=== PATIENT | female | born 1975 | race American Indian/Alaskan Native ===

== ENCOUNTER 2017-10-09 12:31 | Emergency (ER) | payer SELFPAY ==
[2017-10-09 13:29] LABS: Basophils % (Auto) 0.5 % (0.0-1.8); Eosinophils # (Auto) 0.1 K/mm3 (0.0-0.4); Eosinophils % (Auto) 0.9 % (0.0-4.3); Hematocrit 38.3 % (30.3-42.9); Hemoglobin 12.9 gm/dl (10.1-14.3); Lymphocytes # (Auto) 1.2 K/mm3 (1.2-5.4); Lymphocytes % (Auto) 20.5 % (13.4-35.0); Mean Corpuscular HGB Conc 34 % (30-34); Mean Corpuscular Hemoglobin 31 pg (28-32); Mean Corpuscular Volume 92 fl (79-97); Monocytes # (Auto) 0.4 K/mm3 (0.0-0.8); Monocytes % (Auto) 6.8 % (0.0-7.3); Platelet Count 251 K/mm3 (140-440); Red Blood Count 4.16 M/mm3 (3.65-5.03); Red Cell Distribution Width 13.3 % (13.2-15.2)
[2017-10-09 13:45] LABS: Alanine Aminotransferase 6 units/L (7-56); Albumin 3.8 g/dL (3.9-5); BUN/Creatinine Ratio 18; Blood Urea Nitrogen 7 mg/dL (7-17); Calcium 9.4 mg/dL (8.4-10.2); Hemolysis Index 6; Lipase 35 units/L (13-60)
[2017-10-09] MEDS ORDERED: NACL 0.9% 1000 ML 1,000 ML IV ONE (16:27)
[2017-10-09] MEDS ORDERED: TORADOL IV ONE (16:27)
[2017-10-09] MEDS ORDERED: PEPCID IV ONE (16:27)
[2017-10-09] MEDS ORDERED: ZOFRAN IV ONE ×2 (16:27→19:57)
[2017-10-09 17:20] LABS: HCG Qualitative,Urine TNR (Negative)
[2017-10-09 17:26] LABS: Bacteria,Urine 1+ /HPF (Negative); Mucus,Urine FEW /HPF
[2017-10-09 17:30] LABS: Bilirubin,Urine NEG (Negative); Blood,Urine NEG (Negative); Color,Urine Yellow (Yellow); Urobilinogen,Urine < 2.0 mg/dL (<2.0)
--- NOTE | 2017-10-09 18:42 | Cat Scan Report ---
FINAL REPORT EXAM: CT ABDOMEN PELVIS W CON HISTORY: NV upper abd pain TECHNIQUE: CT of the abdomen and pelvis was performed after the administration of intravenous contrast. Subsequently, CT of the abdomen and pelvis was performed in the delayed phase. Reconstructions were included in the coronal and sagittal planes. PRIORS: None. FINDINGS: Lower thorax: A large bulla is seen in the right lower lobe. There is a nodular density adjacent to the medial portion of this bulla measuring approximately 1.3 centimeters. The visualized portions of the heart are normal. Liver: The liver is normal in attenuation. There is mild intrahepatic biliary ductal dilation. No focal hepatic lesions. Focal fat is seen adjacent to the fissure for ligamentum teres. Gallbladder/ biliary system: There is likely cholelithiasis within the fundus of the gallbladder. No gallbladder wall thickening is seen. The common bile duct appears nondilated. Spleen: No splenic lesions are seen. Pancreas: No pancreatic lesions are seen. No pancreatic duct dilation. Kidneys: No renal masses, cysts or hydronephrosis. Adrenal glands: No adrenal masses. Vasculature: The abdominal and pelvic vasculature is patent without variant anatomy. Lymph nodes: Multiple prominent kimani hepatis, paraceliac, retroperitoneal and perigastric lymph nodes are seen. Bowel, mesentery, peritoneum: No bowel obstruction. No free fluid or free air. The appendix is normal. No colonic diverticulosis. There is wall thickening of the distal esophagus. There distention of the stomach with fluid. Edema is seen surrounding proximal duodenum. A duodenal diverticulum is seen off of the 2nd portion of the duodenum. Urinary bladder: No filling defects are seen. Pelvis: Normal anatomy is noted. No masses. There is a small amount of free fluid in the pelvis. Abdominal wall: No abdominal wall hernia or other subcutaneous findings. Bones: No acute or chronic osseous finding. IMPRESSION: 1. Inflammatory changes surrounding the proximal duodenum may represent duodenitis. Diverticulum off of the 2nd portion of the duodenum. 2. Nonspecific wall thickening of the distal esophagus may represent esophagitis. Suggest further evaluation with EGD when feasible. 3. Nonspecific distention of the stomach with fluid. 4. Small volume of free fluid in the pelvis. 5. Mild intrahepatic biliary ductal dilation. Consider further evaluation with right upper quadrant ultrasound or MRCP. 6. Nonspecific upper abdominal lymph nodes may be reactive versus neoplastic. 7. Probable cholelithiasis. 8. Large bulla in the right lower lobe with an adjacent 1.3 centimeter nodular opacity. This may represent scarring although an underlying pulmonary nodule is not excluded. Recommend further evaluation with chest CT to exclude other pulmonary nodules.
[2017-10-09] MEDS ORDERED: ZOFRAN ONE (19:46)
[2017-10-09] MEDS ORDERED: MORPHINE ONE (19:46)
[2017-10-09] MEDS ORDERED: MORPHINE IV ONE (19:57)
--- NOTE | 2017-10-09 20:28 | Emergency Department Report ---
ED Abdominal Pain HPI - General Chief Complaint: Abdominal Pain Stated Complaint: ABDOMINAL PAIN Time Seen by Provider: 10/09/17 16:05 Source: patient Mode of arrival: Ambulatory Limitations: No Limitations - History of Present Illness Initial Comments: Patient is a 42-year-old female past history of diabetes who is presenting with abdominal pain for the last week. Patient has had nausea vomiting and diarrhea for approximately a week has been waxing waning but has never gone away. Patient denies any fevers chills cough chest pain at this time. Patient does feels that she's having some abdominal distention. Patient states the pain now as a 10 out of 10. Severity scale (0 -10): 4 - Related Data Previous Rx's Medication Instructions Recorded Last Taken Type Ciprofloxacin HCl [Cipro] 500 mg PO BID #14 tablet 10/09/17 Unknown Rx Dicyclomine [Bentyl] 20 mg PO QID #20 tablet 10/09/17 Unknown Rx HYDROcodone/APAP 5-325 [[place] 1 each PO Q6HR PRN #14 tablet 10/09/17 Unknown Rx 5/325] Ondansetron [Zofran Odt] 4 mg PO Q8HR #10 tab.rapdis 10/09/17 Unknown Rx Allergies Allergy/AdvReac Type Severity Reaction Status Date / Time No Known Allergies Allergy Unverified 03/12/13 12:14 ED Review of Systems ROS: Stated complaint: ABDOMINAL PAIN Other details as noted in HPI Comment: All other systems reviewed and negative ED Past Medical Hx - Past Medical History Hx Diabetes: Yes - Surgical History Additional Surgical History: Tubal Ligation - Social History Smoking Status: Never Smoker Substance Use Type: None - Medications Home Medications: Home Medications Medication Instructions Recorded Confirmed Last Taken Type Ciprofloxacin HCl [Cipro] 500 mg PO BID #14 tablet 10/09/17 Unknown Rx Dicyclomine [Bentyl] 20 mg PO QID #20 tablet 10/09/17 Unknown Rx HYDROcodone/APAP 5-325 [[place] 1 each PO Q6HR PRN #14 tablet 10/09/17 Unknown Rx 5/325] Ondansetron [Zofran Odt] 4 mg PO Q8HR #10 tab.rapdis 10/09/17 Unknown Rx ED Physical Exam - General Limitations: No Limitations General appearance: alert, in no apparent distress - Head Head exam: Present: atraumatic, normocephalic - Eye Eye exam: Present: normal appearance - ENT ENT exam: Present: mucous membranes moist - Neck Neck exam: Present: normal inspection - Respiratory Respiratory exam: Present: normal lung sounds bilaterally. Absent: respiratory distress, wheezes, rales, rhonchi - Cardiovascular Cardiovascular Exam: Present: regular rate, normal rhythm. Absent: systolic murmur, diastolic murmur, rubs, gallop - GI/Abdominal GI/Abdominal exam: Present: soft, distended, tenderness (diffuse), normal bowel sounds. Absent: guarding, rebound, rigid - Extremities Exam Extremities exam: Present: normal inspection - Back Exam Back exam: Present: normal inspection - Neurological Exam Neurological exam: Present: alert, oriented X3 - Psychiatric Psychiatric exam: Present: normal affect, normal mood - Skin Skin exam: Present: warm, dry, intact, normal color. Absent: rash ED Course Vital Signs 10/09/17 10/09/17 10/09/17 12:45 16:55 17:00 Temperature 98.4 F Pulse Rate 98 H Respiratory 14 18 Rate Blood Pressure 104/80 O2 Sat by Pulse 94 Oximetry ED Medical Decision Making - Lab Data Result diagrams: 10/09/17 13:01 10/09/17 13:01 Lab Results 10/09/17 10/09/17 10/09/17 Range/Units 13:01 13:01 13:01 WBC 5.8 (4.5-11.0) K/mm3 RBC 4.16 (3.65-5.03) M/mm3 Hgb 12.9 (10.1-14.3) gm/dl Hct 38.3 (30.3-42.9) % MCV 92 (79-97) fl MCH 31 (28-32) pg MCHC 34 (30-34) % RDW 13.3 (13.2-15.2) % Plt Count 251 (140-440) K/mm3 Lymph % (Auto) 20.5 (13.4-35.0) % [place] % (Auto) 6.8 (0.0-7.3) % Eos % (Auto) 0.9 (0.0-4.3) % Baso % (Auto) 0.5 (0.0-1.8) % Lymph # 1.2 (1.2-5.4) K/mm3 [place] # 0.4 (0.0-0.8) K/mm3 Eos # 0.1 (0.0-0.4) K/mm3 Baso # 0.0 (0.0-0.1) K/mm3 Seg Neutrophils % 71.3 H (40.0-70.0) % Seg Neutrophils # 4.1 (1.8-7.7) K/mm3 Sodium 136 L (137-145) mmol/L Potassium 4.9 (3.6-5.0) mmol/L Chloride 95.8 L (98-107) mmol/L Carbon Dioxide 27 (22-30) mmol/L Anion Gap 18 mmol/L BUN 7 (7-17) mg/dL Creatinine 0.4 L (0.7-1.2) mg/dL Estimated GFR > 60 ml/min BUN/Creatinine Ratio 18 % Glucose 355 H (65-100) mg/dL Calcium 9.4 (8.4-10.2) mg/dL Total Bilirubin 0.60 (0.1-1.2) mg/dL AST 10 (5-40) units/L ALT 6 L (7-56) units/L Alkaline Phosphatase 72 (35-129) units/L Total Protein 7.5 (6.3-8.2) g/dL Albumin 3.8 L (3.9-5) g/dL Albumin/Globulin Ratio 1.0 % Lipase 35 (13-60) units/L HCG, Qual Negative (Negative) Urine Color (Yellow) Urine Turbidity (Clear) Urine pH (5.0-7.0) Ur Specific [place] (1.003-1.030) Urine Protein (Negative) mg/dL Urine Glucose (UA) (Negative) mg/dL Urine Ketones (Negative) mg/dL Urine Blood (Negative) Urine Nitrite (Negative) Ur Reducing Substances Urine Bilirubin (Negative) Urine Ictotest Urine Urobilinogen (<2.0) mg/dL Ur Leukocyte Esterase (Negative) Urine WBC (Auto) (0.0-6.0) /HPF Urine RBC (Auto) (0.0-6.0) /HPF U Epithel Cells (Auto) (0-13.0) /HPF Urine Bacteria (Auto) (Negative) /HPF Urine Mucus /HPF Urine HCG, Qual 10/09/17 Range/Units 16:40 WBC (4.5-11.0) K/mm3 RBC (3.65-5.03) M/mm3 Hgb (10.1-14.3) gm/dl Hct (30.3-42.9) % MCV (79-97) fl MCH (28-32) pg MCHC (30-34) % RDW (13.2-15.2) % Plt Count (140-440) K/mm3 Lymph % (Auto) (13.4-35.0) % [place] % (Auto) (0.0-7.3) % Eos % (Auto) (0.0-4.3) % Baso % (Auto) (0.0-1.8) % Lymph # (1.2-5.4) K/mm3 [place] # (0.0-0.8) K/mm3 Eos # (0.0-0.4) K/mm3 Baso # (0.0-0.1) K/mm3 Seg Neutrophils % (40.0-70.0) % Seg Neutrophils # (1.8-7.7) K/mm3 Sodium (137-145) mmol/L Potassium (3.6-5.0) mmol/L Chloride (98-107) mmol/L Carbon Dioxide (22-30) mmol/L Anion Gap mmol/L BUN (7-17) mg/dL Creatinine (0.7-1.2) mg/dL Estimated GFR ml/min BUN/Creatinine Ratio % Glucose (65-100) mg/dL Calcium (8.4-10.2) mg/dL Total Bilirubin (0.1-1.2) mg/dL AST (5-40) units/L ALT (7-56) units/L Alkaline Phosphatase (35-129) units/L Total Protein (6.3-8.2) g/dL Albumin (3.9-5) g/dL Albumin/Globulin Ratio % Lipase (13-60) units/L HCG, Qual (Negative) Urine Color Yellow (Yellow) Urine Turbidity Clear (Clear) Urine pH 6.0 (5.0-7.0) Ur Specific [place] 1.038 H (1.003-1.030) Urine Protein 30 mg/dl (Negative) mg/dL Urine Glucose (UA) >=500 (Negative) mg/dL Urine Ketones 80 (Negative) mg/dL Urine Blood Neg (Negative) Urine Nitrite Neg (Negative) Ur Reducing Substances Not Reportable Urine Bilirubin Neg (Negative) Urine Ictotest Not Reportable Urine Urobilinogen < 2.0 (<2.0) mg/dL Ur Leukocyte Esterase Lg (Negative) Urine WBC (Auto) 76.0 H (0.0-6.0) /HPF Urine RBC (Auto) 6.0 (0.0-6.0) /HPF U Epithel Cells (Auto) 13.0 (0-13.0) /HPF Urine Bacteria (Auto) 1+ (Negative) /HPF Urine Mucus Few /HPF Urine HCG, Qual TNR - Radiology Data Radiology results: report reviewed CT abdomen and pelvis shows multiple findings. Patient has evidence of duodenitis and esophagitis with legs secondary to her vomiting. Patient also has cholelithiasis without signs of cholecystitis. Patient has some intrahepatic ductal dilation as well. Patient's bladder wall appears thickened consistent with acute cystitis. - Medical Decision Making Patient is a 42-year-old female who is presenting with abdominal pain nausea vomiting. Patient was hydrated and given pain meds and is feeling much better at the time of discharge. Patient will be started on antibiotics for her urinary tract infection will be referred to [facility] as well as a surgeon for potential removal of her gallbladder Critical care attestation.: If time is entered above; I have spent that time in minutes in the direct care of this critically ill patient, excluding procedure time. ED Disposition Clinical Impression: Hyperglycemia, Biliary colic Acute cystitis Qualifiers: Hematuria presence: without hematuria Qualified Code(s): N30.00 - Acute cystitis without hematuria Disposition: TO HOME OR SELFCARE Is pt being admited?: No Does the pt Need Aspirin: No Condition: Stable Instructions: Abdominal Pain (ED), Urinary Tract Infection in Women (ED), Biliary Colic (ED), Acute Nausea and Vomiting (ED) Prescriptions: Ciprofloxacin HCl [Cipro] 500 mg PO BID #14 tablet Dicyclomine [Bentyl] 20 mg PO QID #20 tablet HYDROcodone/APAP 5-325 [[place] 5/325] 1 each PO Q6HR PRN #14 tablet PRN Reason: Pain Ondansetron [Zofran Odt] 4 mg PO Q8HR #10 tab.rapdis Referrals: GBARIELLE OLIVARES MD [Primary Care Provider] - 3-5 Days
[2017-10-09 22:17] VITALS: BP 113/69
== END 2017-10-09 20:50 | disposition home or self-care (01) ==
LOC: ED 12:31
DX: K80.50 Calculus of bile duct without cholangitis or cholecystitis without obstruction (principal); N30.00 Acute cystitis without hematuria; E11.65 Type 2 diabetes mellitus with hyperglycemia; Z98.51 Tubal ligation status
CPT/HCPCS: 36415; 74177; 80053; 81001; 81025; 83690; 84703; 85025; 96361; 96374; 96375; 96376; 99284; J1885; J2270; J2405; J7030; Q9967

== ENCOUNTER 2019-02-18 12:02 | Inpatient (IN) | payer OTHER ==
[2019-02-18] MEDS ORDERED: NACL 0.9% 1000 ML 1,000 ML IV ONE ×4 (12:16→15:39)
[2019-02-18] MEDS ORDERED: PEPCID IV ONE (12:22)
[2019-02-18] MEDS ORDERED: ZOFRAN IV ONE (12:22)
--- NOTE | 2019-02-18 12:42 | Emergency Department Report ---
ED Abdominal Pain HPI - General Chief Complaint: Hyperglycemia Stated Complaint: HBS Time Seen by Provider: 02/18/19 12:15 Source: patient, EMS Mode of arrival: Stretcher Limitations: No Limitations - History of Present Illness Initial Comments: 43-year-old female with a past medical history of insulin-dependent diabetes and previous tubal ligation (denies other abd surgeries) presents to the hospital complaining of hyperglycemia and epigastric pain. Patient has not taken her asthma since yesterday. She is found lethargic on the floor by family members. She complains of 10/10 upper abdominal pain, constant, and worse with palpation. Positive associated nausea, vomiting, diarrhea. No dysuria or fever reported. Patient is lethargic and ill appearing but able to answer and nod to questions. Patient presented here in October 2018 for abdominal pain and CT abd/pelvis with IV contrast showed the followin. Inflammatory changes surrounding the proximal duodenum may represent duodenitis. Diverticulum off of the 2nd portion of the duodenum. 2. Nonspecific wall thickening of the distal esophagus may represent esophagitis. Suggest further evaluation with EGD when feasible. 3. Nonspecific distention of the stomach with fluid. 4. Small volume of free fluid in the pelvis. 5. Mild intrahepatic biliary ductal dilation. Consider further evaluation with right upper quadrant ultrasound or MRCP. 6. Nonspecific upper abdominal lymph nodes may be reactive versus neoplastic. 7. Probable cholelithiasis. 8. Large bulla in the right lower lobe with an adjacent 1.3 centimeter nodular opacity. This may represent scarring although an underlying pulmonary nodule is not excluded. Recommend further evaluation with chest CT to exclude other pulmonary nodules. - Related Data Previous Rx's Medication Instructions Recorded Last Taken Type Ciprofloxacin HCl [Cipro] 500 mg PO BID #14 tablet 10/09/17 Unknown Rx Dicyclomine [Bentyl] 20 mg PO QID #20 tablet 10/09/17 Unknown Rx HYDROcodone/APAP 5-325 [[place] 1 each PO Q6HR PRN #14 tablet 10/09/17 Unknown Rx 5/325] Ondansetron [Zofran Odt] 4 mg PO Q8HR #10 tab.rapdis 10/09/17 Unknown Rx Allergies Allergy/AdvReac Type Severity Reaction Status Date / Time No Known Allergies Allergy Unverified 03/12/13 12:14 ED Review of Systems ROS: Stated complaint: HBS Other details as noted in HPI Comment: All other systems reviewed and negative ED Past Medical Hx - Past Medical History Previous Medical History?: Yes Hx Diabetes: Yes - Surgical History Past Surgical History?: Yes Additional Surgical History: Tubal Ligation - Social History Smoking Status: Never Smoker Substance Use Type: None - Medications Home Medications: Home Medications Medication Instructions Recorded Confirmed Last Taken Type Ciprofloxacin HCl [Cipro] 500 mg PO BID #14 tablet 10/09/17 Unknown Rx Dicyclomine [Bentyl] 20 mg PO QID #20 tablet 10/09/17 Unknown Rx HYDROcodone/APAP 5-325 [[place] 1 each PO Q6HR PRN #14 tablet 10/09/17 Unknown Rx 5/325] Ondansetron [Zofran Odt] 4 mg PO Q8HR #10 tab.rapdis 10/09/17 Unknown Rx ED Physical Exam - General Limitations: No Limitations - Other Other exam information: General: Ill-appearing Eyes: Normal appearance, pupils equal reactive to light, extraocular movements intact ENT: Dry mucous membranes Neck: Normal appearance, no C-spine tenderness, no meningismus Chest: Clear to auscultation bilaterally, no wheezes, rales, or crackles Cardiovascular: Regular rate and rhythm Abdomen: Soft, nondistended, epigastric and right upper quadrant, right lower quadrant tenderness, no rebound or guarding, normal bowel sounds Back: Normal inspection, nontender Extremity: Normal inspection, no deformity, full range of motion Neuro: Lethargic and oriented 3, speech clear, no gross motor or sensory deficit Skin: No rash, warmth, or erythema ED Course Vital Signs 02/18/19 02/18/19 02/18/19 12:13 12:26 12:30 Temperature 98.1 F Pulse Rate 116 H Respiratory 28 H Rate Blood Pressure 94/61 Blood Pressure [Right] O2 Sat by Pulse 96 Oximetry 02/18/19 02/18/19 02/18/19 12:39 12:46 13:00 Temperature Pulse Rate 116 H 119 H Respiratory 28 H 24 14 Rate Blood Pressure 94/61 96/61 Blood Pressure [Right] O2 Sat by Pulse 96 97 98 Oximetry 02/18/19 02/18/19 02/18/19 13:15 13:30 13:45 Temperature Pulse Rate 115 H 119 H 111 H Respiratory 29 H 19 24 Rate Blood Pressure 100/68 106/77 86/51 Blood Pressure [Right] O2 Sat by Pulse 97 97 98 Oximetry 02/18/19 02/18/19 02/18/19 14:00 14:08 14:10 Temperature Pulse Rate 110 H 111 H 115 H Respiratory 16 25 H 30 H Rate Blood Pressure 91/51 91/51 118/77 Blood Pressure [Right] O2 Sat by Pulse 99 98 Oximetry 02/18/19 02/18/19 02/18/19 14:12 14:14 14:16 Temperature Pulse Rate 114 H 113 H 111 H Respiratory 24 21 21 Rate Blood Pressure 118/77 118/77 98/58 Blood Pressure [Right] O2 Sat by Pulse 99 98 98 Oximetry 02/18/19 02/18/19 02/18/19 14:18 14:22 15:14 Temperature Pulse Rate 111 H 113 H Respiratory 12 26 H Rate Blood Pressure 102/59 118/80 Blood Pressure 117/88 [Right] O2 Sat by Pulse 99 Oximetry - Consultations Consultation #1: 02/18/19 15:40 case d/w Gen surgeon health information tech Dr cano, will come to evaluate pt. henry request. pt will likely go to OR for ex lap ED Medical Decision Making - Lab Data Result diagrams: 02/18/19 13:18 02/18/19 13:18 Lab Results 02/18/19 02/18/19 02/18/19 Range/Units 12:36 13:18 13:18 WBC 4.7 (4.5-11.0) K/mm3 RBC 4.43 (3.65-5.03) M/mm3 Hgb 14.3 (10.1-14.3) gm/dl Hct 43.6 H (30.3-42.9) % MCV 99 H (79-97) fl MCH 32 (28-32) pg MCHC 33 (30-34) % RDW 13.3 (13.2-15.2) % Plt Count 345 (140-440) K/mm3 Lymph % (Auto) 5.3 L (13.4-35.0) % [place] % (Auto) 5.6 (0.0-7.3) % Eos % (Auto) 0.0 (0.0-4.3) % Baso % (Auto) 0.1 (0.0-1.8) % Lymph # 0.2 L (1.2-5.4) K/mm3 [place] # 0.3 (0.0-0.8) K/mm3 Eos # 0.0 (0.0-0.4) K/mm3 Baso # 0.0 (0.0-0.1) K/mm3 Seg Neutrophils % 89.0 H (40.0-70.0) % Seg Neutrophils # 4.2 (1.8-7.7) K/mm3 VBG pH (7.320-7.420) Sodium 135 L (137-145) mmol/L Potassium 5.2 H (3.6-5.0) mmol/L Chloride 90.8 L (98-107) mmol/L Carbon Dioxide 16 L (22-30) mmol/L Anion Gap 33 mmol/L BUN 25 H (7-17) mg/dL Creatinine 1.0 (0.7-1.2) mg/dL Estimated GFR > 60 ml/min BUN/Creatinine Ratio 25 % Glucose 988 H* (65-100) mg/dL POC Glucose > 500 H (70-105) Calcium 8.7 (8.4-10.2) mg/dL Phosphorus (2.5-4.5) mg/dL Magnesium (1.7-2.3) mg/dL Total Bilirubin 0.50 (0.1-1.2) mg/dL AST 22 (5-40) units/L ALT 10 (7-56) units/L Alkaline Phosphatase 58 (35-129) units/L Total Protein 6.0 L (6.3-8.2) g/dL Albumin 3.5 L (3.9-5) g/dL Albumin/Globulin Ratio 1.4 % Lipase 32 (13-60) units/L HCG, Qual (Negative) 02/18/19 02/18/19 02/18/19 Range/Units 13:18 13:18 13:18 WBC (4.5-11.0) K/mm3 RBC (3.65-5.03) M/mm3 Hgb (10.1-14.3) gm/dl Hct (30.3-42.9) % MCV (79-97) fl MCH (28-32) pg MCHC (30-34) % RDW (13.2-15.2) % Plt Count (140-440) K/mm3 Lymph % (Auto) (13.4-35.0) % [place] % (Auto) (0.0-7.3) % Eos % (Auto) (0.0-4.3) % Baso % (Auto) (0.0-1.8) % Lymph # (1.2-5.4) K/mm3 [place] # (0.0-0.8) K/mm3 Eos # (0.0-0.4) K/mm3 Baso # (0.0-0.1) K/mm3 Seg Neutrophils % (40.0-70.0) % Seg Neutrophils # (1.8-7.7) K/mm3 VBG pH 7.319 L (7.320-7.420) Sodium (137-145) mmol/L Potassium (3.6-5.0) mmol/L Chloride (98-107) mmol/L Carbon Dioxide (22-30) mmol/L Anion Gap mmol/L BUN (7-17) mg/dL Creatinine (0.7-1.2) mg/dL Estimated GFR ml/min BUN/Creatinine Ratio % Glucose (65-100) mg/dL POC Glucose (70-105) Calcium (8.4-10.2) mg/dL Phosphorus 8.20 H (2.5-4.5) mg/dL Magnesium 1.80 (1.7-2.3) mg/dL Total Bilirubin (0.1-1.2) mg/dL AST (5-40) units/L ALT (7-56) units/L Alkaline Phosphatase (35-129) units/L Total Protein (6.3-8.2) g/dL Albumin (3.9-5) g/dL Albumin/Globulin Ratio % Lipase (13-60) units/L HCG, Qual Negative (Negative) - EKG Data -: EKG Interpreted by [facility] EKG shows normal: sinus rhythm, axis (qrs 82), QRS complexes (qrsd 88), ST-T waves (no stemi) Rate: tachycardia (117) - Radiology Data Radiology results: report reviewed CT abdomen pelvis w con INDICATION: MAIN: TODAY, upper and lower abd pain, uncontrolled dm [id number], 100ML. TECHNIQUE: All CT scans at this location are performed using CT dose reduction for ALARA by means of automated exposure control. COMPARISON: 10/09/2017 FINDINGS: Large bulla in the right lower lobe but no acute disease in the lung bases. Since the previous exam, there has developed considerable ascites throughout the abdomen and pelvis. In addition, there is now moderate free intraperitoneal gas. Inflammatory changes are again demonstrated in the duodenum and distal stomach. The entire small bowel is thick walled and edematous mild but less prominent changes are seen in the colon, especially the transverse colon. Liver, spleen, pancreas, kidneys and adrenals are negative. There appear to be splenic and gastrohepatic varices. Pelvis Bladder is moderately distended. Uterus appears negative. IMPRESSION: 1. Free intraperitoneal air with extensive inflammatory change involving the entire small bowel and, to a lesser extent, the colon. Location of the bowel perforation is not known. The small bowel findings are new since October. Dr. Benitez in the ER was notified at 1525 hours EST. 2. Small, possibly cirrhotic liver, with splenic and gastrohepatic varices as well as ascites. The ascites is also a new finding since October. - Medical Decision Making Urine collection, Blood cultures, and lactic ordered and pending at disposition Patient has DKA plus perforating this with extensive bowel inflammation Patient treated with Levaquin and Flagyl General surgeon consulted for possible surgery. Hospitalist informed for admission pt will need icu admission. - Differential Diagnosis DKA, gastritis, UTI, cholecystitis Critical Care Time: No Critical care attestation.: If time is entered above; I have spent that time in minutes in the direct care of this critically ill patient, excluding procedure time. ED Disposition Clinical Impression: DKA (diabetic ketoacidoses), Perforated abdominal viscus, Inflammation of small intestine Disposition: OP ADMIT IP TO THIS HOSP Is pt being admited?: Yes Condition: Serious Time of Disposition: 15:59 (DR Gutierrez/hosp)
[2019-02-18] MEDS ORDERED: D50W (25GM) Syringe IV PRN (12:51)
[2019-02-18] MEDS ORDERED: HumuLIN R IV ONE (12:52)
[2019-02-18 13:32] LABS: Basophils % (Auto) 0.1 % (0.0-1.8); Hematocrit 43.6 % (30.3-42.9); Hemoglobin 14.3 gm/dl (10.1-14.3); Lymphocytes # (Auto) 0.2 K/mm3 (1.2-5.4); Lymphocytes % (Auto) 5.3 % (13.4-35.0); Mean Corpuscular HGB Conc 33 % (30-34); Mean Corpuscular Volume 99 fl (79-97); Monocytes # (Auto) 0.3 K/mm3 (0.0-0.8); Monocytes % (Auto) 5.6 % (0.0-7.3); Platelet Count 345 K/mm3 (140-440); Red Blood Count 4.43 M/mm3 (3.65-5.03); Red Cell Distribution Width 13.3 % (13.2-15.2)
[2019-02-18 14:24] LABS: Alanine Aminotransferase 10 units/L (7-56); Albumin 3.5 g/dL (3.9-5); BUN/Creatinine Ratio 25; Blood Urea Nitrogen 25 mg/dL (7-17); Calcium 8.7 mg/dL (8.4-10.2); Hemolysis Index 16
[2019-02-18] MEDS ORDERED: MORPHINE IV ONE (14:24)
[2019-02-18] MEDS ORDERED: LEVAQUIN 750MG/150ML 750 MG/150 ML BAG IV ONE (15:27)
[2019-02-18] MEDS ORDERED: FLAGYL 500 MG/100 ML 500 MG/100 ML BAG IV ONE (15:28)
--- NOTE | 2019-02-18 15:37 | Cat Scan Report ---
CT abdomen pelvis w con INDICATION: MAIN: TODAY, upper and lower abd pain, uncontrolled dm [id number], 100ML. TECHNIQUE: All CT scans at this location are performed using CT dose reduction for ALARA by means of automated e xposure control. COMPARISON: 10/09/2017 FINDINGS: Large bulla in the right lower lobe but no acute disease in the lung bases. Since the previous exam, there has developed considerable ascites throughout the abdomen and pelvis. In addition, there is now moderate free intraperitoneal gas. Inflammatory changes are again demonstrated in the duodenum and d istal stomach. The entire small bowel is thick walled and edematous mild but less prominent changes a re seen in the colon, especially the transverse colon. Liver, spleen, pancreas, kidneys and adrenals are negative. There appear to be splenic and gastrohepa tic varices. Pelvis Bladder is moderately distended. Uterus appears negative. IMPRESSION: 1. Free intraperitoneal air with extensive inflammatory change involving the entire small bowel and, to a lesser extent, the colon. Location of the bowel perforation is not known. The small bowel findin gs are new since October. Dr. Benitez in the ER was notified at 1525 hours EST. 2. Small, possibly cirrhotic liver, with splenic and gastrohepatic varices as well as ascites. The as cites is also a new finding since October. Signer Name: Jona June MD Signed: 02/18/2019 3:33 PM Workstation Name: [id number]
[2019-02-18] MEDS: HumuLIN R 100 UNITS in NACL 0.9% 99 ML IV SCH (15:42)
[2019-02-18 16:06] LABS: BUN/Creatinine Ratio 23; Blood Urea Nitrogen 21 mg/dL (7-17); Calcium 8.5 mg/dL (8.4-10.2); Hemolysis Index 45
[2019-02-18 16:41] LABS: Bilirubin,Urine NEG (Negative); Blood,Urine LG (Negative); Color,Urine Yellow (Yellow); Mucus,Urine FEW /HPF; Urobilinogen,Urine < 2.0 mg/dL (<2.0)
[2019-02-18] MEDS ORDERED: AMIDATE IV ONE ×2 (16:49→16:59)
[2019-02-18] MEDS ORDERED: DIPRIVAN 10 MG/ML IV ONE (16:49)
[2019-02-18] MEDS ORDERED: ZEMURON IV ONE (16:49)
[2019-02-18] MEDS ORDERED: QUELICIN ONE (16:49)
[2019-02-18] MEDS ORDERED: SUBLIMAZE ONE (16:50)
[2019-02-18] MEDS ORDERED: XYLOCAINE CARDIAC IV ONE (16:59)
[2019-02-18] MEDS ORDERED: PHENYLEPHRINE/NS Syringe 1,000 MCG/10 ML IV ONE (17:00)
[2019-02-18] MEDS ORDERED: ZOFRAN ONE (17:00)
[2019-02-18 17:06] LABS: BUN/Creatinine Ratio 23; Blood Urea Nitrogen 21 mg/dL (7-17); Calcium 8.6 mg/dL (8.4-10.2); Hemolysis Index 11
--- NOTE | 2019-02-18 17:25 | Consultation ---
History of Present Illness Consult date: 02/18/19 Reason for consult: abdominal pain Chief complaint: abdominal pain - History of present illness History of present illness: 43 yo F with hx of DM presents to ER with 4 day hx of upper abdominal pain. Now pain is generalized. It is sharp, severe, 10/10. No alleviating factors. Moving makes it worse. +n/v. +diarrhea. No f/c, cp, sob. Past History Past Medical History: diabetes Past Surgical History: Other (tubal ligation) Social history: no significant social history Family history: no significant family history Medications and Allergies Allergies Allergy/AdvReac Type Severity Reaction Status Date / Time No Known Allergies Allergy Unverified 03/12/13 12:14 Home Medications Medication Instructions Recorded Confirmed Last Taken Type Ciprofloxacin HCl [Cipro] 500 mg PO BID #14 tablet 10/09/17 Unknown Rx Dicyclomine [Bentyl] 20 mg PO QID #20 tablet 10/09/17 Unknown Rx HYDROcodone/APAP 5-325 [[place] 1 each PO Q6HR PRN #14 tablet 10/09/17 Unknown Rx 5/325] Ondansetron [Zofran Odt] 4 mg PO Q8HR #10 tab.rapdis 10/09/17 Unknown Rx Active Meds: Active Medications Dextrose (D50w (25gm) Syringe) 0 ml IV PRN PRN PRN Reason: Hypoglycemia Insulin Human Regular 100 (units/ Sodium Chloride) 100 mls @ 1 mls/hr IV TITR ALDEN; Protocol Last Admin: 02/18/19 15:42 Dose: 8 units/hr, 8 mls/hr Documented by: Review of Systems All systems: negative (10 pt ROS performed and negative except for that listed in HPI) Exam Vital Signs Temp 98.1 F 02/18/19 12:13 Narrative exam: Gen: AAOx3. NAD ENT: no scleral icterus or conjunctival pallor. Mild exopthalmos CV: S1, S2+ resp: even and unlabored Abd: soft, distended, diffusely TTP. +rebound and guarding Ext: no c/c/e Results - Labs 02/18/19 13:18 02/18/19 15:43 Abnormal lab results 02/18/19 02/18/19 02/18/19 Range/Units 12:36 13:18 13:18 Hct 43.6 H (30.3-42.9) % MCV 99 H (79-97) fl Lymph % (Auto) 5.3 L (13.4-35.0) % Lymph # 0.2 L (1.2-5.4) K/mm3 Seg Neutrophils % 89.0 H (40.0-70.0) % VBG pH (7.320-7.420) Sodium 135 L (137-145) mmol/L Potassium 5.2 H (3.6-5.0) mmol/L Chloride 90.8 L (98-107) mmol/L Carbon Dioxide 16 L (22-30) mmol/L BUN 25 H (7-17) mg/dL Glucose 988 H* (65-100) mg/dL POC Glucose > 500 H (70-105) Lactic Acid (0.7-2.0) mmol/L Phosphorus (2.5-4.5) mg/dL Total Protein 6.0 L (6.3-8.2) g/dL Albumin 3.5 L (3.9-5) g/dL Urine WBC (Auto) (0.0-6.0) /HPF 02/18/19 02/18/19 02/18/19 Range/Units 13:18 13:18 15:34 Hct (30.3-42.9) % MCV (79-97) fl Lymph % (Auto) (13.4-35.0) % Lymph # (1.2-5.4) K/mm3 Seg Neutrophils % (40.0-70.0) % VBG pH 7.319 L (7.320-7.420) Sodium 133 L (137-145) mmol/L Potassium (3.6-5.0) mmol/L Chloride 97.5 L (98-107) mmol/L Carbon Dioxide 14 L (22-30) mmol/L BUN 21 H (7-17) mg/dL Glucose 822 H* (65-100) mg/dL POC Glucose (70-105) Lactic Acid (0.7-2.0) mmol/L Phosphorus 8.20 H (2.5-4.5) mg/dL Total Protein (6.3-8.2) g/dL Albumin (3.9-5) g/dL Urine WBC (Auto) (0.0-6.0) /HPF 02/18/19 02/18/19 02/18/19 Range/Units 15:43 15:43 15:54 Hct (30.3-42.9) % MCV (79-97) fl Lymph % (Auto) (13.4-35.0) % Lymph # (1.2-5.4) K/mm3 Seg Neutrophils % (40.0-70.0) % VBG pH (7.320-7.420) Sodium 134 L (137-145) mmol/L Potassium (3.6-5.0) mmol/L Chloride 94.7 L (98-107) mmol/L Carbon Dioxide 18 L (22-30) mmol/L BUN 21 H (7-17) mg/dL Glucose (65-100) mg/dL POC Glucose (70-105) Lactic Acid 4.30 H* (0.7-2.0) mmol/L Phosphorus (2.5-4.5) mg/dL Total Protein (6.3-8.2) g/dL Albumin (3.9-5) g/dL Urine WBC (Auto) 24.0 H (0.0-6.0) /HPF Diabetes panel 02/18/19 02/18/19 02/18/19 Range/Units 13:18 15:34 15:43 Sodium 135 L 133 L 134 L (137-145) mmol/L Potassium 5.2 H 4.1 D 4.3 (3.6-5.0) mmol/L Chloride 90.8 L 97.5 L 94.7 L (98-107) mmol/L Carbon Dioxide 16 L 14 L 18 L (22-30) mmol/L BUN 25 H 21 H 21 H (7-17) mg/dL Creatinine 1.0 0.9 0.9 (0.7-1.2) mg/dL Glucose 988 H* 822 H* (65-100) mg/dL Calcium 8.7 8.5 8.6 (8.4-10.2) mg/dL AST 22 (5-40) units/L ALT 10 (7-56) units/L Alkaline Phosphatase 58 (35-129) units/L Total Protein 6.0 L (6.3-8.2) g/dL Albumin 3.5 L (3.9-5) g/dL Calcium panel 02/18/19 02/18/19 02/18/19 Range/Units 13:18 13:18 15:34 Calcium 8.7 8.5 (8.4-10.2) mg/dL Phosphorus 8.20 H (2.5-4.5) mg/dL Albumin 3.5 L (3.9-5) g/dL 02/18/19 Range/Units 15:43 Calcium 8.6 (8.4-10.2) mg/dL Phosphorus (2.5-4.5) mg/dL Albumin (3.9-5) g/dL Pituitary panel 02/18/19 02/18/19 02/18/19 Range/Units 13:18 15:34 15:43 Sodium 135 L 133 L 134 L (137-145) mmol/L Potassium 5.2 H 4.1 D 4.3 (3.6-5.0) mmol/L Chloride 90.8 L 97.5 L 94.7 L (98-107) mmol/L Carbon Dioxide 16 L 14 L 18 L (22-30) mmol/L BUN 25 H 21 H 21 H (7-17) mg/dL Creatinine 1.0 0.9 0.9 (0.7-1.2) mg/dL Glucose 988 H* 822 H* (65-100) mg/dL Calcium 8.7 8.5 8.6 (8.4-10.2) mg/dL Adrenal panel 02/18/19 02/18/19 02/18/19 Range/Units 13:18 15:34 15:43 Sodium 135 L 133 L 134 L (137-145) mmol/L Potassium 5.2 H 4.1 D 4.3 (3.6-5.0) mmol/L Chloride 90.8 L 97.5 L 94.7 L (98-107) mmol/L Carbon Dioxide 16 L 14 L 18 L (22-30) mmol/L BUN 25 H 21 H 21 H (7-17) mg/dL Creatinine 1.0 0.9 0.9 (0.7-1.2) mg/dL Glucose 988 H* 822 H* (65-100) mg/dL Calcium 8.7 8.5 8.6 (8.4-10.2) mg/dL Total Bilirubin 0.50 (0.1-1.2) mg/dL AST 22 (5-40) units/L ALT 10 (7-56) units/L Alkaline Phosphatase 58 (35-129) units/L Total Protein 6.0 L (6.3-8.2) g/dL Albumin 3.5 L (3.9-5) g/dL - Imaging CT scan - abdomen: report reviewed, image reviewed CT scan - pelvis: report reviewed, image reviewed Assessment and Plan 43 yo F with 1.perforated abdominal viscus 2 septic shock 3. DKA Plan; 1. admit to ICU to hospitalist service 2. insulin gtt, monitor blood glucose 3. NPO 4. aggressive IVF hydration 5. DVT ppx 6. prn pain control 7. henry catheter and NGT will be placed in OR 8. type and screen pending 9. Recommend emergency operative intervention - Exploratory laparotomy, possible bowel resection, and placement of central line. All questions answered and consent obtained from patient. Thank you, please call with questions.
[2019-02-18] MEDS ORDERED: ZOFRAN IV PRN (17:33)
[2019-02-18] MEDS ORDERED: ADRENALIN ONE (17:35)
[2019-02-18] MEDS ORDERED: NACL 0.9% 1000 ML 1,000 ML IV SCH (18:00)
[2019-02-18 18:30] LABS: INR 1.53 (0.87-1.13)
--- NOTE | 2019-02-18 18:30 | Anesthesia Consultation ---
Anesthesia Consult and Med Hx Date of service: 02/18/19 - Airway Anesthetic Teeth Evaluation: Poor ROM Head & Neck: Adequate Mental/Hyoid Distance: Adequate Mallampati Class: Class III Intubation Access Assessment: Possibly Difficult (patient has tongue ring and multiple facial piercings) - Pulmonary Exam CTA: Yes - Cardiac Exam Cardiac Exam: RRR (tachycardic) - Pre-Operative Health Status ASA Pre-Surgery Classification: ASA4, Emergency Proposed Anesthetic Plan: General - Pulmonary Hx Smoking: No Hx Respiratory Symptoms: No - Cardiovascular System Hx Hypertension: No Hx Heart Attack/AMI: No - Central Nervous System Hx Seizures: No CVA: No - Endocrine Hx Renal Disease: No Hx Liver Disease: No (patient denies however possible cirrhosis w/ gastric varices on CT ) Hx Insulin Dependent Diabetes: Yes (presented with BG >900 and still significantly elevated immediately preop) Hx Thyroid Disease: No - Hematic Hx Anemia: No - Other Systems Hx Substance Use: No (patient denies) Hx Obesity: No - Additional Comments Anesthesia Medical History Comments: Presented with significantly elevated blood glucose and abdominal pain with concern for abdominal viceral perforation on imaging. No hx anesthetic complications. Tachycardic and hypotensive despite 2L fluid bolus in ED. Insulin gtt infusing. Scheduled antibiotics given. Plan GETA + RSI. Consented for central line by surgeon as patient is difficult IV access. Will draw type and screen and additional glucose/electrolytes after central line placed. Plan for ICU admission with possible postop mechanical ventilation.
[2019-02-18 18:31] LABS: Partial Thromboplastin Time 30.1 Sec. (24.2-36.6)
--- NOTE | 2019-02-18 18:31 | Anesthesia Day of Surgery ---
Anesthesia Day of Surgery - Day of Surgery Patient Examined: Yes Patient H&P Reviewed: Yes Patient is NPO: Yes (plan RSI given acute abdominal process)
[2019-02-18] MEDS ORDERED: NACL 0.9% IR ONE (18:54)
[2019-02-18] MEDS ORDERED: BRIDION IV ONE (19:17)
[2019-02-18 19:32] LABS: BUN/Creatinine Ratio 26; Blood Urea Nitrogen 21 mg/dL (7-17); Calcium 6.1 mg/dL (8.4-10.2); Hemolysis Index 1
--- NOTE | 2019-02-18 19:34 | Post Operative Note ---
Pre-op diagnosis: perforated viscus, septic shock Post-op diagnosis: same Findings: perforated pyloric ulcer with gross spillage of gastric contents throughout the abdomen Procedure: exploratory laparotomy, peritoneal lavage, minnie patch, placement of drain Anesthesia: MILTON Surgeon: IAIN ESTEBAN Costume Director: ENZO MONTALVO Estimated blood loss: minimal Pathology: list (1. peritoneal fluid cultures, 2. biopsy of ulcer) Specimen disposition: to lab Condition: critical Disposition: PACU
[2019-02-18] MEDS ORDERED: DILAUDID IV PRN (19:43)
--- NOTE | 2019-02-18 20:07 | Operative Report ---
PREOPERATIVE DIAGNOSIS: Perforated viscus, septic shock. POSTOPERATIVE DIAGNOSIS: Perforated viscus, septic shock. FINDINGS: Perforated pyloric ulcer with gross spillage of gastric contents throughout the abdomen. PROCEDURE: Exploratory laparotomy, peritoneal lavage, Mark patch, placement of drain, left internal jugular TLC placement. ANESTHESIA: General endotracheal anesthesia. SURGEON: Deanne Crenshaw DO. TOUCH UP PAINTER HAND: Tricia Lei MD ESTIMATED BLOOD LOSS: Minimal. PATHOLOGY: 1. Peritoneal fluid cultures. 2. Biopsy of ulcer. SPECIMEN DISPOSITION: To lab. CONDITION ON DISPOSITION: The patient's critical to PACU. HISTORY OF PRESENT ILLNESS AND INDICATION: The patient is a 43-year-old female who has a history of diabetes mellitus who presented to the Emergency Room with diffuse abdominal pain, nausea, vomiting and was found to have elevated blood sugars. Her blood sugar on the labs was 998 on admission and she was diagnosed with DKA. A CT scan of the abdomen and pelvis was obtained for abdominal pain, which showed pneumoperitoneum and ascites with thickening of the stomach, duodenum and small bowel. PHYSICAL EXAMINATION: Shows the patient was peritoneal tachycardic, hypotensive. Therefore, exploratory laparotomy was recommended. All risks, benefits and alternatives to surgery were discussed with the patient. Consent obtained. PROCEDURE IN DETAIL: The patient was identified in preoperative area and taken back to the operating room and placed on the operating table in supine position. After anesthesia was induced, the patient's blood pressure was low with systolics in the 70s-80s and therefore it was decided to place an emergent TLC. The left neck was prepped and draped in the usual sterile fashion. Timeout performed. Using ultrasound guidance, the left internal jugular vein was identified. The patient was placed in Trendelenburg position. The left internal jugular vein was accessed on the first stick. There was return of dark red nonpulsatile blood. The wire was threaded without resistance. The needle was removed and the tract was dilated. All three ports on the catheter were flushed and the catheter was inserted over the wire and the wire removed. All ports returned blood and flushed easily. The TLC was sutured into place using 3-0 nylon interrupted suture. A Biopatch was applied and covered with a Tegaderm. The abdomen was then prepped and draped in the usual sterile fashion. Timeout was performed. The upper midline incision was made using a #10 blade and carried around the umbilicus. Dissection was carried down through skin and subcutaneous tissue using Bovie electrocautery until the fascia was encountered. Fascia was grasped between 2 hemostats and incised. The peritoneum was then grasped between 2 hemostats and incised with Metzenbaum. The incision was opened up in the cephalad and caudad direction using Bovie electrocautery. There was immediate drainage of grayish brown abdominal fluid. A copious amount was suctioned. During the opening of the abdomen, the falciform ligament was transected. The abdomen was inspected and the fluid was coming from the upper abdomen. The stomach was grossly distended and filled with this fluid. An NG tube was placed by anesthesia and guided into the stomach. The stomach was suctioned out. There was a 1.5 cm perforation at the pylorus with a thickened surrounding tissue. It was at this point decided to do a Mark patch repair. A biopsy of the ulcer was obtained using #10 blade. A tongue of omentum was created and brought up to the perforation without tension. The perforation was first closed with interrupted full thickness 3-0 silk sutures and then the tongue of omentum was tied down over the repair. There was no further spillage of gastric contents after the repair. We then ran the small bowel from the ligament of Treitz to the terminal ileum. The small bowel was covered with fibrinous material as it was being bathed in the gastric contents. However, there was no injury seen to the small bowel. It was slightly thickened throughout. The abdomen was then copiously irrigated with warm saline until the irrigant returned clear. A 19-Citizen Of [place] Bruce drain was placed through the right mid abdomen below the right lobe of the liver and across the repair. It was sutured into place using a 3-0 nylon drain stitch. We then turned our attention to closing the fascia, which was done with looped #1 PDS. The subcutaneous tissue was then irrigated and closed loosely with anjel. The subcutaneous tissue was packed with 1 inch iodoform packing, this was covered with 4 x 4 gauze, ABD pads and Medipore tape. At the end of the case, all sponge, instrument, sharp counts were correct x 2. The patient was awoken from anesthesia and extubated. The patient was taken to PACU in critical condition on Levophed drip. [facility]# [id number] VANIA/TERESITA
--- NOTE | 2019-02-18 20:24 | Post Anesthesia Evaluation ---
- Post Anesthesia Evaluation Patient Participated: Yes Airway Patent: Yes Stable Respiratory Function: Yes Nausea/Vomiting: No Temp > 96.8F: Yes Pain Manageable: Yes Adequeate Hydration: Yes Anesthesia Complications: No Block Receding Appropriately: Not Applicable Patient on Ventilator: No Other Comments: Insulin gtt decreased to 8u/hr while in PACU for glucose 575 (down from 811). MAP 80s on levophed 8mcg/min (MAP goal >65) w/ adequate UOP. Repeat BMP, lactic acid ordered to be drawn once patient arrives in ICU. Stable for transfer.
--- NOTE | 2019-02-18 20:49 | XRay Report ---
CHEST 1 VIEW INDICATION: MAIN: central line placement. COMPARISON: None FINDINGS: SUPPORT DEVICES: Central venous line has tip in good position. Nasogastric tube has tip in the stomac h HEART / MEDIASTINUM: No significant abnormality. LUNGS / PLEURA: Bronchovascular markings are prominent. No significant pulmonary or pleural abnormali ty. No pneumothorax. ADDITIONAL FINDINGS: IMPRESSION: 1. No acute findings. Signer Name: Lucas Ratliff MD Signed: 02/18/2019 8:44 PM Workstation Name: [id number]
[2019-02-18] MEDS: LEVOPHED DRIP 4 MG/NS 250 ML 4 MG/250 ML BAG IV SCH (21:02)
[2019-02-18] MEDS ORDERED: REGLAN IV PRN (21:07)
[2019-02-18] MEDS ORDERED: SODIUM CHLORIDE FLUSH SYRINGE 10 ML IV PRN (21:07)
[2019-02-18] MEDS ORDERED: TYLENOL PO PRN (21:07)
[2019-02-18] MEDS: FLAGYL 500 MG/100 ML 500 MG/100 ML BAG IV SCH (21:45)
[2019-02-18] MEDS: PEPCID IV SCH (21:46)
[2019-02-18] MEDS ORDERED: SODIUM CHLORIDE FLUSH SYRINGE 10 ML IV SCH (22:00)
[2019-02-18] MEDS: ZOFRAN IV PRN (22:51)
[2019-02-18] MEDS: MORPHINE IV PRN (23:00)
[2019-02-18 23:17] LABS: BUN/Creatinine Ratio 30; Blood Urea Nitrogen 18 mg/dL (7-17); Calcium 6.4 mg/dL (8.4-10.2); Hemolysis Index 2
[2019-02-19] MEDS: LEVOPHED DRIP 4 MG/NS 250 ML 4 MG/250 ML BAG IV SCH ×4 (00:59→11:48)
[2019-02-19] MEDS: HumuLIN R 100 UNITS in NACL 0.9% 99 ML IV SCH (01:10)
[2019-02-19] MEDS: D5W/0.45% NACL/KCL 20 MEQ 20 MEQ/1,000 ML BAG IV SCH ×2 (01:10→11:23)
[2019-02-19] MEDS: MORPHINE IV PRN ×4 (02:48→13:30)
[2019-02-19] MEDS ORDERED: SODIUM CHLORIDE FLUSH SYRINGE 10 ML IV PRN (05:06)
[2019-02-19] MEDS: FLAGYL 500 MG/100 ML 500 MG/100 ML BAG IV SCH ×2 (05:15→13:14)
--- NOTE | 2019-02-19 05:23 | History and Physical Report ---
History of Present Illness Date of examination: 02/18/19 Date of admission: 02/18/19 18:30 Chief complaint: Abd pain for 4 days-severe History of present illness: 43-year-old female with a past medical history of insulin-dependent diabetes and peptic ulcer disease presents to the hospital complaining of abdominal pain for 4 days.Initially pain was epigastric and today it got diffuse all over the abdomen.pain is 10 /10 and sharp.Associated with nausea and vomiting.No fever or chills.She was found lethargic on the floor by family members. Notes from October 2018 Patient presented here in October 2018 for abdominal pain and CT abd/pelvis with IV contrast showed the followin. Inflammatory changes surrounding the proximal duodenum may represent duodenitis. Diverticulum off of the 2nd portion of the duodenum. 2. Nonspecific wall thickening of the distal esophagus may represent esophagitis. Suggest further evaluation with EGD when feasible. 3. Nonspecific distention of the stomach with fluid. 4. Small volume of free fluid in the pelvis. 5. Mild intrahepatic biliary ductal dilation. Consider further evaluation with right upper quadrant ultrasound or MRCP. 6. Nonspecific upper abdominal lymph nodes may be reactive versus neoplastic. 7. Probable cholelithiasis. 8. Large bulla in the right lower lobe with an adjacent 1.3 centimeter nodular opacity. This may represent scarring although an underlying pulmonary nodule is not excluded. Recommend further evaluation with chest CT to exclude other pulmonary nodules. Was diagnosed with Hyperglycemia, Biliary colic on October 09 2017 visit Past Medical History Previous Medical History?: Yes Diabetes: Yes Peptic ulcer disease Surgical History Tubal Ligation Social History Smoking Status: Never Smoker Substance Use Type: None Family History Htn Medications Home Medications: Home Medications Medication Instructions Recorded Confirmed Last Taken Type Ciprofloxacin HCl [Cipro] 500 mg PO BID #14 tablet 10/09/17 Unknown Rx Dicyclomine [Bentyl] 20 mg PO QID #20 tablet 10/09/17 Unknown Rx HYDROcodone/APAP 5-325 [Durant 1 each PO Q6HR PRN #14 tablet 10/09/17 Unknown Rx 5/325] Ondansetron [Zofran Odt] 4 mg PO Q8HR #10 tab.rapdis 10/09/17 Unknown Rx Past History Past Medical History: diabetes Past Surgical History: Other (tubal ligation) Social history: no significant social history Family history: no significant family history Medications and Allergies Allergies Allergy/AdvReac Type Severity Reaction Status Date / Time No Known Allergies Allergy Unverified 03/12/13 12:14 Home Medications Medication Instructions Recorded Confirmed Last Taken Type Ciprofloxacin HCl [Cipro] 500 mg PO BID #14 tablet 10/09/17 Unknown Rx Dicyclomine [Bentyl] 20 mg PO QID #20 tablet 10/09/17 Unknown Rx HYDROcodone/APAP 5-325 [[place] 1 each PO Q6HR PRN #14 tablet 10/09/17 Unknown Rx 5/325] Ondansetron [Zofran Odt] 4 mg PO Q8HR #10 tab.rapdis 10/09/17 Unknown Rx Active Meds: Active Medications Acetaminophen (Tylenol) 650 mg PO Q4H PRN PRN Reason: Pain MILD(1-3)/Fever >100.5/MANRIQUE Dextrose (D50w (25gm) Syringe) 0 ml IV PRN PRN PRN Reason: Hypoglycemia Enoxaparin Sodium (Lovenox) 40 mg SUB-Q DAILY ALDEN Famotidine (Pepcid) 20 mg IV BID ALDEN Last Admin: 02/18/19 21:46 Dose: 20 mg Documented by: Hydromorphone HCl (Dilaudid) 0.5 mg IV Q10MIN PRN PRN Reason: Pain , Severe (7-10) Stop: 02/19/19 19:42 Hydromorphone HCl (Dilaudid) 0.5 mg IV Q3H PRN PRN Reason: Pain , Severe (7-10) Insulin Human Regular 100 (units/ Sodium Chloride) 100 mls @ 1 mls/hr IV TITR ALDEN; Protocol Last Titration: 02/19/19 04:34 Dose: 4 units/hr, 4 mls/hr Documented by: Levofloxacin/Dextrose (Levaquin 500mg/100ml) 500 mg in 100 mls @ 100 mls/hr IV Q24HR ALDEN; Protocol Metronidazole (Flagyl 500 Mg/100 Ml) 500 mg in 100 mls @ 100 mls/hr IV Q8HR [facility]; Protocol Last Admin: 02/18/19 21:45 Dose: 100 mls/hr Documented by: Sodium Chloride (Nacl 0.9% 1000 Ml) 1,000 mls @ 125 mls/hr IV DIRECT ALDEN Last Infusion: 02/19/19 01:11 Dose: 0 mls/hr Documented by: Norepinephrine (Levophed Drip 4 Mg/Ns 250 Ml) 4 mg in 250 mls @ 7.5 mls/hr IV TITR [facility]; Protocol Last Admin: 02/19/19 04:27 Dose: 20 mcg/min, 75 mls/hr Documented by: Potassium Chloride/Dextrose/Sod Cl (D5w/0.45% Nacl/Kcl 20 Meq) 20 meq in 1,000 mls @ 125 mls/hr IV DIRECT ALDEN Last Admin: 02/19/19 01:10 Dose: 125 mls/hr Documented by: Piperacillin Sod/Tazobactam Sod (Zosyn/Ns 4.5gm/100ml) 4.5 gm in 100 mls @ 200 mls/hr IV Q8HR [facility]; Protocol Metoclopramide HCl (Reglan) 10 mg IV Q6H PRN PRN Reason: Nausea And Vomiting Morphine Sulfate (Morphine) 2 mg IV Q4H PRN PRN Reason: Pain, Moderate (4-6) Last Admin: 02/19/19 02:48 Dose: 2 mg Documented by: Morphine Sulfate (Morphine) 4 mg IV Q4H PRN PRN Reason: Pain , Severe (7-10) Ondansetron HCl (Zofran) 4 mg IV Q3H PRN PRN Reason: Nausea And Vomiting Last Admin: 02/18/19 22:51 Dose: 4 mg Documented by: Sodium Chloride (Sodium Chloride Flush Syringe 10 Ml) 10 ml IV BID [facility] Last Admin: 02/18/19 21:46 Dose: 10 ml Documented by: Sodium Chloride (Sodium Chloride Flush Syringe 10 Ml) 10 ml IV PRN PRN PRN Reason: LINE FLUSH Sodium Chloride (Sodium Chloride Flush Syringe 10 Ml) 10 ml IV BID [facility] Sodium Chloride (Sodium Chloride Flush Syringe 10 Ml) 10 ml IV PRN PRN PRN Reason: LINE FLUSH Review of Systems All systems: negative Constitutional: lethargy, poor appetite Ears, nose, mouth and throat: no ear pain, no ear discharge, no tinnitis, no decreased hearing Breasts: deferred Cardiovascular: no chest pain, no orthopnea, no palpitations, no rapid/irregular heart beat, no edema, no syncope, no lightheadedness, no shortness of breath Respiratory: no cough, no cough with sputum, no excessive sputum, no hemoptysis, no shortness of breath, no dyspnea on exertion Gastrointestinal: abdominal pain (04/13), nausea, vomiting, heartburn Genitourinary Female: no dyspareunia, no dysmenorrhea, no pelvic pain, no flank pain, no menorrhagia, no dysuria, no urinary frequency, no urgency, no stress incontinence, no post void dribbling Rectal: no pain, no incontinence, no bleeding Musculoskeletal: no neck stiffness, no neck pain, no shooting arm pain, no arm numbness/tingling, no low back pain, no shooting leg pain, no leg numbness/tingling, no redness of joints Integumentary: no rash, no pruritis, no redness, no sores, no wounds, no jaundice, no boils, no blisters Neurological: no tingling, no seizures, no syncope, no tremors Psychiatric: no anxiety, no memory loss, no change in sleep habits, no sleep disturbances, no insomnia, no hypersomnia, no change in appetite Endocrine: no cold intolerance, no heat intolerance, no polyphagia, no excessive thirst, no polydipsia, no polyuria, no nocturia, no excessive sweating, no flushing, no weight change Hematologic/Lymphatic: no easy bruising, no easy bleeding Allergic/Immunologic: no urticaria, no allergic rhinitis, no wheezing Exam - Constitutional Vitals: Temp Pulse Resp BP Pulse Ox 98.7 F 119 H 24 106/58 100 02/19/19 03:31 02/19/19 04:30 02/19/19 04:30 02/19/19 04:30 02/19/19 04:30 General appearance: Present: no acute distress, well-nourished - EENT Eyes: Present: PERRL ENT: hearing intact, clear oral mucosa - Neck Neck: Present: supple, normal ROM - Respiratory Respiratory effort: normal Respiratory: bilateral: CTA - Cardiovascular Heart rate: 98 Rhythm: regular Heart Sounds: Present: S1 & S2. Absent: rub, click - Extremities Extremities: no ischemia, pulses intact, pulses symmetrical, No edema Peripheral Pulses: within normal limits - Abdominal General gastrointestinal: Present: tender, distended, hypoactive bowel sounds Female genitourinary: Present: normal - Rectal Rectal Exam: stool brown - Integumentary Integumentary: Present: clear, warm, dry - Musculoskeletal Musculoskeletal: gait normal, strength equal bilaterally - Psychiatric Psychiatric: appropriate mood/affect, intact judgment & insight - Neurologic Neurologic: CNII-XII intact, moves all extremities - Allied Health Allied health notes reviewed: nursing, case management Results - Labs CBC & Chem 7: 02/18/19 13:18 02/18/19 22:29 Labs: Laboratory Last Values WBC 4.7 K/mm3 (4.5-11.0) 02/18/19 13:18 RBC 4.43 M/mm3 (3.65-5.03) 02/18/19 13:18 Hgb 14.3 gm/dl (10.1-14.3) 02/18/19 13:18 Hct 43.6 % (30.3-42.9) H 02/18/19 13:18 MCV 99 fl (79-97) H 02/18/19 13:18 MCH 32 pg (28-32) 02/18/19 13:18 MCHC 33 % (30-34) 02/18/19 13:18 RDW 13.3 % (13.2-15.2) 02/18/19 13:18 Plt Count 345 K/mm3 (140-440) 02/18/19 13:18 Lymph % (Auto) 5.3 % (13.4-35.0) L 02/18/19 13:18 [facility] % (Auto) 5.6 % (0.0-7.3) 02/18/19 13:18 Eos % (Auto) 0.0 % (0.0-4.3) 02/18/19 13:18 Baso % (Auto) 0.1 % (0.0-1.8) 02/18/19 13:18 Lymph # 0.2 K/mm3 (1.2-5.4) L 02/18/19 13:18 [facility] # 0.3 K/mm3 (0.0-0.8) 02/18/19 13:18 Eos # 0.0 K/mm3 (0.0-0.4) 02/18/19 13:18 Baso # 0.0 K/mm3 (0.0-0.1) 02/18/19 13:18 Seg Neutrophils % 89.0 % (40.0-70.0) H 02/18/19 13:18 Seg Neutrophils # 4.2 K/mm3 (1.8-7.7) 02/18/19 13:18 PT 18.0 Sec. (12.2-14.9) H 02/18/19 18:00 INR 1.53 (0.87-1.13) H 02/18/19 18:00 APTT 30.1 Sec. (24.2-36.6) 02/18/19 18:00 VBG pH 7.319 (7.320-7.420) L 02/18/19 13:18 Sodium 141 mmol/L (137-145) 02/18/19 22:29 Potassium 3.5 mmol/L (3.6-5.0) L 02/18/19 22:29 Chloride 111.9 mmol/L (98-107) H 02/18/19 22:29 Carbon Dioxide 17 mmol/L (22-30) L 02/18/19 22:29 16 mmol/L 02/18/19 22:29 BUN 18 mg/dL (7-17) H 02/18/19 22:29 0.6 mg/dL (0.7-1.2) L 02/18/19 22:29 Estimated GFR > 60 ml/min 02/18/19 22:29 30 % 02/18/19 22:29 Glucose 330 mg/dL (65-100) H 02/18/19 22:29 POC Glucose 207 (70-105) H 02/19/19 04:40 13.0 % (4-6) H 02/18/19 22:29 Lactic Acid 4.30 mmol/L (0.7-2.0) H* 02/18/19 15:43 Calcium 6.4 mg/dL (8.4-10.2) L 02/18/19 22:29 Phosphorus 8.20 mg/dL (2.5-4.5) H 02/18/19 13:18 Magnesium 1.80 mg/dL (1.7-2.3) 02/18/19 13:18 0.50 mg/dL (0.1-1.2) 02/18/19 13:18 AST 22 units/L (5-40) 02/18/19 13:18 ALT 10 units/L (7-56) 02/18/19 13:18 58 units/L (35-129) 02/18/19 13:18 6.0 g/dL (6.3-8.2) L 02/18/19 13:18 3.5 g/dL (3.9-5) L 02/18/19 13:18 1.4 % 02/18/19 13:18 32 units/L (13-60) 02/18/19 13:18 HCG, Qual Negative (Negative) 02/18/19 13:18 Yellow (Yellow) 02/18/19 15:54 Clear (Clear) 02/18/19 15:54 5.0 (5.0-7.0) 02/18/19 15:54 Ur Specific [place] 1.028 (1.003-1.030) 02/18/19 15:54 30 mg/dl mg/dL (Negative) 02/18/19 15:54 >=500 mg/dL (Negative) 02/18/19 15:54 20 mg/dL (Negative) 02/18/19 15:54 Lg (Negative) 02/18/19 15:54 Neg (Negative) 02/18/19 15:54 Neg (Negative) 02/18/19 15:54 < 2.0 mg/dL (<2.0) 02/18/19 15:54 Ur Leukocyte Esterase Neg (Negative) 02/18/19 15:54 24.0 /HPF (0.0-6.0) H 02/18/19 15:54 6.0 /HPF (0.0-6.0) 02/18/19 15:54 U Epithel Cells (Auto) 1.0 /HPF (0-13.0) 02/18/19 15:54 Few /HPF 02/18/19 15:54 Blood Type A POSITIVE 02/18/19 18:00 Antibody Screen Negative 02/18/19 18:00 Short CBC 02/18/19 Range/Units 13:18 WBC 4.7 (4.5-11.0) K/mm3 Hgb 14.3 (10.1-14.3) gm/dl Hct 43.6 H (30.3-42.9) % Plt Count 345 (140-440) K/mm3 BMP 02/18/19 02/18/19 02/18/19 13:18 15:34 15:43 Sodium 135 L 133 L 134 L Potassium 5.2 H 4.1 D 4.3 Chloride 90.8 L 97.5 L 94.7 L Carbon Dioxide 16 L 14 L 18 L BUN 25 H 21 H 21 H Creatinine 1.0 0.9 0.9 Glucose 988 H* 822 H* 811 H* Calcium 8.7 8.5 8.6 02/18/19 02/18/19 18:38 22:29 Sodium 139 141 Potassium 3.5 L 3.5 L Chloride 108.8 H 111.9 H Carbon Dioxide 16 L 17 L BUN 21 H 18 H Creatinine 0.8 0.6 L Glucose 575 H* 330 H Calcium 6.1 L D 6.4 L Liver Function 02/18/19 Range/Units 13:18 Total Bilirubin 0.50 (0.1-1.2) mg/dL AST 22 (5-40) units/L ALT 10 (7-56) units/L Alkaline Phosphatase 58 (35-129) units/L Albumin 3.5 L (3.9-5) g/dL Urine 02/18/19 Range/Units 15:54 Urine Color Yellow (Yellow) Urine pH 5.0 (5.0-7.0) Ur Specific [place] 1.028 (1.003-1.030) Urine Protein 30 mg/dl (Negative) mg/dL Urine Glucose (UA) >=500 (Negative) mg/dL - Imaging and Cardiology EKG: report reviewed CT scan - abdomen: report reviewed Imaging and Cardiology: CT Abdomen IMPRESSION: 1. Free intraperitoneal air with extensive inflammatory change involving the entire small bowel and, to a lesser extent, the colon. Location of the bowel perforation is not known. The small bowel findings are new since October. Dr. Benitez in the ER was notified at 1525 hours EST. 2. Small, possibly cirrhotic liver, with splenic and gastrohepatic varices as well as ascites. The ascites is also a new finding since October. Assessment and Plan Assessment and plan: Critical care statement The high probability of a clinically significant ,sudden or life threatening deterioration of pulmonary cardiac renal systems required my full and direct attention intervention and personal management .The aggregate critical care time was 40 minutes.This time is in addition to time spent performing reported procedures but includes the following Data review and interpretation Patient assesment and monitoring of vital signs Documentation Medication orderes and management Advance Directives: Yes (Full code) VTE prophylaxis?: Chemical Plan of care discussed with patient/family: Yes - Patient Problems (1) Septic shock Current Visit: Yes Status: Acute Plan to address problem: Due to perforated viscous probably PUD given the previous CT abdomen in October 2017 IV fluids and IV abx and pressors Surgery consulted (2) DKA (diabetic ketoacidoses) Current Visit: Yes Status: Acute Qualifiers: Diabetes mellitus type: type 2 Plan to address problem: DKA protocol IV insulin initieated Electrolyte management (3) Perforated abdominal viscus Current Visit: Yes Status: Acute Plan to address problem: Going to surgery from ED Patient is unstable but needs emergent surgery. (4) Peptic ulcer disease Current Visit: Yes Status: Chronic Plan to address problem: IV protonix for now (5) IDDM (insulin dependent diabetes mellitus) Current Visit: Yes Status: Chronic Plan to address problem: Discharge on Insulin 70/30 bid or basal bolus regimen. Will defer to primary team (6) DVT prophylaxis Current Visit: Yes Status: Acute Plan to address problem: On Scd's and GI prophylaxis
[2019-02-19 05:46] LABS: Hematocrit 37.4 % (30.3-42.9); Mean Corpuscular HGB Conc 35 % (30-34); Mean Corpuscular Volume 94 fl (79-97); Platelet Count 284 K/mm3 (140-440); Red Cell Distribution Width 13.3 % (13.2-15.2)
[2019-02-19] MEDS ORDERED: CALCIUM GLUCONATE 2,000 MG in NACL 0.9% 100 ML IV ONE (05:50)
[2019-02-19 06:06] LABS: BUN/Creatinine Ratio 36; Blood Urea Nitrogen 18 mg/dL (7-17); Calcium 6.6 mg/dL (8.4-10.2); Hemolysis Index 5
[2019-02-19] MEDS: ZOSYN/NS 4.5GM/100ML 4.5 GM/100 ML VIAL IV SCH ×3 (06:16→21:37)
[2019-02-19 07:12] LABS: Band Neutrophils # (Manual) 2.9 K/mm3; Eosinophils % (Manual) 0 % (0.0-4.3); RBC Morphology Normal; Total Cells Counted 100
[2019-02-19 07:13] LABS: Platelet Estimate Consistent w Auto
[2019-02-19 09:45] LABS: BUN/Creatinine Ratio 30; Blood Urea Nitrogen 15 mg/dL (7-17); Hemolysis Index 28
[2019-02-19] MEDS ORDERED: LEVAQUIN 500MG/100ML 500 MG/100 ML BAG IV SCH (10:00)
[2019-02-19] MEDS: PEPCID IV SCH (10:15)
[2019-02-19] MEDS: LOVENOX SUB-Q SCH (10:15)
[2019-02-19] MEDS: SODIUM CHLORIDE FLUSH SYRINGE 10 ML IV SCH ×2 (10:16→21:37)
--- NOTE | 2019-02-19 10:28 | Progress Note ---
Assessment and Plan 43 yo F S/P exploratory laparotomy, peritoneal lavage, minnie patch, placement of drain, L IJ TLC, POD 1 1. perforated pyloric ulcer with gross peritonitis 2. septic shock 2/2 #1 3. DKA Plan: 1. neuro - prn pain control 2. CV - wean levophed as tolerated. 3. Resp - incentive spirometry, supplemental O2 4. GI - strict NPO, IVF, NGT to LCWS - DO NOT MANIPULATE, FLUSH, REMOVE, OR USE FOR MEDS. PPI BID. JEREMIAH drain - monitor output. Follow up pathology 5. - henry for strict I/Os 6. ID - continue abx IV, recommend ID consult. follow up OR cultures 7. Endo - insulin per DKA protocol 8. Musc - DVT ppx, Bedrest today 9. FEN - continue IVF, NPO. repeat BMP, Mg,Phos daily. replace lytes as needed D/W Dr. Flores Thank you, please call with questions. Subjective Date of service: 02/19/19 Narrative: Pt seen and examined. c/o abdominal pain. No n/v. Also states she is thirsty. No f/c Objective Vital Signs - 12hr 02/18/19 02/18/19 02/18/19 22:30 22:45 23:00 Temperature Pulse Rate 115 H 110 H 110 H Pulse Rate [ From Monitor] Respiratory 27 H 20 17 Rate Blood Pressure 102/66 98/59 107/75 O2 Sat by Pulse 100 Oximetry 02/18/19 02/18/19 02/18/19 23:15 23:30 23:45 Temperature Pulse Rate 111 H 112 H 112 H Pulse Rate [ From Monitor] Respiratory 17 19 19 Rate Blood Pressure 105/71 105/70 103/72 O2 Sat by Pulse Oximetry 02/19/19 02/19/19 02/19/19 00:00 00:15 00:20 Temperature 98.8 F Pulse Rate 112 H 112 H 112 H Pulse Rate [ 113 H From Monitor] Respiratory 17 15 18 Rate Blood Pressure 105/72 109/72 109/72 O2 Sat by Pulse 100 100 Oximetry 02/19/19 02/19/19 02/19/19 00:30 00:45 01:00 Temperature Pulse Rate 113 H 111 H 111 H Pulse Rate [ From Monitor] Respiratory 19 13 18 Rate Blood Pressure 95/62 86/52 93/57 O2 Sat by Pulse 100 100 Oximetry 02/19/19 02/19/19 02/19/19 01:15 01:30 01:45 Temperature Pulse Rate 114 H 117 H 115 H Pulse Rate [ From Monitor] Respiratory 14 26 H 19 Rate Blood Pressure 92/59 102/64 86/51 O2 Sat by Pulse Oximetry 02/19/19 02/19/19 02/19/19 02:00 02:15 02:30 Temperature Pulse Rate 117 H 116 H 118 H Pulse Rate [ From Monitor] Respiratory 22 23 22 Rate Blood Pressure 105/65 107/64 109/64 O2 Sat by Pulse Oximetry 02/19/19 02/19/19 02/19/19 02:45 03:00 03:15 Temperature Pulse Rate 125 H 116 H 117 H Pulse Rate [ From Monitor] Respiratory 28 H 22 24 Rate Blood Pressure 118/73 109/72 116/77 O2 Sat by Pulse 100 Oximetry 02/19/19 02/19/19 02/19/19 03:30 03:31 03:45 Temperature 98.7 F Pulse Rate 118 H 119 H Pulse Rate [ From Monitor] Respiratory 21 22 Rate Blood Pressure 116/78 118/74 O2 Sat by Pulse 100 100 Oximetry 02/19/19 02/19/19 02/19/19 04:00 04:15 04:30 Temperature Pulse Rate 118 H 118 H 119 H Pulse Rate [ 120 H From Monitor] Respiratory 23 24 24 Rate Blood Pressure 116/72 121/74 106/58 O2 Sat by Pulse 100 100 100 Oximetry 02/19/19 02/19/19 02/19/19 04:45 05:00 05:15 Temperature Pulse Rate 118 H 120 H 120 H Pulse Rate [ From Monitor] Respiratory 18 21 23 Rate Blood Pressure 98/60 99/63 102/62 O2 Sat by Pulse 100 100 Oximetry 02/19/19 02/19/19 02/19/19 05:30 05:45 06:00 Temperature Pulse Rate 118 H 119 H 120 H Pulse Rate [ From Monitor] Respiratory 18 17 20 Rate Blood Pressure 107/60 107/64 106/64 O2 Sat by Pulse Oximetry 02/19/19 02/19/19 02/19/19 06:15 06:30 06:45 Temperature Pulse Rate 120 H 117 H 117 H Pulse Rate [ From Monitor] Respiratory 21 22 18 Rate Blood Pressure 104/63 127/65 112/66 O2 Sat by Pulse Oximetry 02/19/19 02/19/19 02/19/19 07:00 07:15 07:30 Temperature Pulse Rate 117 H 120 H 120 H Pulse Rate [ From Monitor] Respiratory 16 25 H 23 Rate Blood Pressure 119/67 116/65 117/64 O2 Sat by Pulse 100 100 Oximetry 02/19/19 02/19/19 02/19/19 07:31 07:45 08:00 Temperature 98.5 F Pulse Rate 125 H 124 H Pulse Rate [ 121 H From Monitor] Respiratory 21 30 H Rate Blood Pressure 112/67 119/74 O2 Sat by Pulse 100 99 99 Oximetry 02/19/19 02/19/19 08:15 08:30 Temperature Pulse Rate 122 H 120 H Pulse Rate [ From Monitor] Respiratory 16 17 Rate Blood Pressure 116/70 111/70 O2 Sat by Pulse 100 Oximetry - General physical appearance Narrative Exam: Gen: Awake and alert. Confused. NAD ENT; NGT with bilious output CV: s1, S2+. tachy Resp; even and unlabored Abd: soft, distended, mildly tender. No r/r/g. Jeremiah drain serosang Ext: no c/c/e : henry with rei urine Output: NGT: 250cc/12h Henry: 800cc/12h - Labs 02/19/19 05:20 02/19/19 07:30 Diabetes panel 02/18/19 02/18/19 02/18/19 Range/Units 13:18 15:34 15:43 Sodium 135 L 133 L 134 L (137-145) mmol/L Potassium 5.2 H 4.1 D 4.3 (3.6-5.0) mmol/L Chloride 90.8 L 97.5 L 94.7 L (98-107) mmol/L Carbon Dioxide 16 L 14 L 18 L (22-30) mmol/L BUN 25 H 21 H 21 H (7-17) mg/dL Creatinine 1.0 0.9 0.9 (0.7-1.2) mg/dL Glucose 988 H* 822 H* 811 H* (65-100) mg/dL Hemoglobin A1c (4-6) % Calcium 8.7 8.5 8.6 (8.4-10.2) mg/dL AST 22 (5-40) units/L ALT 10 (7-56) units/L Alkaline Phosphatase 58 (35-129) units/L Total Protein 6.0 L (6.3-8.2) g/dL Albumin 3.5 L (3.9-5) g/dL 02/18/19 02/18/19 02/18/19 Range/Units 18:38 22:29 22:29 Sodium 139 141 (137-145) mmol/L Potassium 3.5 L 3.5 L (3.6-5.0) mmol/L Chloride 108.8 H 111.9 H (98-107) mmol/L Carbon Dioxide 16 L 17 L (22-30) mmol/L BUN 21 H 18 H (7-17) mg/dL Creatinine 0.8 0.6 L (0.7-1.2) mg/dL Glucose 575 H* 330 H (65-100) mg/dL Hemoglobin A1c 13.0 H (4-6) % Calcium 6.1 L D 6.4 L (8.4-10.2) mg/dL AST (5-40) units/L ALT (7-56) units/L Alkaline Phosphatase (35-129) units/L Total Protein (6.3-8.2) g/dL Albumin (3.9-5) g/dL 02/19/19 02/19/19 Range/Units 05:20 07:30 Sodium 143 141 (137-145) mmol/L Potassium 3.8 4.1 (3.6-5.0) mmol/L Chloride 115.4 H 115.2 H (98-107) mmol/L Carbon Dioxide 17 L 16 L (22-30) mmol/L BUN 18 H 15 (7-17) mg/dL Creatinine 0.5 L 0.5 L (0.7-1.2) mg/dL Glucose 120 H 129 H (65-100) mg/dL Hemoglobin A1c (4-6) % Calcium 6.6 L 7.0 L (8.4-10.2) mg/dL AST (5-40) units/L ALT (7-56) units/L Alkaline Phosphatase (35-129) units/L Total Protein (6.3-8.2) g/dL Albumin (3.9-5) g/dL Calcium panel 02/18/19 02/18/19 02/18/19 Range/Units 13:18 13:18 15:34 Calcium 8.7 8.5 (8.4-10.2) mg/dL Phosphorus 8.20 H (2.5-4.5) mg/dL Albumin 3.5 L (3.9-5) g/dL 02/18/19 02/18/19 02/18/19 Range/Units 15:43 18:38 22:29 Calcium 8.6 6.1 L D 6.4 L (8.4-10.2) mg/dL Phosphorus (2.5-4.5) mg/dL Albumin (3.9-5) g/dL 02/19/19 02/19/19 Range/Units 05:20 07:30 Calcium 6.6 L 7.0 L (8.4-10.2) mg/dL Phosphorus 2.20 L D (2.5-4.5) mg/dL Albumin (3.9-5) g/dL Pituitary panel 02/18/19 02/18/19 02/18/19 Range/Units 13:18 15:34 15:43 Sodium 135 L 133 L 134 L (137-145) mmol/L Potassium 5.2 H 4.1 D 4.3 (3.6-5.0) mmol/L Chloride 90.8 L 97.5 L 94.7 L (98-107) mmol/L Carbon Dioxide 16 L 14 L 18 L (22-30) mmol/L BUN 25 H 21 H 21 H (7-17) mg/dL Creatinine 1.0 0.9 0.9 (0.7-1.2) mg/dL Glucose 988 H* 822 H* 811 H* (65-100) mg/dL Calcium 8.7 8.5 8.6 (8.4-10.2) mg/dL 02/18/19 02/18/19 02/19/19 Range/Units 18:38 22:29 05:20 Sodium 139 141 143 (137-145) mmol/L Potassium 3.5 L 3.5 L 3.8 (3.6-5.0) mmol/L Chloride 108.8 H 111.9 H 115.4 H (98-107) mmol/L Carbon Dioxide 16 L 17 L 17 L (22-30) mmol/L BUN 21 H 18 H 18 H (7-17) mg/dL Creatinine 0.8 0.6 L 0.5 L (0.7-1.2) mg/dL Glucose 575 H* 330 H 120 H (65-100) mg/dL Calcium 6.1 L D 6.4 L 6.6 L (8.4-10.2) mg/dL 02/19/19 Range/Units 07:30 Sodium 141 (137-145) mmol/L Potassium 4.1 (3.6-5.0) mmol/L Chloride 115.2 H (98-107) mmol/L Carbon Dioxide 16 L (22-30) mmol/L BUN 15 (7-17) mg/dL Creatinine 0.5 L (0.7-1.2) mg/dL Glucose 129 H (65-100) mg/dL Calcium 7.0 L (8.4-10.2) mg/dL Adrenal panel 02/18/19 02/18/19 02/18/19 Range/Units 13:18 15:34 15:43 Sodium 135 L 133 L 134 L (137-145) mmol/L Potassium 5.2 H 4.1 D 4.3 (3.6-5.0) mmol/L Chloride 90.8 L 97.5 L 94.7 L (98-107) mmol/L Carbon Dioxide 16 L 14 L 18 L (22-30) mmol/L BUN 25 H 21 H 21 H (7-17) mg/dL Creatinine 1.0 0.9 0.9 (0.7-1.2) mg/dL Glucose 988 H* 822 H* 811 H* (65-100) mg/dL Calcium 8.7 8.5 8.6 (8.4-10.2) mg/dL Total Bilirubin 0.50 (0.1-1.2) mg/dL AST 22 (5-40) units/L ALT 10 (7-56) units/L Alkaline Phosphatase 58 (35-129) units/L Total Protein 6.0 L (6.3-8.2) g/dL Albumin 3.5 L (3.9-5) g/dL 02/18/19 02/18/19 02/19/19 Range/Units 18:38 22:29 05:20 Sodium 139 141 143 (137-145) mmol/L Potassium 3.5 L 3.5 L 3.8 (3.6-5.0) mmol/L Chloride 108.8 H 111.9 H 115.4 H (98-107) mmol/L Carbon Dioxide 16 L 17 L 17 L (22-30) mmol/L BUN 21 H 18 H 18 H (7-17) mg/dL Creatinine 0.8 0.6 L 0.5 L (0.7-1.2) mg/dL Glucose 575 H* 330 H 120 H (65-100) mg/dL Calcium 6.1 L D 6.4 L 6.6 L (8.4-10.2) mg/dL Total Bilirubin (0.1-1.2) mg/dL AST (5-40) units/L ALT (7-56) units/L Alkaline Phosphatase (35-129) units/L Total Protein (6.3-8.2) g/dL Albumin (3.9-5) g/dL 02/19/19 Range/Units 07:30 Sodium 141 (137-145) mmol/L Potassium 4.1 (3.6-5.0) mmol/L Chloride 115.2 H (98-107) mmol/L Carbon Dioxide 16 L (22-30) mmol/L BUN 15 (7-17) mg/dL Creatinine 0.5 L (0.7-1.2) mg/dL Glucose 129 H (65-100) mg/dL Calcium 7.0 L (8.4-10.2) mg/dL Total Bilirubin (0.1-1.2) mg/dL AST (5-40) units/L ALT (7-56) units/L Alkaline Phosphatase (35-129) units/L Total Protein (6.3-8.2) g/dL Albumin (3.9-5) g/dL
[2019-02-19] MEDS ORDERED: KPHOS 15 MMOL in NACL 0.9% 250ML 250 ML IV ONE (11:00)
[2019-02-19] MEDS ORDERED: MAGNESIUM SULFATE 1 GM in NACL 0.9% 50 ML IV ONE (11:00)
[2019-02-19] MEDS: PROTONIX IV SCH ×2 (11:22→21:36)
--- NOTE | 2019-02-19 12:04 | Consultation ---
History of Present Illness History of present illness: This is a 43 yo female w hx of DM admitted w elevated BS.She also had abd pain. She was found to have free air and went to the OR. She was found to have fperforated gastric ulcer with spilling of gastric content in abdomen She was extubated postop and now is on insulin drip in ICU She is awake Past History Past Medical History: diabetes Past Surgical History: Other (tubal ligation) Social history: no significant social history Family history: no significant family history Medications and Allergies Allergies Allergy/AdvReac Type Severity Reaction Status Date / Time No Known Allergies Allergy Unverified 03/12/13 12:14 Home Medications Medication Instructions Recorded Confirmed Last Taken Type Ciprofloxacin HCl [Cipro] 500 mg PO BID #14 tablet 10/09/17 02/19/19 Unknown Rx Dicyclomine [Bentyl] 20 mg PO QID #20 tablet 10/09/17 02/19/19 Unknown Rx HYDROcodone/APAP 5-325 [[place]ina 1 each PO Q6HR PRN #14 tablet 10/09/17 02/19/19 Unknown Rx 5/325] Ondansetron [Zofran Odt] 4 mg PO Q8HR #10 tab.rapdis 10/09/17 02/19/19 Unknown Rx metFORMIN [Glucophage] 500 mg PO BID 02/19/19 02/19/19 Unknown History Active Meds: Active Medications Acetaminophen (Tylenol) 650 mg PO Q4H PRN PRN Reason: Pain MILD(1-3)/Fever >100.5/MANRIQUE Dextrose (D50w (25gm) Syringe) 0 ml IV PRN PRN PRN Reason: Hypoglycemia Enoxaparin Sodium (Lovenox) 40 mg SUB-Q DAILY [facility] Last Admin: 02/19/19 10:15 Dose: 40 mg Documented by: Hydromorphone HCl (Dilaudid) 0.5 mg IV Q10MIN PRN PRN Reason: Pain , Severe (7-10) Stop: 02/19/19 19:42 Hydromorphone HCl (Dilaudid) 0.5 mg IV Q3H PRN PRN Reason: Pain , Severe (7-10) Insulin Human Regular 100 (units/ Sodium Chloride) 100 mls @ 1 mls/hr IV TITR [facility]; Protocol Last Titration: 02/19/19 06:29 Dose: 2 units/hr, 2 mls/hr Documented by: Levofloxacin/Dextrose (Levaquin 500mg/100ml) 500 mg in 100 mls @ 100 mls/hr IV Q24HR [facility]; Protocol Last Admin: 02/19/19 10:15 Dose: 100 mls/hr Documented by: Metronidazole (Flagyl 500 Mg/100 Ml) 500 mg in 100 mls @ 100 mls/hr IV Q8HR [facility]; Protocol Last Admin: 02/19/19 05:15 Dose: 100 mls/hr Documented by: Sodium Chloride (Nacl 0.9% 1000 Ml) 1,000 mls @ 125 mls/hr IV DIRECT [facility] Last Infusion: 02/19/19 01:11 Dose: 0 mls/hr Documented by: Norepinephrine (Levophed Drip 4 Mg/Ns 250 Ml) 4 mg in 250 mls @ 7.5 mls/hr IV TITR [facility]; Protocol Last Titration: 02/19/19 12:01 Dose: 12 mcg/min, 45 mls/hr Documented by: Potassium Chloride/Dextrose/Sod Cl (D5w/0.45% Nacl/Kcl 20 Meq) 20 meq in 1,000 mls @ 125 mls/hr IV DIRECT [facility] Last Admin: 02/19/19 11:23 Dose: 125 mls/hr Documented by: Piperacillin Sod/Tazobactam Sod (Zosyn/Ns 4.5gm/100ml) 4.5 gm in 100 mls @ 200 mls/hr IV Q8HR [facility]; Protocol Last Admin: 02/19/19 06:16 Dose: 200 mls/hr Documented by: Potassium Phosphate 15 mmol/ (Sodium Chloride) 255 mls @ 125 mls/hr IV ONCE ONE Stop: 02/19/19 13:02 Last Admin: 02/19/19 11:22 Dose: 125 mls/hr Documented by: Metoclopramide HCl (Reglan) 10 mg IV Q6H PRN PRN Reason: Nausea And Vomiting Morphine Sulfate (Morphine) 2 mg IV Q4H PRN PRN Reason: Pain, Moderate (4-6) Last Admin: 02/19/19 05:14 Dose: 2 mg Documented by: Morphine Sulfate (Morphine) 4 mg IV Q4H PRN PRN Reason: Pain , Severe (7-10) Last Admin: 02/19/19 07:54 Dose: 4 mg Documented by: Ondansetron HCl (Zofran) 4 mg IV Q3H PRN PRN Reason: Nausea And Vomiting Last Admin: 02/18/19 22:51 Dose: 4 mg Documented by: Pantoprazole Sodium (Protonix) 40 mg IV BID [facility] Last Admin: 02/19/19 11:22 Dose: 40 mg Documented by: Sodium Chloride (Sodium Chloride Flush Syringe 10 Ml) 10 ml IV BID [facility] Last Admin: 02/19/19 10:16 Dose: 10 ml Documented by: Sodium Chloride (Sodium Chloride Flush Syringe 10 Ml) 10 ml IV PRN PRN PRN Reason: LINE FLUSH Review of Systems Constitutional: weakness, malaise Gastrointestinal: abdominal pain, nausea Neurological: weakness Physical Examination Vital signs: Vital Signs Temp 98.1 F 02/18/19 12:13 General appearance: no acute distress, alert Eyes: non-icteric ENT: oropharynx moist Neck: supple Effort: normal Ascultation: Bilateral: clear Cardiovascular: regular rate and rhythm Gastrointestinal: hypoactive bowel sounds, non-distended Integumentary: normal Extremities: no cyanosis Musculoskeletal: no deformities non-focal exam mood appropriate Results - Laboratory Findings CBC and BMP: 02/19/19 05:20 02/19/19 07:30 PT/INR, D-dimer PT 18.0 Sec. (12.2-14.9) H 02/18/19 18:00 INR 1.53 (0.87-1.13) H 02/18/19 18:00 Abnormal lab findings: Abnormal Labs 02/18/19 02/18/19 02/18/19 12:36 13:18 13:18 Hct 43.6 H MCV 99 H MCH MCHC Lymph % (Auto) 5.3 L Lymph # 0.2 L Seg Neutrophils % 89.0 H Lymphocytes % (Manual) Lymphocytes # (Manual) PT INR VBG pH Sodium 135 L Potassium 5.2 H Chloride 90.8 L Carbon Dioxide 16 L BUN 25 H Creatinine Glucose 988 H* POC Glucose > 500 H Hemoglobin A1c Lactic Acid Calcium Phosphorus Magnesium Total Protein 6.0 L Albumin 3.5 L Urine WBC (Auto) 02/18/19 02/18/19 02/18/19 13:18 13:18 15:34 Hct MCV MCH MCHC Lymph % (Auto) Lymph # Seg Neutrophils % Lymphocytes % (Manual) Lymphocytes # (Manual) PT INR VBG pH 7.319 L Sodium 133 L Potassium Chloride 97.5 L Carbon Dioxide 14 L BUN 21 H Creatinine Glucose 822 H* POC Glucose Hemoglobin A1c Lactic Acid Calcium Phosphorus 8.20 H Magnesium Total Protein Albumin Urine WBC (Auto) 02/18/19 02/18/19 02/18/19 15:43 15:43 15:54 Hct MCV MCH MCHC Lymph % (Auto) Lymph # Seg Neutrophils % Lymphocytes % (Manual) Lymphocytes # (Manual) PT INR VBG pH Sodium 134 L Potassium Chloride 94.7 L Carbon Dioxide 18 L BUN 21 H Creatinine Glucose 811 H* POC Glucose Hemoglobin A1c Lactic Acid 4.30 H* Calcium Phosphorus Magnesium Total Protein Albumin Urine WBC (Auto) 24.0 H 02/18/19 02/18/19 02/18/19 16:52 18:00 18:32 Hct MCV MCH MCHC Lymph % (Auto) Lymph # Seg Neutrophils % Lymphocytes % (Manual) Lymphocytes # (Manual) PT 18.0 H INR 1.53 H VBG pH Sodium Potassium Chloride Carbon Dioxide BUN Creatinine Glucose POC Glucose > 500 H > 500 H Hemoglobin A1c Lactic Acid Calcium Phosphorus Magnesium Total Protein Albumin Urine WBC (Auto) 02/18/19 02/18/19 02/18/19 18:38 19:47 21:05 Hct MCV MCH MCHC Lymph % (Auto) Lymph # Seg Neutrophils % Lymphocytes % (Manual) Lymphocytes # (Manual) PT INR VBG pH Sodium Potassium 3.5 L Chloride 108.8 H Carbon Dioxide 16 L BUN 21 H Creatinine Glucose 575 H* POC Glucose > 500 H 424 H Hemoglobin A1c Lactic Acid Calcium 6.1 L D Phosphorus Magnesium Total Protein Albumin Urine WBC (Auto) 02/18/19 02/18/19 02/18/19 22:09 22:29 22:29 Hct MCV MCH MCHC Lymph % (Auto) Lymph # Seg Neutrophils % Lymphocytes % (Manual) Lymphocytes # (Manual) PT INR VBG pH Sodium Potassium 3.5 L Chloride 111.9 H Carbon Dioxide 17 L BUN 18 H Creatinine 0.6 L Glucose 330 H POC Glucose 398 H Hemoglobin A1c 13.0 H Lactic Acid Calcium 6.4 L Phosphorus Magnesium Total Protein Albumin Urine WBC (Auto) 02/18/19 02/18/19 02/19/19 23:18 23:55 01:05 Hct MCV MCH MCHC Lymph % (Auto) Lymph # Seg Neutrophils % Lymphocytes % (Manual) Lymphocytes # (Manual) PT INR VBG pH Sodium Potassium Chloride Carbon Dioxide BUN Creatinine Glucose POC Glucose 361 H 314 H 238 H Hemoglobin A1c Lactic Acid Calcium Phosphorus Magnesium Total Protein Albumin Urine WBC (Auto) 02/19/19 02/19/19 02/19/19 02:09 03:18 04:40 Hct MCV MCH MCHC Lymph % (Auto) Lymph # Seg Neutrophils % Lymphocytes % (Manual) Lymphocytes # (Manual) PT INR VBG pH Sodium Potassium Chloride Carbon Dioxide BUN Creatinine Glucose POC Glucose 301 H 222 H 207 H Hemoglobin A1c Lactic Acid Calcium Phosphorus Magnesium Total Protein Albumin Urine WBC (Auto) 02/19/19 02/19/19 02/19/19 05:20 05:20 05:22 Hct MCV MCH 33 H MCHC 35 H Lymph % (Auto) Lymph # Seg Neutrophils % Lymphocytes % (Manual) 5.0 L Lymphocytes # (Manual) 0.4 L PT INR VBG pH Sodium Potassium Chloride 115.4 H Carbon Dioxide 17 L BUN 18 H Creatinine 0.5 L Glucose 120 H POC Glucose 176 H Hemoglobin A1c Lactic Acid Calcium 6.6 L Phosphorus 2.20 L D Magnesium 1.30 L Total Protein Albumin Urine WBC (Auto) 02/19/19 02/19/19 02/19/19 06:35 07:30 08:16 Hct MCV MCH MCHC Lymph % (Auto) Lymph # Seg Neutrophils % Lymphocytes % (Manual) Lymphocytes # (Manual) PT INR VBG pH Sodium Potassium Chloride 115.2 H Carbon Dioxide 16 L BUN Creatinine 0.5 L Glucose 129 H POC Glucose 131 H 138 H Hemoglobin A1c Lactic Acid Calcium 7.0 L Phosphorus Magnesium Total Protein Albumin Urine WBC (Auto) 02/19/19 02/19/19 02/19/19 09:22 10:04 11:11 Hct MCV MCH MCHC Lymph % (Auto) Lymph # Seg Neutrophils % Lymphocytes % (Manual) Lymphocytes # (Manual) PT INR VBG pH Sodium Potassium Chloride Carbon Dioxide BUN Creatinine Glucose POC Glucose 118 H 166 H 118 H Hemoglobin A1c Lactic Acid Calcium Phosphorus Magnesium Total Protein Albumin Urine WBC (Auto) - Diagnostic Findings Chest x-ray: report reviewed, image reviewed (NAF) Assessment and Plan - Patient Problems (1) DKA (diabetic ketoacidoses) Current Visit: Yes Status: Acute Qualifiers: Diabetes mellitus type: type 2 (2) Inflammation of small intestine Current Visit: Yes Status: Acute (3) Septic shock Current Visit: Yes Status: Acute (4) IDDM (insulin dependent diabetes mellitus) Current Visit: Yes Status: Chronic (5) Peptic ulcer disease Current Visit: Yes Status: Chronic
[2019-02-19] MEDS ORDERED: D50W (25GM) Syringe IV PRN (14:47)
--- NOTE | 2019-02-19 14:51 | Progress Note ---
Assessment and Plan Assessment and plan: 43F who pw abdominal pain found to have perforated viscus Septic shock Due to perforated viscous probably PUD sp ex lap, GS input appreciated DKA (diabetic ketoacidoses), type 2 dm -now resolved, switched to subq Perforated abdominal viscus sp ex lap, keep npo per gs Peptic ulcer disease IV protonix for now DVT prophylaxis On Scd's and GI prophylaxis The high probability of a clinically significant, sudden or life threatening det erioration of the [endocrine and GI] system(s) required my full and direct attention, intervention and personal management. The aggregate critical care time was [33] minutes. This time is in addition to time spent performing reported procedures but includes the following: [] Data Review and interpretation [] Patient assessment and monitoring of vital signs [] Documentation [] Medication orders and management Hospitalist Physical - Constitutional Vitals: Temp Pulse Resp BP Pulse Ox 98 F 120 H 28 H 111/63 100 02/19/19 12:00 02/19/19 14:30 02/19/19 14:30 02/19/19 14:30 02/19/19 14:30 General appearance: Present: no acute distress, well-nourished Results - Labs CBC & Chem 7: 02/19/19 05:20 02/19/19 07:30 Labs: Laboratory Last Values WBC 7.2 K/mm3 (4.5-11.0) 02/19/19 05:20 RBC 4.00 M/mm3 (3.65-5.03) 02/19/19 05:20 Hgb 13.0 gm/dl (10.1-14.3) 02/19/19 05:20 Hct 37.4 % (30.3-42.9) D 02/19/19 05:20 MCV 94 fl (79-97) 02/19/19 05:20 MCH 33 pg (28-32) H 02/19/19 05:20 MCHC 35 % (30-34) H 02/19/19 05:20 RDW 13.3 % (13.2-15.2) 02/19/19 05:20 Plt Count 284 K/mm3 (140-440) 02/19/19 05:20 Lymph % (Auto) 5.3 % (13.4-35.0) L 02/18/19 13:18 [place] % (Auto) 5.6 % (0.0-7.3) 02/18/19 13:18 Eos % (Auto) 0.0 % (0.0-4.3) 02/18/19 13:18 Baso % (Auto) 0.1 % (0.0-1.8) 02/18/19 13:18 Lymph # 0.2 K/mm3 (1.2-5.4) L 02/18/19 13:18 [place] # 0.3 K/mm3 (0.0-0.8) 02/18/19 13:18 Eos # 0.0 K/mm3 (0.0-0.4) 02/18/19 13:18 Baso # 0.0 K/mm3 (0.0-0.1) 02/18/19 13:18 Add Manual Diff Complete 02/19/19 05:20 Total Counted 100 02/19/19 05:20 Seg Neutrophils % 89.0 % (40.0-70.0) H 02/18/19 13:18 Seg Neuts % (Manual) 49.0 % (40.0-70.0) 02/19/19 05:20 40.0 % 02/19/19 05:20 5.0 % (13.4-35.0) L 02/19/19 05:20 Reactive Lymphs % (Man) 0 % 02/19/19 05:20 5.0 % (0.0-7.3) 02/19/19 05:20 0 % (0.0-4.3) 02/19/19 05:20 1.0 % (0.0-1.8) 02/19/19 05:20 0 % 02/19/19 05:20 0 % 02/19/19 05:20 0 % 02/19/19 05:20 0 % 02/19/19 05:20 Nucleated RBC % Not Reportable 02/19/19 05:20 Seg Neutrophils # 4.2 K/mm3 (1.8-7.7) 02/18/19 13:18 Seg Neutrophils # Man 3.5 K/mm3 (1.8-7.7) 02/19/19 05:20 Band Neutrophils # 2.9 K/mm3 02/19/19 05:20 0.4 K/mm3 (1.2-5.4) L 02/19/19 05:20 Abs React Lymphs (Man) 0.0 K/mm3 02/19/19 05:20 0.4 K/mm3 (0.0-0.8) 02/19/19 05:20 0.0 K/mm3 (0.0-0.4) 02/19/19 05:20 0.1 K/mm3 (0.0-0.1) 02/19/19 05:20 0.0 K/mm3 02/19/19 05:20 0.0 K/mm3 02/19/19 05:20 0.0 K/mm3 02/19/19 05:20 Blast Cells # 0.0 K/mm3 02/19/19 05:20 WBC Morphology Not Reportable 02/19/19 05:20 Hypersegmented Neuts Not Reportable 02/19/19 05:20 Hyposegmented Neuts Not Reportable 02/19/19 05:20 Hypogranular Neuts Not Reportable 02/19/19 05:20 Not Reportable 02/19/19 05:20 Not Reportable 02/19/19 05:20 Not Reportable 02/19/19 05:20 Not Reportable 02/19/19 05:20 Not Reportable 02/19/19 05:20 Not Reportable 02/19/19 05:20 Consistent w auto 02/19/19 05:20 Not Reportable 02/19/19 05:20 Plt Clumps, EDTA Not Reportable 02/19/19 05:20 Not Reportable 02/19/19 05:20 Not Reportable 02/19/19 05:20 Not Reportable 02/19/19 05:20 Plt Morphology Comment Not Reportable 02/19/19 05:20 RBC Morphology Normal 02/19/19 05:20 Dimorphic RBCs Not Reportable 02/19/19 05:20 Not Reportable 02/19/19 05:20 Not Reportable 02/19/19 05:20 Not Reportable 02/19/19 05:20 Not Reportable 02/19/19 05:20 Not Reportable 02/19/19 05:20 Not Reportable 02/19/19 05:20 Not Reportable 02/19/19 05:20 Not Reportable 02/19/19 05:20 Not Reportable 02/19/19 05:20 Not Reportable 02/19/19 05:20 Not Reportable 02/19/19 05:20 Not Reportable 02/19/19 05:20 Not Reportable 02/19/19 05:20 Not Reportable 02/19/19 05:20 Not Reportable 02/19/19 05:20 Not Reportable 02/19/19 05:20 Not Reportable 02/19/19 05:20 Not Reportable 02/19/19 05:20 Not Reportable 02/19/19 05:20 Acanthocytes (Spur) Not Reportable 02/19/19 05:20 Rouleaux Not Reportable 02/19/19 05:20 Not Reportable 02/19/19 05:20 Not Reportable 02/19/19 05:20 Not Reportable 02/19/19 05:20 Not Reportable 02/19/19 05:20 Hem Pathologist Commnt No 02/19/19 05:20 PT 18.0 Sec. (12.2-14.9) H 02/18/19 18:00 INR 1.53 (0.87-1.13) H 02/18/19 18:00 APTT 30.1 Sec. (24.2-36.6) 02/18/19 18:00 VBG pH 7.319 (7.320-7.420) L 02/18/19 13:18 Sodium 141 mmol/L (137-145) 02/19/19 07:30 Potassium 4.1 mmol/L (3.6-5.0) 02/19/19 07:30 Chloride 115.2 mmol/L (98-107) H 02/19/19 07:30 Carbon Dioxide 16 mmol/L (22-30) L 02/19/19 07:30 14 mmol/L 02/19/19 07:30 BUN 15 mg/dL (7-17) 02/19/19 07:30 0.5 mg/dL (0.7-1.2) L 02/19/19 07:30 Estimated GFR > 60 ml/min 02/19/19 07:30 30 % 02/19/19 07:30 Glucose 129 mg/dL (65-100) H 02/19/19 07:30 POC Glucose 123 (70-105) H 02/19/19 14:02 13.0 % (4-6) H 02/18/19 22:29 Lactic Acid 1.20 mmol/L (0.7-2.0) 02/19/19 05:20 Calcium 7.0 mg/dL (8.4-10.2) L 02/19/19 07:30 Phosphorus 2.20 mg/dL (2.5-4.5) L D 02/19/19 05:20 Magnesium 1.30 mg/dL (1.7-2.3) L 02/19/19 05:20 0.50 mg/dL (0.1-1.2) 02/18/19 13:18 AST 22 units/L (5-40) 02/18/19 13:18 ALT 10 units/L (7-56) 02/18/19 13:18 58 units/L (35-129) 02/18/19 13:18 6.0 g/dL (6.3-8.2) L 02/18/19 13:18 3.5 g/dL (3.9-5) L 02/18/19 13:18 1.4 % 02/18/19 13:18 32 units/L (13-60) 02/18/19 13:18 HCG, Qual Negative (Negative) 02/18/19 13:18 Yellow (Yellow) 02/18/19 15:54 Clear (Clear) 02/18/19 15:54 5.0 (5.0-7.0) 02/18/19 15:54 Ur Specific [place] 1.028 (1.003-1.030) 02/18/19 15:54 30 mg/dl mg/dL (Negative) 02/18/19 15:54 >=500 mg/dL (Negative) 02/18/19 15:54 20 mg/dL (Negative) 02/18/19 15:54 Lg (Negative) 02/18/19 15:54 Neg (Negative) 02/18/19 15:54 Neg (Negative) 02/18/19 15:54 < 2.0 mg/dL (<2.0) 02/18/19 15:54 Ur Leukocyte Esterase Neg (Negative) 02/18/19 15:54 24.0 /HPF (0.0-6.0) H 02/18/19 15:54 6.0 /HPF (0.0-6.0) 02/18/19 15:54 U Epithel Cells (Auto) 1.0 /HPF (0-13.0) 02/18/19 15:54 Few /HPF 02/18/19 15:54 Blood Type A POSITIVE 02/18/19 18:00 Antibody Screen Negative 02/18/19 18:00 Active Medications - Current Medications Current Medications: Generic Name Dose Route Start Last Admin Trade Name Freq PRN Reason Stop Dose Admin Acetaminophen 650 mg 02/18/19 21:07 Tylenol PO Q4H PRN Pain MILD(1-3)/Fever >100.5/MANRIQUE Dextrose 0 ml 02/18/19 12:51 D50w (25gm) Syringe IV PRN PRN Hypoglycemia Dextrose 50 ml 02/19/19 14:47 D50w (25gm) Syringe IV PRN PRN Hypoglycemia Enoxaparin Sodium 40 mg 02/19/19 10:00 02/19/19 10:15 Lovenox SUB-Q 40 mg DAILY ALDEN Administration Hydromorphone HCl 0.5 mg 02/18/19 19:43 Dilaudid IV 02/19/19 19:42 Q10MIN PRN Pain , Severe (7-10) Hydromorphone HCl 0.5 mg 02/19/19 05:06 Dilaudid IV Q3H PRN Pain , Severe (7-10) Insulin Human Regular 100 100 mls @ 1 mls/hr 02/18/19 14:00 02/19/19 13:56 units/ Sodium Chloride IV 1.5 units/hr TITR [facility] 1.5 mls/hr Titration Protocol 1 UNITS/HR Levofloxacin/Dextrose 500 mg in 100 mls @ 100 mls/hr 02/19/19 10:00 02/19/19 10:15 Levaquin 500mg/100ml IV 100 mls/hr Q24HR [facility] Administration Protocol Metronidazole 500 mg in 100 mls @ 100 mls/hr 02/18/19 22:00 02/19/19 13:14 Flagyl 500 Mg/100 Ml IV 100 mls/hr Q8HR [facility] Administration Protocol Sodium Chloride 1,000 mls @ 50 mls/hr 02/18/19 18:00 02/19/19 01:11 Nacl 0.9% 1000 Ml IV 0 mls/hr DIRECT [facility] Infusion Norepinephrine 4 mg in 250 mls @ 7.5 mls/hr 02/18/19 18:40 02/19/19 14:29 Levophed Drip 4 Mg/Ns 250 Ml IV 8 mcg/min TITR ALDNE 30 mls/hr Titration Protocol 2 MCG/MIN Piperacillin Sod/Tazobactam Sod 4.5 gm in 100 mls @ 200 mls/hr 02/19/19 05:30 02/19/19 13:14 Zosyn/Ns 4.5gm/100ml IV 200 mls/hr Q8HR [facility] Administration Protocol Sodium Chloride 1,000 mls @ 125 mls/hr 02/19/19 15:00 Nacl 0.45% 1000 Ml IV DIRECT [facility] Insulin Glargine 10 units 02/19/19 15:00 Lantus SUB-Q DAILY [facility] Insulin Human Regular 0 units 02/19/19 15:00 Humulin R SUB-Q Q6HR [facility] Protocol Metoclopramide HCl 10 mg 02/18/19 21:07 Reglan IV Q6H PRN Nausea And Vomiting Morphine Sulfate 2 mg 02/18/19 17:33 02/19/19 05:14 Morphine IV 2 mg Q4H PRN Administration Pain, Moderate (4-6) Morphine Sulfate 4 mg 02/18/19 19:37 02/19/19 13:30 Morphine IV 4 mg Q4H PRN Administration Pain , Severe (7-10) Ondansetron HCl 4 mg 02/18/19 21:07 02/18/19 22:51 Zofran IV 4 mg Q3H PRN Administration Nausea And Vomiting Pantoprazole Sodium 40 mg 02/19/19 11:00 02/19/19 11:22 Protonix IV 40 mg BID [facility] Administration Sodium Chloride 10 ml 02/19/19 10:00 02/19/19 10:16 Sodium Chloride Flush Syringe 10 Ml IV 10 ml BID [facility] Administration Sodium Chloride 10 ml 02/19/19 05:06 Sodium Chloride Flush Syringe 10 Ml IV PRN PRN LINE FLUSH
[2019-02-19] MEDS: DILAUDID IV PRN ×2 (14:52→20:58)
[2019-02-19] MEDS: LANTUS SUB-Q SCH (15:11)
[2019-02-19] MEDS: HumuLIN R SUB-Q SCH ×3 (15:13→23:55)
[2019-02-19] MEDS: NACL 0.45% 1000 ML 1,000 ML IV SCH ×2 (15:15→23:55)
--- NOTE | 2019-02-19 15:30 | Consultation ---
History of Present Illness - Reason for Consult Consult date: 02/19/19 - History of Present Illness 43 yo F PMHx T2DM and PUD admitted with abdominal pain for the past 4 days. It was initially an epigastric pain before becoming diffuse across the abdomen. She also complained of nausea and vomiting. She otherwise denied fevers, sweats, chills. It is noted she was found lethargic and on the floor by her family. On admission she was found to have a small bowel perforation and was emergently t aken to the OR 02/18 for Ex-lap, lavage, and patch. During surgery she was found to have a perforated pyloric ulcer. She was seen in October in the ER with abdominal pain as well and imaging revealed duodenitis and esophagitis at that time. Afebrile since admission with a normal white count. She has been tachycardic and tachypneic, and was extubated post-operatively. She is currently receiving le vofloxacin, metronidazole, and pip-dallas. Surgical, blood, and urine cultures from 02/18 are all pending. The surgical cultures have GPC in pairs on the gram stain. CXR without abnormality. CTAP with free air, inflammatory small bowel, and a possible cirrhotic liver. Review of Systems: Bold if positive, otherwise negative General: fevers, chills, rigors HEENT: visual disturbance, diplopia, eye pain Respiratory: cough, sputum, hemoptysis, shortness of breath Cardiovascular: chest pain, syncope Gastrointestinal: nausea, vomiting, diarrhea, abdominal pain Genitourinary: dysuria, hematuria, flank pain Musculoskeletal: neck pain, back pain, joint pain, edema Neurologic: headaches, seizures Hematologic: easy bruising or bleeding Endocrine: night sweats, acute weight loss Skin: rash, jaundice, redness Psychiatric: suicidal, homicidal ideation Past History Past Medical History: diabetes Past Surgical History: Other (tubal ligation) Social history: no significant social history Family history: no significant family history Medications and Allergies Allergies Allergy/AdvReac Type Severity Reaction Status Date / Time No Known Allergies Allergy Unverified 03/12/13 12:14 Home Medications Medication Instructions Recorded Confirmed Last Taken Type Ciprofloxacin HCl [Cipro] 500 mg PO BID #14 tablet 10/09/17 02/19/19 Unknown Rx Dicyclomine [Bentyl] 20 mg PO QID #20 tablet 10/09/17 02/19/19 Unknown Rx HYDROcodone/APAP 5-325 [[place] 1 each PO Q6HR PRN #14 tablet 10/09/17 02/19/19 Unknown Rx 5/325] Ondansetron [Zofran Odt] 4 mg PO Q8HR #10 tab.rapdis 10/09/17 02/19/19 Unknown Rx metFORMIN [Glucophage] 500 mg PO BID 02/19/19 02/19/19 Unknown History Active Meds: Active Medications Acetaminophen (Tylenol) 650 mg PO Q4H PRN PRN Reason: Pain MILD(1-3)/Fever >100.5/MANRIQUE Dextrose (D50w (25gm) Syringe) 50 ml IV PRN PRN PRN Reason: Hypoglycemia Enoxaparin Sodium (Lovenox) 40 mg SUB-Q DAILY [place] Last Admin: 02/19/19 10:15 Dose: 40 mg Documented by: Hydromorphone HCl (Dilaudid) 0.5 mg IV Q10MIN PRN PRN Reason: Pain , Severe (7-10) Stop: 02/19/19 19:42 Hydromorphone HCl (Dilaudid) 0.5 mg IV Q3H PRN PRN Reason: Pain , Severe (7-10) Last Admin: 02/19/19 14:52 Dose: 0.5 mg Documented by: Insulin Human Regular 100 (units/ Sodium Chloride) 100 mls @ 1 mls/hr IV TITR ALDEN; Protocol Last Titration: 02/19/19 15:15 Dose: 0 units/hr, 0 mls/hr Documented by: Levofloxacin/Dextrose (Levaquin 500mg/100ml) 500 mg in 100 mls @ 100 mls/hr IV Q24HR ALDEN; Protocol Last Admin: 02/19/19 10:15 Dose: 100 mls/hr Documented by: Metronidazole (Flagyl 500 Mg/100 Ml) 500 mg in 100 mls @ 100 mls/hr IV Q8HR [facility]; Protocol Last Admin: 02/19/19 13:14 Dose: 100 mls/hr Documented by: Norepinephrine (Levophed Drip 4 Mg/Ns 250 Ml) 4 mg in 250 mls @ 7.5 mls/hr IV TITR ALDEN; Protocol Last Titration: 02/19/19 14:29 Dose: 8 mcg/min, 30 mls/hr Documented by: Piperacillin Sod/Tazobactam Sod (Zosyn/Ns 4.5gm/100ml) 4.5 gm in 100 mls @ 200 mls/hr IV Q8HR ALDEN; Protocol Last Admin: 02/19/19 13:14 Dose: 200 mls/hr Documented by: Sodium Chloride (Nacl 0.45% 1000 Ml) 1,000 mls @ 125 mls/hr IV DIRECT AL[place] Last Admin: 02/19/19 15:15 Dose: 125 mls/hr Documented by: Insulin Glargine (Lantus) 10 units SUB-Q DAILY ALDEN Last Admin: 02/19/19 15:11 Dose: 10 units Documented by: Insulin Human Regular (Humulin R) 0 units SUB-Q Q6HR [facility]; Protocol Last Admin: 02/19/19 15:13 Dose: Not Given Documented by: Metoclopramide HCl (Reglan) 10 mg IV Q6H PRN PRN Reason: Nausea And Vomiting Morphine Sulfate (Morphine) 2 mg IV Q4H PRN PRN Reason: Pain, Moderate (4-6) Last Admin: 02/19/19 05:14 Dose: 2 mg Documented by: Morphine Sulfate (Morphine) 4 mg IV Q4H PRN PRN Reason: Pain , Severe (7-10) Last Admin: 02/19/19 13:30 Dose: 4 mg Documented by: Ondansetron HCl (Zofran) 4 mg IV Q3H PRN PRN Reason: Nausea And Vomiting Last Admin: 02/18/19 22:51 Dose: 4 mg Documented by: Pantoprazole Sodium (Protonix) 40 mg IV BID [facility] Last Admin: 02/19/19 11:22 Dose: 40 mg Documented by: Sodium Chloride (Sodium Chloride Flush Syringe 10 Ml) 10 ml IV BID [facility] Last Admin: 02/19/19 10:16 Dose: 10 ml Documented by: Sodium Chloride (Sodium Chloride Flush Syringe 10 Ml) 10 ml IV PRN PRN PRN Reason: LINE FLUSH Physical Examination - Physical Exam Narrative exam: Physical Exam: Constitutional: Alert, cooperative. No acute distress Head, Ears, Nose: Normocephalic, atraumatic. External ears, nose normal Eyes: Conjunctivae/corneas clear. No icterus. No ptosis. Neck: Supple, no meningeal signs Oral: dentition fair, no thrush Cardiovascular: S1, S2 normal. Respiratory: Good air entry, clear to auscultation bilaterally GI: Soft, tender; bowel sounds normal. No peritoneal signs. 1x drain in place, serous fluid draining Musculoskeletal: No pedal edema, no cyanosis. Skin: No rash or abscess Hem/Lymphatic: No palpable cervical or supraclavicular nodes. No lymphangitis Psych: Mood ok. Affect normal Neurological: Awake, alert, oriented. No gross abnormality - Constitutional Vitals: Vital Signs Temp Pulse Resp BP Pulse Ox 98 F 120 H 17 104/59 100 02/19/19 12:00 02/19/19 15:00 02/19/19 15:00 02/19/19 15:00 02/19/19 14:30 Temperature -Last 24 Hours Temperature 98 F Temperature 98.5 F Temperature 98.7 F Temperature 98.8 F Temperature 97.7 F Temperature 97.2 F Results - Labs CBC & Chem 7: 02/19/19 05:20 02/19/19 07:30 Labs: Abnormal lab results 02/18/19 02/18/19 02/18/19 Range/Units 15:34 15:43 15:43 MCH (28-32) pg MCHC (30-34) % Lymphocytes % (Manual) (13.4-35.0) % Lymphocytes # (Manual) (1.2-5.4) K/mm3 PT (12.2-14.9) Sec. INR (0.87-1.13) Sodium 133 L 134 L (137-145) mmol/L Potassium (3.6-5.0) mmol/L Chloride 97.5 L 94.7 L (98-107) mmol/L Carbon Dioxide 14 L 18 L (22-30) mmol/L BUN 21 H 21 H (7-17) mg/dL Creatinine (0.7-1.2) mg/dL Glucose 822 H* 811 H* (65-100) mg/dL POC Glucose (70-105) Hemoglobin A1c (4-6) % Lactic Acid 4.30 H* (0.7-2.0) mmol/L Calcium (8.4-10.2) mg/dL Phosphorus (2.5-4.5) mg/dL Magnesium (1.7-2.3) mg/dL Urine WBC (Auto) (0.0-6.0) /HPF 02/18/19 02/18/19 02/18/19 Range/Units 15:54 16:52 18:00 MCH (28-32) pg MCHC (30-34) % Lymphocytes % (Manual) (13.4-35.0) % Lymphocytes # (Manual) (1.2-5.4) K/mm3 PT 18.0 H (12.2-14.9) Sec. INR 1.53 H (0.87-1.13) Sodium (137-145) mmol/L Potassium (3.6-5.0) mmol/L Chloride (98-107) mmol/L Carbon Dioxide (22-30) mmol/L BUN (7-17) mg/dL Creatinine (0.7-1.2) mg/dL Glucose (65-100) mg/dL POC Glucose > 500 H (70-105) Hemoglobin A1c (4-6) % Lactic Acid (0.7-2.0) mmol/L Calcium (8.4-10.2) mg/dL Phosphorus (2.5-4.5) mg/dL Magnesium (1.7-2.3) mg/dL Urine WBC (Auto) 24.0 H (0.0-6.0) /HPF 02/18/19 02/18/19 02/18/19 Range/Units 18:32 18:38 19:47 MCH (28-32) pg MCHC (30-34) % Lymphocytes % (Manual) (13.4-35.0) % Lymphocytes # (Manual) (1.2-5.4) K/mm3 PT (12.2-14.9) Sec. INR (0.87-1.13) Sodium (137-145) mmol/L Potassium 3.5 L (3.6-5.0) mmol/L Chloride 108.8 H (98-107) mmol/L Carbon Dioxide 16 L (22-30) mmol/L BUN 21 H (7-17) mg/dL Creatinine (0.7-1.2) mg/dL Glucose 575 H* (65-100) mg/dL POC Glucose > 500 H > 500 H (70-105) Hemoglobin A1c (4-6) % Lactic Acid (0.7-2.0) mmol/L Calcium 6.1 L D (8.4-10.2) mg/dL Phosphorus (2.5-4.5) mg/dL Magnesium (1.7-2.3) mg/dL Urine WBC (Auto) (0.0-6.0) /HPF 02/18/19 02/18/19 02/18/19 Range/Units 21:05 22:09 22:29 MCH (28-32) pg MCHC (30-34) % Lymphocytes % (Manual) (13.4-35.0) % Lymphocytes # (Manual) (1.2-5.4) K/mm3 PT (12.2-14.9) Sec. INR (0.87-1.13) Sodium (137-145) mmol/L Potassium 3.5 L (3.6-5.0) mmol/L Chloride 111.9 H (98-107) mmol/L Carbon Dioxide 17 L (22-30) mmol/L BUN 18 H (7-17) mg/dL Creatinine 0.6 L (0.7-1.2) mg/dL Glucose 330 H (65-100) mg/dL POC Glucose 424 H 398 H (70-105) Hemoglobin A1c (4-6) % Lactic Acid (0.7-2.0) mmol/L Calcium 6.4 L (8.4-10.2) mg/dL Phosphorus (2.5-4.5) mg/dL Magnesium (1.7-2.3) mg/dL Urine WBC (Auto) (0.0-6.0) /HPF 02/18/19 02/18/19 02/18/19 Range/Units 22:29 23:18 23:55 MCH (28-32) pg MCHC (30-34) % Lymphocytes % (Manual) (13.4-35.0) % Lymphocytes # (Manual) (1.2-5.4) K/mm3 PT (12.2-14.9) Sec. INR (0.87-1.13) Sodium (137-145) mmol/L Potassium (3.6-5.0) mmol/L Chloride (98-107) mmol/L Carbon Dioxide (22-30) mmol/L BUN (7-17) mg/dL Creatinine (0.7-1.2) mg/dL Glucose (65-100) mg/dL POC Glucose 361 H 314 H (70-105) Hemoglobin A1c 13.0 H (4-6) % Lactic Acid (0.7-2.0) mmol/L Calcium (8.4-10.2) mg/dL Phosphorus (2.5-4.5) mg/dL Magnesium (1.7-2.3) mg/dL Urine WBC (Auto) (0.0-6.0) /HPF 02/19/19 02/19/19 02/19/19 Range/Units 01:05 02:09 03:18 MCH (28-32) pg MCHC (30-34) % Lymphocytes % (Manual) (13.4-35.0) % Lymphocytes # (Manual) (1.2-5.4) K/mm3 PT (12.2-14.9) Sec. INR (0.87-1.13) Sodium (137-145) mmol/L Potassium (3.6-5.0) mmol/L Chloride (98-107) mmol/L Carbon Dioxide (22-30) mmol/L BUN (7-17) mg/dL Creatinine (0.7-1.2) mg/dL Glucose (65-100) mg/dL POC Glucose 238 H 301 H 222 H (70-105) Hemoglobin A1c (4-6) % Lactic Acid (0.7-2.0) mmol/L Calcium (8.4-10.2) mg/dL Phosphorus (2.5-4.5) mg/dL Magnesium (1.7-2.3) mg/dL Urine WBC (Auto) (0.0-6.0) /HPF 02/19/19 02/19/19 02/19/19 Range/Units 04:40 05:20 05:20 MCH 33 H (28-32) pg MCHC 35 H (30-34) % Lymphocytes % (Manual) 5.0 L (13.4-35.0) % Lymphocytes # (Manual) 0.4 L (1.2-5.4) K/mm3 PT (12.2-14.9) Sec. INR (0.87-1.13) Sodium (137-145) mmol/L Potassium (3.6-5.0) mmol/L Chloride 115.4 H (98-107) mmol/L Carbon Dioxide 17 L (22-30) mmol/L BUN 18 H (7-17) mg/dL Creatinine 0.5 L (0.7-1.2) mg/dL Glucose 120 H (65-100) mg/dL POC Glucose 207 H (70-105) Hemoglobin A1c (4-6) % Lactic Acid (0.7-2.0) mmol/L Calcium 6.6 L (8.4-10.2) mg/dL Phosphorus 2.20 L D (2.5-4.5) mg/dL Magnesium 1.30 L (1.7-2.3) mg/dL Urine WBC (Auto) (0.0-6.0) /HPF 02/19/19 02/19/19 02/19/19 Range/Units 05:22 06:35 07:30 MCH (28-32) pg MCHC (30-34) % Lymphocytes % (Manual) (13.4-35.0) % Lymphocytes # (Manual) (1.2-5.4) K/mm3 PT (12.2-14.9) Sec. INR (0.87-1.13) Sodium (137-145) mmol/L Potassium (3.6-5.0) mmol/L Chloride 115.2 H (98-107) mmol/L Carbon Dioxide 16 L (22-30) mmol/L BUN (7-17) mg/dL Creatinine 0.5 L (0.7-1.2) mg/dL Glucose 129 H (65-100) mg/dL POC Glucose 176 H 131 H (70-105) Hemoglobin A1c (4-6) % Lactic Acid (0.7-2.0) mmol/L Calcium 7.0 L (8.4-10.2) mg/dL Phosphorus (2.5-4.5) mg/dL Magnesium (1.7-2.3) mg/dL Urine WBC (Auto) (0.0-6.0) /HPF 02/19/19 02/19/19 02/19/19 Range/Units 08:16 09:22 10:04 MCH (28-32) pg MCHC (30-34) % Lymphocytes % (Manual) (13.4-35.0) % Lymphocytes # (Manual) (1.2-5.4) K/mm3 PT (12.2-14.9) Sec. INR (0.87-1.13) Sodium (137-145) mmol/L Potassium (3.6-5.0) mmol/L Chloride (98-107) mmol/L Carbon Dioxide (22-30) mmol/L BUN (7-17) mg/dL Creatinine (0.7-1.2) mg/dL Glucose (65-100) mg/dL POC Glucose 138 H 118 H 166 H (70-105) Hemoglobin A1c (4-6) % Lactic Acid (0.7-2.0) mmol/L Calcium (8.4-10.2) mg/dL Phosphorus (2.5-4.5) mg/dL Magnesium (1.7-2.3) mg/dL Urine WBC (Auto) (0.0-6.0) /HPF 02/19/19 02/19/19 02/19/19 Range/Units 11:11 11:59 13:12 MCH (28-32) pg MCHC (30-34) % Lymphocytes % (Manual) (13.4-35.0) % Lymphocytes # (Manual) (1.2-5.4) K/mm3 PT (12.2-14.9) Sec. INR (0.87-1.13) Sodium (137-145) mmol/L Potassium (3.6-5.0) mmol/L Chloride (98-107) mmol/L Carbon Dioxide (22-30) mmol/L BUN (7-17) mg/dL Creatinine (0.7-1.2) mg/dL Glucose (65-100) mg/dL POC Glucose 118 H 123 H 148 H (70-105) Hemoglobin A1c (4-6) % Lactic Acid (0.7-2.0) mmol/L Calcium (8.4-10.2) mg/dL Phosphorus (2.5-4.5) mg/dL Magnesium (1.7-2.3) mg/dL Urine WBC (Auto) (0.0-6.0) /HPF 02/19/19 Range/Units 14:02 MCH (28-32) pg MCHC (30-34) % Lymphocytes % (Manual) (13.4-35.0) % Lymphocytes # (Manual) (1.2-5.4) K/mm3 PT (12.2-14.9) Sec. INR (0.87-1.13) Sodium (137-145) mmol/L Potassium (3.6-5.0) mmol/L Chloride (98-107) mmol/L Carbon Dioxide (22-30) mmol/L BUN (7-17) mg/dL Creatinine (0.7-1.2) mg/dL Glucose (65-100) mg/dL POC Glucose 123 H (70-105) Hemoglobin A1c (4-6) % Lactic Acid (0.7-2.0) mmol/L Calcium (8.4-10.2) mg/dL Phosphorus (2.5-4.5) mg/dL Magnesium (1.7-2.3) mg/dL Urine WBC (Auto) (0.0-6.0) /HPF - Imaging and Cardiology Chest x-ray: image reviewed CT scan - abdomen: image reviewed Assessment and Plan Cultures: Blood culture 02/18/19 - NGTD Urine culture 02/18/19 - NGTD Surgery culture 02/18/19 - NGTD, gram stain with GPC in pairs A/P: 43 yo F PMHx diabetes admitted with perforated pyloric ulcer 1. Septic shock secondary to abdominal perforation - s/p surgery on 02/18 with lavage, patch, and drains. Appreciate cultures taken by Dr. Crenshaw. Recommend co ntinuing pip-dallas and stopping levofloxacin and metronidazole as these are essentially duplicating coverage. As she has had surgery for repair, anticipate a short course of antibiotics post-operatively (4-5 days) assuming uncomplicated course. 2. DM2 3. PUD Recs: - Continue pip-dallas 4.5g q8h (expect 4-5 day duration post-op) - stop levofloxacin - stop metronidazole - follow up blood, urine, and surgical cultures. Karmen Canela MD [facility] ([facility] M: [phone] O: [phone] F: [phone]
[2019-02-19 18:15] LABS: BUN/Creatinine Ratio 30; Blood Urea Nitrogen 15 mg/dL (7-17); Calcium 6.7 mg/dL (8.4-10.2); Hemolysis Index 18
[2019-02-19] MEDS: ZOFRAN IV PRN (20:57)
[2019-02-20] MEDS: LEVOPHED DRIP 4 MG/NS 250 ML 4 MG/250 ML BAG IV SCH (00:35)
[2019-02-20] MEDS: DILAUDID IV PRN ×2 (02:08→06:04)
[2019-02-20] MEDS: ZOSYN/NS 4.5GM/100ML 4.5 GM/100 ML VIAL IV SCH ×3 (06:04→21:40)
[2019-02-20] MEDS: HumuLIN R SUB-Q SCH ×3 (06:05→17:57)
[2019-02-20] MEDS: NACL 0.45% 1000 ML 1,000 ML IV SCH ×2 (08:43→17:57)
[2019-02-20] MEDS: LOVENOX SUB-Q SCH (09:37)
[2019-02-20] MEDS: SODIUM CHLORIDE FLUSH SYRINGE 10 ML IV SCH ×2 (09:37→21:40)
[2019-02-20] MEDS: MORPHINE IV PRN ×3 (09:37→23:17)
[2019-02-20] MEDS: PROTONIX IV SCH ×2 (09:37→21:40)
[2019-02-20] MEDS: LANTUS SUB-Q SCH (09:38)
--- NOTE | 2019-02-20 12:19 | Progress Note ---
Assessment and Plan 43 yo F S/P exploratory laparotomy, peritoneal lavage, minnie patch, placement of drain, L IJ TLC, POD 2 1. perforated pyloric ulcer with gross peritonitis 2. septic shock 2/2 #1 3. DKA Plan: 1. neuro - prn pain control, change to q3h 2. CV - levophed off. monitor blood pressure. If patient stays off pressors for 24 hours, may remove central line. 3. Resp - incentive spirometry, supplemental O2 4. GI - strict NPO, IVF, NGT to LCWS - DO NOT MANIPULATE, FLUSH, REMOVE, OR USE FOR MEDS. PPI BID. JEREMIAH drain - monitor output. Follow up pathology. UGI series in am tomorrow. Does not need TPN at this time. 5. - dc henry 6. ID - continue abx IV per ID. follow up OR cultures 7. Endo - insulin per DKA protocol 8. Musc - DVT ppx, OOB to edge of bed today 9. FEN - continue IVF, NPO. repeat BMP, Mg,Phos daily. replace lytes as needed D/W Dr. Leyva. Thank you, please call with questions. Subjective Date of service: 02/20/19 Narrative: Pt seen and examined. c/o being thirsty. Having some abdominal pain. No f/c, n/v Objective Vital Signs - 12hr 02/20/19 02/20/19 02/20/19 00:30 00:44 00:45 Temperature 98.3 F Pulse Rate 117 H 120 H Pulse Rate [ From Monitor] Respiratory 19 20 Rate Blood Pressure 111/63 110/64 O2 Sat by Pulse Oximetry 02/20/19 02/20/19 02/20/19 01:00 01:15 01:30 Temperature Pulse Rate 115 H 118 H 119 H Pulse Rate [ From Monitor] Respiratory 15 20 18 Rate Blood Pressure 111/65 114/68 110/70 O2 Sat by Pulse 100 99 Oximetry 02/20/19 02/20/19 02/20/19 01:45 02:01 02:15 Temperature Pulse Rate 113 H 120 H 115 H Pulse Rate [ From Monitor] Respiratory 14 16 12 Rate Blood Pressure 116/66 116/66 108/65 O2 Sat by Pulse 100 Oximetry 02/20/19 02/20/19 02/20/19 02:30 02:45 03:00 Temperature Pulse Rate 116 H 114 H 114 H Pulse Rate [ From Monitor] Respiratory 11 L 12 10 L Rate Blood Pressure 104/62 112/65 99/64 O2 Sat by Pulse Oximetry 02/20/19 02/20/19 02/20/19 03:15 03:30 03:45 Temperature Pulse Rate 124 H 118 H 115 H Pulse Rate [ From Monitor] Respiratory 14 15 14 Rate Blood Pressure 99/64 107/67 111/63 O2 Sat by Pulse 99 99 100 Oximetry 02/20/19 02/20/19 02/20/19 03:55 04:00 04:15 Temperature 98.4 F 98.4 F Pulse Rate 113 H 111 H Pulse Rate [ 113 H From Monitor] Respiratory 11 L 11 L Rate Blood Pressure 104/63 107/63 O2 Sat by Pulse 99 100 Oximetry 02/20/19 02/20/19 02/20/19 04:30 04:45 05:00 Temperature Pulse Rate 117 H 116 H 115 H Pulse Rate [ From Monitor] Respiratory 24 14 12 Rate Blood Pressure 127/78 110/68 113/68 O2 Sat by Pulse 100 99 Oximetry 02/20/19 02/20/19 02/20/19 05:15 05:30 05:45 Temperature Pulse Rate 115 H 114 H 114 H Pulse Rate [ From Monitor] Respiratory 21 16 13 Rate Blood Pressure 109/70 113/68 115/69 O2 Sat by Pulse 100 100 100 Oximetry 02/20/19 02/20/19 02/20/19 06:00 06:15 06:30 Temperature Pulse Rate 117 H 113 H 114 H Pulse Rate [ From Monitor] Respiratory 22 11 L 10 L Rate Blood Pressure 121/76 112/65 103/67 O2 Sat by Pulse 100 100 100 Oximetry 02/20/19 02/20/19 02/20/19 06:45 07:00 07:15 Temperature Pulse Rate 112 H 113 H 112 H Pulse Rate [ From Monitor] Respiratory 10 L 12 12 Rate Blood Pressure 110/68 101/65 114/65 O2 Sat by Pulse 99 100 99 Oximetry 02/20/19 02/20/19 02/20/19 07:30 07:45 08:00 Temperature 97.6 F Pulse Rate 111 H 110 H 117 H Pulse Rate [ From Monitor] Respiratory 11 L 11 L 19 Rate Blood Pressure 106/63 101/64 111/71 O2 Sat by Pulse 99 99 100 Oximetry 02/20/19 02/20/19 02/20/19 08:01 08:14 08:15 Temperature Pulse Rate 116 H Pulse Rate [ From Monitor] Respiratory 18 Rate Blood Pressure 110/75 O2 Sat by Pulse 99 99 100 Oximetry 02/20/19 02/20/19 02/20/19 08:30 08:45 09:00 Temperature Pulse Rate 118 H 114 H 116 H Pulse Rate [ From Monitor] Respiratory 19 13 16 Rate Blood Pressure 117/72 106/63 110/67 O2 Sat by Pulse 99 Oximetry 02/20/19 02/20/19 02/20/19 09:15 09:30 09:45 Temperature Pulse Rate 115 H 120 H 113 H Pulse Rate [ From Monitor] Respiratory 15 16 13 Rate Blood Pressure 105/67 102/62 95/50 O2 Sat by Pulse Oximetry 02/20/19 02/20/19 02/20/19 10:00 10:15 10:30 Temperature Pulse Rate 111 H 110 H 112 H Pulse Rate [ From Monitor] Respiratory 11 L 12 13 Rate Blood Pressure 92/48 102/48 107/55 O2 Sat by Pulse 100 100 99 Oximetry 02/20/19 02/20/19 10:45 11:00 Temperature Pulse Rate 119 H 117 H Pulse Rate [ From Monitor] Respiratory 17 20 Rate Blood Pressure 96/63 102/61 O2 Sat by Pulse 100 Oximetry - General physical appearance Narrative Exam: Gen: awake and alert. confused at times. NAD ENT: NGT with light green drainage CV; s1, S2+ resp: even and unlabored Abd: soft, ND, moderate TTP in midline near incision. Packing removed from incision. Incision c/d/i. Covered with opsite dressing. R JEREMIAH drain serous. Ext: no c/c/e : henry with rei urine Uo: 600cc NGT output: 500cc JEREMIAH output: 50cc - Labs 02/19/19 05:20 02/19/19 16:32 Diabetes panel 02/19/19 Range/Units 16:32 Sodium 141 (137-145) mmol/L Potassium 4.6 (3.6-5.0) mmol/L Chloride 113.3 H (98-107) mmol/L Carbon Dioxide 16 L (22-30) mmol/L BUN 15 (7-17) mg/dL Creatinine 0.5 L (0.7-1.2) mg/dL Glucose 199 H (65-100) mg/dL Calcium 6.7 L (8.4-10.2) mg/dL Calcium panel 02/19/19 Range/Units 16:32 Calcium 6.7 L (8.4-10.2) mg/dL Pituitary panel 02/19/19 Range/Units 16:32 Sodium 141 (137-145) mmol/L Potassium 4.6 (3.6-5.0) mmol/L Chloride 113.3 H (98-107) mmol/L Carbon Dioxide 16 L (22-30) mmol/L BUN 15 (7-17) mg/dL Creatinine 0.5 L (0.7-1.2) mg/dL Glucose 199 H (65-100) mg/dL Calcium 6.7 L (8.4-10.2) mg/dL Adrenal panel 02/19/19 Range/Units 16:32 Sodium 141 (137-145) mmol/L Potassium 4.6 (3.6-5.0) mmol/L Chloride 113.3 H (98-107) mmol/L Carbon Dioxide 16 L (22-30) mmol/L BUN 15 (7-17) mg/dL Creatinine 0.5 L (0.7-1.2) mg/dL Glucose 199 H (65-100) mg/dL Calcium 6.7 L (8.4-10.2) mg/dL
--- NOTE | 2019-02-20 12:38 | Progress Note ---
Hospitalist Physical - Constitutional Vitals: Temp Pulse Resp BP Pulse Ox 97.6 F 117 H 20 102/61 100 02/20/19 08:00 02/20/19 11:00 02/20/19 11:00 02/20/19 11:00 02/20/19 11:00 General appearance: Present: no acute distress, well-nourished Results - Labs CBC & Chem 7: 02/19/19 05:20 02/19/19 16:32 Labs: Laboratory Last Values WBC 7.2 K/mm3 (4.5-11.0) 02/19/19 05:20 RBC 4.00 M/mm3 (3.65-5.03) 02/19/19 05:20 Hgb 13.0 gm/dl (10.1-14.3) 02/19/19 05:20 Hct 37.4 % (30.3-42.9) D 02/19/19 05:20 MCV 94 fl (79-97) 02/19/19 05:20 MCH 33 pg (28-32) H 02/19/19 05:20 MCHC 35 % (30-34) H 02/19/19 05:20 RDW 13.3 % (13.2-15.2) 02/19/19 05:20 Plt Count 284 K/mm3 (140-440) 02/19/19 05:20 Lymph % (Auto) 5.3 % (13.4-35.0) L 02/18/19 13:18 [place] % (Auto) 5.6 % (0.0-7.3) 02/18/19 13:18 Eos % (Auto) 0.0 % (0.0-4.3) 02/18/19 13:18 Baso % (Auto) 0.1 % (0.0-1.8) 02/18/19 13:18 Lymph # 0.2 K/mm3 (1.2-5.4) L 02/18/19 13:18 [place] # 0.3 K/mm3 (0.0-0.8) 02/18/19 13:18 Eos # 0.0 K/mm3 (0.0-0.4) 02/18/19 13:18 Baso # 0.0 K/mm3 (0.0-0.1) 02/18/19 13:18 Add Manual Diff Complete 02/19/19 05:20 Total Counted 100 02/19/19 05:20 Seg Neutrophils % 89.0 % (40.0-70.0) H 02/18/19 13:18 Seg Neuts % (Manual) 49.0 % (40.0-70.0) 02/19/19 05:20 40.0 % 02/19/19 05:20 5.0 % (13.4-35.0) L 02/19/19 05:20 Reactive Lymphs % (Man) 0 % 02/19/19 05:20 5.0 % (0.0-7.3) 02/19/19 05:20 0 % (0.0-4.3) 02/19/19 05:20 1.0 % (0.0-1.8) 02/19/19 05:20 0 % 02/19/19 05:20 0 % 02/19/19 05:20 0 % 02/19/19 05:20 0 % 02/19/19 05:20 Nucleated RBC % Not Reportable 02/19/19 05:20 Seg Neutrophils # 4.2 K/mm3 (1.8-7.7) 02/18/19 13:18 Seg Neutrophils # Man 3.5 K/mm3 (1.8-7.7) 02/19/19 05:20 Band Neutrophils # 2.9 K/mm3 02/19/19 05:20 0.4 K/mm3 (1.2-5.4) L 02/19/19 05:20 Abs React Lymphs (Man) 0.0 K/mm3 02/19/19 05:20 0.4 K/mm3 (0.0-0.8) 02/19/19 05:20 0.0 K/mm3 (0.0-0.4) 02/19/19 05:20 0.1 K/mm3 (0.0-0.1) 02/19/19 05:20 0.0 K/mm3 02/19/19 05:20 0.0 K/mm3 02/19/19 05:20 0.0 K/mm3 02/19/19 05:20 Blast Cells # 0.0 K/mm3 02/19/19 05:20 WBC Morphology Not Reportable 02/19/19 05:20 Hypersegmented Neuts Not Reportable 02/19/19 05:20 Hyposegmented Neuts Not Reportable 02/19/19 05:20 Hypogranular Neuts Not Reportable 02/19/19 05:20 Not Reportable 02/19/19 05:20 Not Reportable 02/19/19 05:20 Not Reportable 02/19/19 05:20 Not Reportable 02/19/19 05:20 Not Reportable 02/19/19 05:20 Not Reportable 02/19/19 05:20 Consistent w auto 02/19/19 05:20 Not Reportable 02/19/19 05:20 Plt Clumps, EDTA Not Reportable 02/19/19 05:20 Not Reportable 02/19/19 05:20 Not Reportable 02/19/19 05:20 Not Reportable 02/19/19 05:20 Plt Morphology Comment Not Reportable 02/19/19 05:20 RBC Morphology Normal 02/19/19 05:20 Dimorphic RBCs Not Reportable 02/19/19 05:20 Not Reportable 02/19/19 05:20 Not Reportable 02/19/19 05:20 Not Reportable 02/19/19 05:20 Not Reportable 02/19/19 05:20 Not Reportable 02/19/19 05:20 Not Reportable 02/19/19 05:20 Not Reportable 02/19/19 05:20 Not Reportable 02/19/19 05:20 Not Reportable 02/19/19 05:20 Not Reportable 02/19/19 05:20 Not Reportable 02/19/19 05:20 Not Reportable 02/19/19 05:20 Not Reportable 02/19/19 05:20 Not Reportable 02/19/19 05:20 Not Reportable 02/19/19 05:20 Not Reportable 02/19/19 05:20 Not Reportable 02/19/19 05:20 Not Reportable 02/19/19 05:20 Not Reportable 02/19/19 05:20 Acanthocytes (Spur) Not Reportable 02/19/19 05:20 Rouleaux Not Reportable 02/19/19 05:20 Not Reportable 02/19/19 05:20 Not Reportable 02/19/19 05:20 Not Reportable 02/19/19 05:20 Not Reportable 02/19/19 05:20 Hem Pathologist Commnt No 02/19/19 05:20 PT 18.0 Sec. (12.2-14.9) H 02/18/19 18:00 INR 1.53 (0.87-1.13) H 02/18/19 18:00 APTT 30.1 Sec. (24.2-36.6) 02/18/19 18:00 VBG pH 7.319 (7.320-7.420) L 02/18/19 13:18 Sodium 141 mmol/L (137-145) 02/19/19 16:32 Potassium 4.6 mmol/L (3.6-5.0) 02/19/19 16:32 Chloride 113.3 mmol/L (98-107) H 02/19/19 16:32 Carbon Dioxide 16 mmol/L (22-30) L 02/19/19 16:32 16 mmol/L 02/19/19 16:32 BUN 15 mg/dL (7-17) 02/19/19 16:32 0.5 mg/dL (0.7-1.2) L 02/19/19 16:32 Estimated GFR > 60 ml/min 02/19/19 16:32 30 % 02/19/19 16:32 Glucose 199 mg/dL (65-100) H 02/19/19 16:32 POC Glucose 153 (70-105) H 02/20/19 12:24 13.0 % (4-6) H 02/18/19 22:29 Lactic Acid 1.20 mmol/L (0.7-2.0) 02/19/19 05:20 Calcium 6.7 mg/dL (8.4-10.2) L 02/19/19 16:32 Phosphorus 2.20 mg/dL (2.5-4.5) L D 02/19/19 05:20 Magnesium 1.30 mg/dL (1.7-2.3) L 02/19/19 05:20 0.50 mg/dL (0.1-1.2) 02/18/19 13:18 AST 22 units/L (5-40) 02/18/19 13:18 ALT 10 units/L (7-56) 02/18/19 13:18 58 units/L (35-129) 02/18/19 13:18 6.0 g/dL (6.3-8.2) L 02/18/19 13:18 3.5 g/dL (3.9-5) L 02/18/19 13:18 1.4 % 02/18/19 13:18 32 units/L (13-60) 02/18/19 13:18 HCG, Qual Negative (Negative) 02/18/19 13:18 Yellow (Yellow) 02/18/19 15:54 Clear (Clear) 02/18/19 15:54 5.0 (5.0-7.0) 02/18/19 15:54 Ur Specific [place] 1.028 (1.003-1.030) 02/18/19 15:54 30 mg/dl mg/dL (Negative) 02/18/19 15:54 >=500 mg/dL (Negative) 02/18/19 15:54 20 mg/dL (Negative) 02/18/19 15:54 Lg (Negative) 02/18/19 15:54 Neg (Negative) 02/18/19 15:54 Neg (Negative) 02/18/19 15:54 < 2.0 mg/dL (<2.0) 02/18/19 15:54 Ur Leukocyte Esterase Neg (Negative) 02/18/19 15:54 24.0 /HPF (0.0-6.0) H 02/18/19 15:54 6.0 /HPF (0.0-6.0) 02/18/19 15:54 U Epithel Cells (Auto) 1.0 /HPF (0-13.0) 02/18/19 15:54 Few /HPF 02/18/19 15:54 Blood Type A POSITIVE 02/18/19 18:00 Antibody Screen Negative 02/18/19 18:00 Active Medications - Current Medications Current Medications: Generic Name Dose Route Start Last Admin Trade Name Freq PRN Reason Stop Dose Admin Acetaminophen 650 mg 02/18/19 21:07 Tylenol PO Q4H PRN Pain MILD(1-3)/Fever >100.5/MANRIQUE Dextrose 50 ml 02/19/19 14:47 D50w (25gm) Syringe IV PRN PRN Hypoglycemia Enoxaparin Sodium 40 mg 02/19/19 10:00 02/20/19 09:37 Lovenox SUB-Q 40 mg DAILY ALDEN Administration Norepinephrine 4 mg in 250 mls @ 7.5 mls/hr 02/18/19 18:40 02/20/19 08:42 Levophed Drip 4 Mg/Ns 250 Ml IV 0 mcg/min TITR ALDEN 0 mls/hr Titration Protocol 2 MCG/MIN Piperacillin Sod/Tazobactam Sod 4.5 gm in 100 mls @ 200 mls/hr 02/19/19 05:30 02/20/19 06:04 Zosyn/Ns 4.5gm/100ml IV 200 mls/hr Q8HR ALDEN Administration Protocol Sodium Chloride 1,000 mls @ 125 mls/hr 02/19/19 15:00 02/20/19 08:43 Nacl 0.45% 1000 Ml IV 125 mls/hr DIRECT ALDEN Administration Insulin Glargine 10 units 02/19/19 15:00 02/20/19 09:38 Lantus SUB-Q 10 units DAILY ALDEN Administration Insulin Human Regular 0 units 02/19/19 15:00 02/20/19 12:22 Humulin R SUB-Q 2 units Q6HR ALDEN Administration Protocol Metoclopramide HCl 10 mg 02/18/19 21:07 Reglan IV Q6H PRN Nausea And Vomiting Morphine Sulfate 2 mg 02/18/19 17:33 02/19/19 05:14 Morphine IV 2 mg Q4H PRN Administration Pain, Moderate (4-6) Morphine Sulfate 2 mg 02/20/19 12:19 Morphine IV 02/20/19 12:20 ONCE ONE Morphine Sulfate 4 mg 02/20/19 12:20 Morphine IV Q3H PRN Pain , Severe (7-10) Ondansetron HCl 4 mg 02/18/19 21:07 02/19/19 20:57 Zofran IV 4 mg Q3H PRN Administration Nausea And Vomiting Pantoprazole Sodium 40 mg 02/19/19 11:00 02/20/19 09:37 Protonix IV 40 mg BID ALDEN Administration Sodium Chloride 10 ml 02/19/19 10:00 02/20/19 09:37 Sodium Chloride Flush Syringe 10 Ml IV 10 ml BID ALDEN Administration Sodium Chloride 10 ml 02/19/19 05:06 Sodium Chloride Flush Syringe 10 Ml IV PRN PRN LINE FLUSH
[2019-02-20] MEDS: ZOFRAN IV PRN ×2 (12:53→23:16)
[2019-02-20] MEDS ORDERED: MORPHINE IV ONE (13:00)
--- NOTE | 2019-02-20 13:23 | Progress Note ---
Assessment and Plan Impression: Diabetic ketoacidosis improved Perforated gastric ulcer Peritonitis Sepsis/hypotension possibly volume depleted versus septic shock Recommendation: Continue with IV fluids. TPN in next 24 hours so. Antibiotics per ID DVT and GI prophylaxis Total critical care time 31 minute Subjective Date of service: 02/20/19 Interval history: Patient awake and alert complaining of being cold and abdominal pain. Status post gastric perforation currently nothing by mouth with NG tube. Off vasopressors Objective Vital Signs - 12hr 02/20/19 02/20/19 02/20/19 01:30 01:45 02:01 Temperature Pulse Rate 119 H 113 H 120 H Pulse Rate [ From Monitor] Respiratory 18 14 16 Rate Blood Pressure 110/70 116/66 116/66 O2 Sat by Pulse 99 Oximetry 02/20/19 02/20/19 02/20/19 02:15 02:30 02:45 Temperature Pulse Rate 115 H 116 H 114 H Pulse Rate [ From Monitor] Respiratory 12 11 L 12 Rate Blood Pressure 108/65 104/62 112/65 O2 Sat by Pulse 100 Oximetry 02/20/19 02/20/19 02/20/19 03:00 03:15 03:30 Temperature Pulse Rate 114 H 124 H 118 H Pulse Rate [ From Monitor] Respiratory 10 L 14 15 Rate Blood Pressure 99/64 99/64 107/67 O2 Sat by Pulse 99 99 Oximetry 02/20/19 02/20/19 02/20/19 03:45 03:55 04:00 Temperature 98.4 F 98.4 F Pulse Rate 115 H 113 H Pulse Rate [ 113 H From Monitor] Respiratory 14 11 L Rate Blood Pressure 111/63 104/63 O2 Sat by Pulse 100 99 Oximetry 02/20/19 02/20/19 02/20/19 04:15 04:30 04:45 Temperature Pulse Rate 111 H 117 H 116 H Pulse Rate [ From Monitor] Respiratory 11 L 24 14 Rate Blood Pressure 107/63 127/78 110/68 O2 Sat by Pulse 100 100 Oximetry 02/20/19 02/20/19 02/20/19 05:00 05:15 05:30 Temperature Pulse Rate 115 H 115 H 114 H Pulse Rate [ From Monitor] Respiratory 12 21 16 Rate Blood Pressure 113/68 109/70 113/68 O2 Sat by Pulse 99 100 100 Oximetry 02/20/19 02/20/19 02/20/19 05:45 06:00 06:15 Temperature Pulse Rate 114 H 117 H 113 H Pulse Rate [ From Monitor] Respiratory 13 22 11 L Rate Blood Pressure 115/69 121/76 112/65 O2 Sat by Pulse 100 100 100 Oximetry 02/20/19 02/20/19 02/20/19 06:30 06:45 07:00 Temperature Pulse Rate 114 H 112 H 113 H Pulse Rate [ From Monitor] Respiratory 10 L 10 L 12 Rate Blood Pressure 103/67 110/68 101/65 O2 Sat by Pulse 100 99 100 Oximetry 02/20/19 02/20/19 02/20/19 07:15 07:30 07:45 Temperature Pulse Rate 112 H 111 H 110 H Pulse Rate [ From Monitor] Respiratory 12 11 L 11 L Rate Blood Pressure 114/65 106/63 101/64 O2 Sat by Pulse 99 99 99 Oximetry 02/20/19 02/20/19 02/20/19 08:00 08:01 08:14 Temperature 97.6 F Pulse Rate 117 H Pulse Rate [ From Monitor] Respiratory 19 Rate Blood Pressure 111/71 O2 Sat by Pulse 100 99 99 Oximetry 02/20/19 02/20/19 02/20/19 08:15 08:30 08:45 Temperature Pulse Rate 116 H 118 H 114 H Pulse Rate [ From Monitor] Respiratory 18 19 13 Rate Blood Pressure 110/75 117/72 106/63 O2 Sat by Pulse 100 99 Oximetry 02/20/19 02/20/19 02/20/19 09:00 09:15 09:30 Temperature Pulse Rate 116 H 115 H 120 H Pulse Rate [ From Monitor] Respiratory 16 15 16 Rate Blood Pressure 110/67 105/67 102/62 O2 Sat by Pulse Oximetry 02/20/19 02/20/19 02/20/19 09:45 10:00 10:15 Temperature Pulse Rate 113 H 111 H 110 H Pulse Rate [ From Monitor] Respiratory 13 11 L 12 Rate Blood Pressure 95/50 92/48 102/48 O2 Sat by Pulse 100 100 Oximetry 02/20/19 02/20/19 02/20/19 10:30 10:45 11:00 Temperature Pulse Rate 112 H 119 H 117 H Pulse Rate [ From Monitor] Respiratory 13 17 20 Rate Blood Pressure 107/55 96/63 102/61 O2 Sat by Pulse 99 100 Oximetry 02/20/19 02/20/19 02/20/19 11:15 11:30 11:45 Temperature Pulse Rate 114 H 113 H 113 H Pulse Rate [ From Monitor] Respiratory 11 L 12 14 Rate Blood Pressure 94/53 97/51 93/49 O2 Sat by Pulse 100 Oximetry 02/20/19 02/20/19 02/20/19 12:00 12:15 12:30 Temperature 99.2 F Pulse Rate 115 H 115 H 112 H Pulse Rate [ From Monitor] Respiratory 18 15 17 Rate Blood Pressure 89/59 102/61 107/58 O2 Sat by Pulse 99 99 Oximetry 02/20/19 02/20/19 12:45 13:00 Temperature Pulse Rate 117 H 112 H Pulse Rate [ From Monitor] Respiratory 25 H 20 Rate Blood Pressure 117/66 107/65 O2 Sat by Pulse Oximetry Constitutional: no acute distress, alert Eyes: non-icteric ENT: oropharynx moist Neck: supple Effort: normal Ascultation: Bilateral: clear Cardiovascular: regular rate and rhythm Gastrointestinal: hypoactive bowel sounds, tender, non-distended Integumentary: normal Extremities: no cyanosis Neurologic: non-focal exam Psychiatric: mood appropriate CBC and BMP: 02/19/19 05:20 02/19/19 16:32 ABG, PT/INR, D-dimer: PT/INR, D-dimer PT 18.0 Sec. (12.2-14.9) H 02/18/19 18:00 INR 1.53 (0.87-1.13) H 02/18/19 18:00 Abnormal lab findings: Abnormal Labs 02/18/19 02/18/19 02/18/19 12:36 13:18 13:18 Hct 43.6 H MCV 99 H MCH MCHC Lymph % (Auto) 5.3 L Lymph # 0.2 L Seg Neutrophils % 89.0 H Lymphocytes % (Manual) Lymphocytes # (Manual) PT INR VBG pH Sodium 135 L Potassium 5.2 H Chloride 90.8 L Carbon Dioxide 16 L BUN 25 H Creatinine Glucose 988 H* POC Glucose > 500 H Hemoglobin A1c Lactic Acid Calcium Phosphorus Magnesium Total Protein 6.0 L Albumin 3.5 L Urine WBC (Auto) 02/18/19 02/18/19 02/18/19 13:18 13:18 15:34 Hct MCV MCH MCHC Lymph % (Auto) Lymph # Seg Neutrophils % Lymphocytes % (Manual) Lymphocytes # (Manual) PT INR VBG pH 7.319 L Sodium 133 L Potassium Chloride 97.5 L Carbon Dioxide 14 L BUN 21 H Creatinine Glucose 822 H* POC Glucose Hemoglobin A1c Lactic Acid Calcium Phosphorus 8.20 H Magnesium Total Protein Albumin Urine WBC (Auto) 02/18/19 02/18/19 02/18/19 15:43 15:43 15:54 Hct MCV MCH MCHC Lymph % (Auto) Lymph # Seg Neutrophils % Lymphocytes % (Manual) Lymphocytes # (Manual) PT INR VBG pH Sodium 134 L Potassium Chloride 94.7 L Carbon Dioxide 18 L BUN 21 H Creatinine Glucose 811 H* POC Glucose Hemoglobin A1c Lactic Acid 4.30 H* Calcium Phosphorus Magnesium Total Protein Albumin Urine WBC (Auto) 24.0 H 02/18/19 02/18/19 02/18/19 16:52 18:00 18:32 Hct MCV MCH MCHC Lymph % (Auto) Lymph # Seg Neutrophils % Lymphocytes % (Manual) Lymphocytes # (Manual) PT 18.0 H INR 1.53 H VBG pH Sodium Potassium Chloride Carbon Dioxide BUN Creatinine Glucose POC Glucose > 500 H > 500 H Hemoglobin A1c Lactic Acid Calcium Phosphorus Magnesium Total Protein Albumin Urine WBC (Auto) 02/18/19 02/18/19 02/18/19 18:38 19:47 21:05 Hct MCV MCH MCHC Lymph % (Auto) Lymph # Seg Neutrophils % Lymphocytes % (Manual) Lymphocytes # (Manual) PT INR VBG pH Sodium Potassium 3.5 L Chloride 108.8 H Carbon Dioxide 16 L BUN 21 H Creatinine Glucose 575 H* POC Glucose > 500 H 424 H Hemoglobin A1c Lactic Acid Calcium 6.1 L D Phosphorus Magnesium Total Protein Albumin Urine WBC (Auto) 02/18/19 02/18/19 02/18/19 22:09 22:29 22:29 Hct MCV MCH MCHC Lymph % (Auto) Lymph # Seg Neutrophils % Lymphocytes % (Manual) Lymphocytes # (Manual) PT INR VBG pH Sodium Potassium 3.5 L Chloride 111.9 H Carbon Dioxide 17 L BUN 18 H Creatinine 0.6 L Glucose 330 H POC Glucose 398 H Hemoglobin A1c 13.0 H Lactic Acid Calcium 6.4 L Phosphorus Magnesium Total Protein Albumin Urine WBC (Auto) 02/18/19 02/18/19 02/19/19 23:18 23:55 01:05 Hct MCV MCH MCHC Lymph % (Auto) Lymph # Seg Neutrophils % Lymphocytes % (Manual) Lymphocytes # (Manual) PT INR VBG pH Sodium Potassium Chloride Carbon Dioxide BUN Creatinine Glucose POC Glucose 361 H 314 H 238 H Hemoglobin A1c Lactic Acid Calcium Phosphorus Magnesium Total Protein Albumin Urine WBC (Auto) 02/19/19 02/19/19 02/19/19 02:09 03:18 04:40 Hct MCV MCH MCHC Lymph % (Auto) Lymph # Seg Neutrophils % Lymphocytes % (Manual) Lymphocytes # (Manual) PT INR VBG pH Sodium Potassium Chloride Carbon Dioxide BUN Creatinine Glucose POC Glucose 301 H 222 H 207 H Hemoglobin A1c Lactic Acid Calcium Phosphorus Magnesium Total Protein Albumin Urine WBC (Auto) 02/19/19 02/19/19 02/19/19 05:20 05:20 05:22 Hct MCV MCH 33 H MCHC 35 H Lymph % (Auto) Lymph # Seg Neutrophils % Lymphocytes % (Manual) 5.0 L Lymphocytes # (Manual) 0.4 L PT INR VBG pH Sodium Potassium Chloride 115.4 H Carbon Dioxide 17 L BUN 18 H Creatinine 0.5 L Glucose 120 H POC Glucose 176 H Hemoglobin A1c Lactic Acid Calcium 6.6 L Phosphorus 2.20 L D Magnesium 1.30 L Total Protein Albumin Urine WBC (Auto) 02/19/19 02/19/19 02/19/19 06:35 07:30 08:16 Hct MCV MCH MCHC Lymph % (Auto) Lymph # Seg Neutrophils % Lymphocytes % (Manual) Lymphocytes # (Manual) PT INR VBG pH Sodium Potassium Chloride 115.2 H Carbon Dioxide 16 L BUN Creatinine 0.5 L Glucose 129 H POC Glucose 131 H 138 H Hemoglobin A1c Lactic Acid Calcium 7.0 L Phosphorus Magnesium Total Protein Albumin Urine WBC (Auto) 02/19/19 02/19/19 02/19/19 09:22 10:04 11:11 Hct MCV MCH MCHC Lymph % (Auto) Lymph # Seg Neutrophils % Lymphocytes % (Manual) Lymphocytes # (Manual) PT INR VBG pH Sodium Potassium Chloride Carbon Dioxide BUN Creatinine Glucose POC Glucose 118 H 166 H 118 H Hemoglobin A1c Lactic Acid Calcium Phosphorus Magnesium Total Protein Albumin Urine WBC (Auto) 02/19/19 02/19/19 02/19/19 11:59 13:12 14:02 Hct MCV MCH MCHC Lymph % (Auto) Lymph # Seg Neutrophils % Lymphocytes % (Manual) Lymphocytes # (Manual) PT INR VBG pH Sodium Potassium Chloride Carbon Dioxide BUN Creatinine Glucose POC Glucose 123 H 148 H 123 H Hemoglobin A1c Lactic Acid Calcium Phosphorus Magnesium Total Protein Albumin Urine WBC (Auto) 02/19/19 02/19/19 02/19/19 15:17 16:32 18:07 Hct MCV MCH MCHC Lymph % (Auto) Lymph # Seg Neutrophils % Lymphocytes % (Manual) Lymphocytes # (Manual) PT INR VBG pH Sodium Potassium Chloride 113.3 H Carbon Dioxide 16 L BUN Creatinine 0.5 L Glucose 199 H POC Glucose 127 H 204 H Hemoglobin A1c Lactic Acid Calcium 6.7 L Phosphorus Magnesium Total Protein Albumin Urine WBC (Auto) 02/19/19 02/20/19 02/20/19 23:19 05:41 12:24 Hct MCV MCH MCHC Lymph % (Auto) Lymph # Seg Neutrophils % Lymphocytes % (Manual) Lymphocytes # (Manual) PT INR VBG pH Sodium Potassium Chloride Carbon Dioxide BUN Creatinine Glucose POC Glucose 202 H 135 H 153 H Hemoglobin A1c Lactic Acid Calcium Phosphorus Magnesium Total Protein Albumin Urine WBC (Auto)
--- NOTE | 2019-02-20 13:23 | Progress Note ---
Assessment and Plan Cultures: Blood culture 02/18/19 - NGTD Urine culture 02/18/19 - NGTD Surgery culture 02/18/19 - normal skin pedro A/P: 43 yo F PMHx diabetes admitted with perforated pyloric ulcer 1. Septic shock secondary to abdominal perforation - s/p surgery on 02/18 with ex-lap, lavage, patch, and drain. Appreciate cultures taken by Dr. Crenshaw. Recommend continuing pip-tazo. With surgical source control, anticipate a short course of antibiotics post-operatively (4-5 days) assuming uncomplicated course. Off pressors. 2. DM2 3. PUD: s/p surgery. Follow up histopathology. Recs: - Continue IV pip-tazo 4.5g q8h (Day 2 of expected 4-5 day duration post-op) Tomy Kim MD, FACP [facility] ([facility]) M: [phone] O: [phone] F: [phone] Subjective Date of service: 02/20/19 Interval history: No fever. NG in place. Drowsy from pain meds. History limited. Objective - Exam Narrative Exam: Constitutional: drowsy from pain meds. No acute distress Head, Ears, Nose: Normocephalic, atraumatic. External ears, nose normal Eyes: Conjunctivae/corneas clear. No icterus. No ptosis. Neck: Supple, no meningeal signs Oral: dentition fair, no thrush Cardiovascular: S1, S2 normal. Respiratory: Good air entry, clear to auscultation bilaterally GI: Soft, mildly tender; bowel sounds very hypoactive No peritoneal signs. drain in place, serous fluid draining. incision c/d/i Musculoskeletal: No pedal edema, no cyanosis. Skin: No rash or abscess Hem/Lymphatic: No palpable cervical or supraclavicular nodes. No lymphangitis Psych: no agitation Neurological: drowsy from pain meds - Constitutional Vitals: Vital Signs Temp Pulse Resp BP Pulse Ox 99.2 F 112 H 20 107/65 99 02/20/19 12:00 02/20/19 13:00 02/20/19 13:00 02/20/19 13:00 02/20/19 12:15 Temperature -Last 24 Hours Temperature 99.2 F Temperature 97.6 F Temperature 98.4 F Temperature 98.4 F Temperature 98.3 F Temperature 98.0 F Temperature 99.3 F - Labs CBC & Chem 7: 02/19/19 05:20 02/19/19 16:32 Labs: Abnormal lab results 02/19/19 02/19/19 02/19/19 Range/Units 14:02 15:17 16:32 Chloride 113.3 H (98-107) mmol/L Carbon Dioxide 16 L (22-30) mmol/L Creatinine 0.5 L (0.7-1.2) mg/dL Glucose 199 H (65-100) mg/dL POC Glucose 123 H 127 H (70-105) Calcium 6.7 L (8.4-10.2) mg/dL 02/19/19 02/19/19 02/20/19 Range/Units 18:07 23:19 05:41 Chloride (98-107) mmol/L Carbon Dioxide (22-30) mmol/L Creatinine (0.7-1.2) mg/dL Glucose (65-100) mg/dL POC Glucose 204 H 202 H 135 H (70-105) Calcium (8.4-10.2) mg/dL 02/20/19 Range/Units 12:24 Chloride (98-107) mmol/L Carbon Dioxide (22-30) mmol/L Creatinine (0.7-1.2) mg/dL Glucose (65-100) mg/dL POC Glucose 153 H (70-105) Calcium (8.4-10.2) mg/dL
[2019-02-20 15:51] LABS: BUN/Creatinine Ratio 25; Blood Urea Nitrogen 10 mg/dL (7-17); Hemolysis Index 9
[2019-02-20] MEDS ORDERED: MAGNESIUM SULFATE 2GM/50ML 2 GM/50 ML BAG IV ONE (18:00)
[2019-02-20] MEDS ORDERED: SODIUM PHOSPHATE 45 MMOL in NACL 0.9% 500 ML 500 ML IV ONE (18:04)
[2019-02-21] MEDS: MORPHINE IV PRN ×5 (03:31→20:53)
[2019-02-21] MEDS: ZOSYN/NS 4.5GM/100ML 4.5 GM/100 ML VIAL IV SCH ×3 (05:00→22:27)
[2019-02-21] MEDS: NACL 0.45% 1000 ML 1,000 ML IV SCH ×3 (05:00→23:44)
[2019-02-21] MEDS: HumuLIN R SUB-Q SCH ×4 (06:19→17:46)
[2019-02-21 08:31] LABS: BUN/Creatinine Ratio 20; Blood Urea Nitrogen 8 mg/dL (7-17); Calcium 7.2 mg/dL (8.4-10.2); Hemolysis Index 3
[2019-02-21] MEDS ORDERED: KPHOS 30 MMOL in NACL 0.9% 500 ML 500 ML IV ONE (11:00)
--- NOTE | 2019-02-21 11:29 | Progress Note ---
Assessment and Plan 43 yo F S/P exploratory laparotomy, peritoneal lavage, minnie patch, placement of drain, L IJ TLC, POD 3 1. perforated pyloric ulcer with gross peritonitis 2. septic shock 2/2 #1 3. DKA Plan: Overall patient improving. Off pressors x24 hours. Less tachycardic. 1. neuro - prn pain control, change to q3h 2. CV - levophed off. monitor blood pressure. May dc central line 3. Resp - incentive spirometry, supplemental O2 4. GI - strict NPO, IVF, NGT to LCWS - DO NOT MANIPULATE, FLUSH, REMOVE, OR USE FOR MEDS. PPI BID. JEREMIAH drain - monitor output. Follow up pathology. UGI series today - contrast may be administered via NGT. Does not need TPN at this time. 5. - henry discontinued 6. ID - continue abx IV per ID. follow up OR cultures 7. Endo - insulin per DKA protocol 8. Musc - DVT ppx, OOB to chair/ambulate. Consult PT 9. FEN - continue IVF, NPO. repeat BMP, Mg,Phos daily. replace lytes Thank you, please call with questions. Subjective Date of service: 02/21/19 Narrative: Pt seen and examined. c/o abdominal pain near incision. No f/c. No n/v Objective Vital Signs - 12hr 02/20/19 02/20/19 02/21/19 23:30 23:45 00:00 Temperature 99.0 F Pulse Rate 106 H 103 H 104 H Respiratory 17 15 22 Rate Blood Pressure 107/65 105/64 109/65 O2 Sat by Pulse 94 94 99 Oximetry 02/21/19 02/21/19 02/21/19 00:15 00:30 00:45 Temperature Pulse Rate 102 H 102 H 103 H Respiratory 15 14 15 Rate Blood Pressure 106/62 102/62 109/65 O2 Sat by Pulse 94 93 93 Oximetry 02/21/19 02/21/19 02/21/19 01:00 01:15 01:30 Temperature Pulse Rate 100 H 100 H 106 H Respiratory 13 13 13 Rate Blood Pressure 105/62 101/63 111/72 O2 Sat by Pulse 94 92 Oximetry 02/21/19 02/21/19 02/21/19 01:45 02:00 02:15 Temperature Pulse Rate 99 H 100 H 100 H Respiratory 15 14 13 Rate Blood Pressure 114/68 106/68 108/67 O2 Sat by Pulse 93 94 94 Oximetry 02/21/19 02/21/19 02/21/19 02:30 02:45 03:00 Temperature Pulse Rate 103 H 102 H 105 H Respiratory 16 16 23 Rate Blood Pressure 113/72 119/71 119/71 O2 Sat by Pulse 93 93 94 Oximetry 02/21/19 02/21/19 02/21/19 03:15 03:30 03:45 Temperature Pulse Rate 102 H 103 H 101 H Respiratory 15 19 15 Rate Blood Pressure 111/66 117/67 105/62 O2 Sat by Pulse 94 94 93 Oximetry 02/21/19 02/21/19 02/21/19 04:00 04:15 04:30 Temperature 99.4 F Pulse Rate 106 H 104 H 102 H Respiratory 13 15 15 Rate Blood Pressure 110/68 110/67 112/65 O2 Sat by Pulse 93 94 94 Oximetry 02/21/19 02/21/19 02/21/19 04:45 05:00 05:15 Temperature Pulse Rate 103 H 100 H 99 H Respiratory 14 13 14 Rate Blood Pressure 106/65 110/67 112/68 O2 Sat by Pulse 95 93 94 Oximetry 02/21/19 02/21/19 02/21/19 05:30 05:45 06:00 Temperature Pulse Rate 98 H 98 H 100 H Respiratory 12 13 12 Rate Blood Pressure 110/68 115/68 114/63 O2 Sat by Pulse 94 94 94 Oximetry 02/21/19 02/21/19 02/21/19 06:15 06:30 06:45 Temperature Pulse Rate 98 H 105 H 99 H Respiratory 13 23 13 Rate Blood Pressure 102/57 115/64 101/57 O2 Sat by Pulse 95 92 97 Oximetry 02/21/19 02/21/19 02/21/19 07:00 07:15 07:30 Temperature Pulse Rate 98 H 103 H 97 H Respiratory 14 15 14 Rate Blood Pressure 107/64 119/71 107/68 O2 Sat by Pulse 97 94 Oximetry 02/21/19 02/21/19 02/21/19 07:45 08:00 08:15 Temperature Pulse Rate 97 H 103 H 104 H Respiratory 13 14 21 Rate Blood Pressure 104/67 116/76 115/76 O2 Sat by Pulse 97 Oximetry 02/21/19 02/21/19 02/21/19 08:30 08:45 09:00 Temperature Pulse Rate 101 H 105 H 101 H Respiratory 14 13 13 Rate Blood Pressure 108/68 108/72 109/65 O2 Sat by Pulse 93 93 93 Oximetry 02/21/19 02/21/19 02/21/19 09:15 09:30 09:45 Temperature Pulse Rate 105 H 101 H 100 H Respiratory 22 16 13 Rate Blood Pressure 109/65 116/69 110/67 O2 Sat by Pulse 92 93 94 Oximetry 02/21/19 02/21/19 02/21/19 10:00 10:15 10:30 Temperature Pulse Rate 106 H 100 H 104 H Respiratory 20 16 18 Rate Blood Pressure 120/70 115/70 115/71 O2 Sat by Pulse 94 94 93 Oximetry 02/21/19 10:45 Temperature Pulse Rate 103 H Respiratory 24 Rate Blood Pressure 109/69 O2 Sat by Pulse 92 Oximetry - General physical appearance Narrative Exam: Gen: Awake, alert, NAD ENT; NGT bilious CV; S1, S2+ Resp; even and unlabored Abd; soft, ND, mild TTP near midline incision. Jeremiah drain serous Ext: no c/c/e - Labs 02/19/19 05:20 02/21/19 07:47 Diabetes panel 02/20/19 02/21/19 Range/Units 14:56 07:47 Sodium 141 145 (137-145) mmol/L Potassium 3.7 3.4 L (3.6-5.0) mmol/L Chloride 110.7 H 111.4 H (98-107) mmol/L Carbon Dioxide 17 L 17 L (22-30) mmol/L BUN 10 8 (7-17) mg/dL Creatinine 0.4 L 0.4 L (0.7-1.2) mg/dL Glucose 148 H 154 H (65-100) mg/dL Calcium 7.0 L 7.2 L (8.4-10.2) mg/dL Calcium panel 02/20/19 02/21/19 Range/Units 14:56 07:47 Calcium 7.0 L 7.2 L (8.4-10.2) mg/dL Phosphorus 1.40 L D 1.80 L D (2.5-4.5) mg/dL Pituitary panel 02/20/19 02/21/19 Range/Units 14:56 07:47 Sodium 141 145 (137-145) mmol/L Potassium 3.7 3.4 L (3.6-5.0) mmol/L Chloride 110.7 H 111.4 H (98-107) mmol/L Carbon Dioxide 17 L 17 L (22-30) mmol/L BUN 10 8 (7-17) mg/dL Creatinine 0.4 L 0.4 L (0.7-1.2) mg/dL Glucose 148 H 154 H (65-100) mg/dL Calcium 7.0 L 7.2 L (8.4-10.2) mg/dL Adrenal panel 02/20/19 02/21/19 Range/Units 14:56 07:47 Sodium 141 145 (137-145) mmol/L Potassium 3.7 3.4 L (3.6-5.0) mmol/L Chloride 110.7 H 111.4 H (98-107) mmol/L Carbon Dioxide 17 L 17 L (22-30) mmol/L BUN 10 8 (7-17) mg/dL Creatinine 0.4 L 0.4 L (0.7-1.2) mg/dL Glucose 148 H 154 H (65-100) mg/dL Calcium 7.0 L 7.2 L (8.4-10.2) mg/dL
[2019-02-21] MEDS: PROTONIX IV SCH ×2 (11:48→22:28)
[2019-02-21] MEDS: LOVENOX SUB-Q SCH (11:48)
[2019-02-21] MEDS: LANTUS SUB-Q SCH (11:50)
--- NOTE | 2019-02-21 12:15 | Fluoroscopy Report ---
UPPER GI HISTORY: Peptic ulcer disease. Recent repair of peptic ulcer near the pylorus.. TECHNIQUE: Modified single and double contrast exam of the stomach and duodenum. FINDINGS: Approximately 200 cc of oral contrast was administered via the nasogastric tube. There is normal filling of the gastric cavity and duodenal sweep. No abnormality is identified in the region of the pylorus. No evidence for obstruction or extravasation of contrast agent. IMPRESSION: Unremarkable exam. No evidence for extravasation of contrast at the surgical site. Fluoroscopic time: 1 minutes Number of fluoroscopic images: 6 Signer Name: Wagner Guillen Jr, MD Signed: 02/21/2019 12:11 PM Workstation Name: [id number]
--- NOTE | 2019-02-21 12:23 | Event Note ---
Date: 02/21/19 Updates: 1. UGI series negative for leak. May dc NGT and start clear liquid diet. 2. Patient may be downgraded to surgical floor from surgical standpoint. 3. Needs to be OOB. PT consult ordered. 4. TLC may be removed once a second peripheral IV is obtained. 5. Helton catheter was ordered to be removed yesterday 02/20/19. Another order placed for it to be removed. Notified charge rn and Tia Message sent to Dr. Leyva
--- NOTE | 2019-02-21 12:32 | Progress Note ---
Assessment and Plan Impression: Diabetic ketoacidosis resolved Perforated gastric ulcer Peritonitis Sepsis/hypotension possibly volume depleted versus septic shock, resolved Recommendation: Continue with IV fluids. TPN in next 24 hours so. Antibiotics per ID DVT and GI prophylaxis Potential transfer to surgical floor Total critical care time 31 minute Subjective Date of service: 02/21/19 Interval history: Patient awake and responsive but somewhat confused. No respiratory distress. Objective Vital Signs - 12hr 02/21/19 02/21/19 02/21/19 00:45 01:00 01:15 Temperature Pulse Rate 103 H 100 H 100 H Respiratory 15 13 13 Rate Blood Pressure 109/65 105/62 101/63 O2 Sat by Pulse 93 94 Oximetry 02/21/19 02/21/19 02/21/19 01:30 01:45 02:00 Temperature Pulse Rate 106 H 99 H 100 H Respiratory 13 15 14 Rate Blood Pressure 111/72 114/68 106/68 O2 Sat by Pulse 92 93 94 Oximetry 02/21/19 02/21/19 02/21/19 02:15 02:30 02:45 Temperature Pulse Rate 100 H 103 H 102 H Respiratory 13 16 16 Rate Blood Pressure 108/67 113/72 119/71 O2 Sat by Pulse 94 93 93 Oximetry 02/21/19 02/21/19 02/21/19 03:00 03:15 03:30 Temperature Pulse Rate 105 H 102 H 103 H Respiratory 23 15 19 Rate Blood Pressure 119/71 111/66 117/67 O2 Sat by Pulse 94 94 94 Oximetry 02/21/19 02/21/19 02/21/19 03:45 04:00 04:15 Temperature 99.4 F Pulse Rate 101 H 106 H 104 H Respiratory 15 13 15 Rate Blood Pressure 105/62 110/68 110/67 O2 Sat by Pulse 93 93 94 Oximetry 02/21/19 02/21/19 02/21/19 04:30 04:45 05:00 Temperature Pulse Rate 102 H 103 H 100 H Respiratory 15 14 13 Rate Blood Pressure 112/65 106/65 110/67 O2 Sat by Pulse 94 95 93 Oximetry 02/21/19 02/21/19 02/21/19 05:15 05:30 05:45 Temperature Pulse Rate 99 H 98 H 98 H Respiratory 14 12 13 Rate Blood Pressure 112/68 110/68 115/68 O2 Sat by Pulse 94 94 94 Oximetry 08/02/21/19 02/21/19 06:00 06:15 06:30 Temperature Pulse Rate 100 H 98 H 105 H Respiratory 12 13 23 Rate Blood Pressure 114/63 102/57 115/64 O2 Sat by Pulse 94 95 92 Oximetry 02/21/19 02/21/19 02/21/19 06:45 07:00 07:15 Temperature Pulse Rate 99 H 98 H 103 H Respiratory 13 14 15 Rate Blood Pressure 101/57 107/64 119/71 O2 Sat by Pulse 97 97 94 Oximetry 02/21/19 02/21/19 02/21/19 07:30 07:45 08:00 Temperature Pulse Rate 97 H 97 H 103 H Respiratory 14 13 14 Rate Blood Pressure 107/68 104/67 116/76 O2 Sat by Pulse Oximetry 02/21/19 02/21/19 02/21/19 08:15 08:30 08:45 Temperature Pulse Rate 104 H 101 H 105 H Respiratory 21 14 13 Rate Blood Pressure 115/76 108/68 108/72 O2 Sat by Pulse 97 93 93 Oximetry 02/21/19 02/21/19 02/21/19 09:00 09:15 09:30 Temperature Pulse Rate 101 H 105 H 101 H Respiratory 13 22 16 Rate Blood Pressure 109/65 109/65 116/69 O2 Sat by Pulse 93 92 93 Oximetry 02/21/19 02/21/19 02/21/19 09:45 10:00 10:15 Temperature Pulse Rate 100 H 106 H 100 H Respiratory 13 20 16 Rate Blood Pressure 110/67 120/70 115/70 O2 Sat by Pulse 94 94 94 Oximetry 02/21/19 02/21/19 10:30 10:45 Temperature Pulse Rate 104 H 103 H Respiratory 18 24 Rate Blood Pressure 115/71 109/69 O2 Sat by Pulse 93 92 Oximetry Constitutional: no acute distress, alert Eyes: non-icteric ENT: oropharynx moist Neck: supple Effort: normal Ascultation: Bilateral: clear Cardiovascular: regular rate and rhythm Gastrointestinal: hypoactive bowel sounds, tender, non-distended Integumentary: normal Extremities: no cyanosis Neurologic: non-focal exam Psychiatric: mood appropriate CBC and BMP: 02/19/19 05:20 02/21/19 07:47 ABG, PT/INR, D-dimer: PT/INR, D-dimer PT 18.0 Sec. (12.2-14.9) H 02/18/19 18:00 INR 1.53 (0.87-1.13) H 02/18/19 18:00 Abnormal lab findings: Abnormal Labs 02/18/19 02/18/19 02/18/19 12:36 13:18 13:18 Hct 43.6 H MCV 99 H MCH MCHC Lymph % (Auto) 5.3 L Lymph # 0.2 L Seg Neutrophils % 89.0 H Lymphocytes % (Manual) Lymphocytes # (Manual) PT INR VBG pH Sodium 135 L Potassium 5.2 H Chloride 90.8 L Carbon Dioxide 16 L BUN 25 H Creatinine Glucose 988 H* POC Glucose > 500 H Hemoglobin A1c Lactic Acid Calcium Phosphorus Magnesium Total Protein 6.0 L Albumin 3.5 L Urine WBC (Auto) 02/18/19 02/18/19 02/18/19 13:18 13:18 15:34 Hct MCV MCH MCHC Lymph % (Auto) Lymph # Seg Neutrophils % Lymphocytes % (Manual) Lymphocytes # (Manual) PT INR VBG pH 7.319 L Sodium 133 L Potassium Chloride 97.5 L Carbon Dioxide 14 L BUN 21 H Creatinine Glucose 822 H* POC Glucose Hemoglobin A1c Lactic Acid Calcium Phosphorus 8.20 H Magnesium Total Protein Albumin Urine WBC (Auto) 02/18/19 02/18/19 02/18/19 15:43 15:43 15:54 Hct MCV MCH MCHC Lymph % (Auto) Lymph # Seg Neutrophils % Lymphocytes % (Manual) Lymphocytes # (Manual) PT INR VBG pH Sodium 134 L Potassium Chloride 94.7 L Carbon Dioxide 18 L BUN 21 H Creatinine Glucose 811 H* POC Glucose Hemoglobin A1c Lactic Acid 4.30 H* Calcium Phosphorus Magnesium Total Protein Albumin Urine WBC (Auto) 24.0 H 02/18/19 02/18/19 02/18/19 16:52 18:00 18:32 Hct MCV MCH MCHC Lymph % (Auto) Lymph # Seg Neutrophils % Lymphocytes % (Manual) Lymphocytes # (Manual) PT 18.0 H INR 1.53 H VBG pH Sodium Potassium Chloride Carbon Dioxide BUN Creatinine Glucose POC Glucose > 500 H > 500 H Hemoglobin A1c Lactic Acid Calcium Phosphorus Magnesium Total Protein Albumin Urine WBC (Auto) 02/18/19 02/18/19 02/18/19 18:38 19:47 21:05 Hct MCV MCH MCHC Lymph % (Auto) Lymph # Seg Neutrophils % Lymphocytes % (Manual) Lymphocytes # (Manual) PT INR VBG pH Sodium Potassium 3.5 L Chloride 108.8 H Carbon Dioxide 16 L BUN 21 H Creatinine Glucose 575 H* POC Glucose > 500 H 424 H Hemoglobin A1c Lactic Acid Calcium 6.1 L D Phosphorus Magnesium Total Protein Albumin Urine WBC (Auto) 02/18/19 02/18/19 02/18/19 22:09 22:29 22:29 Hct MCV MCH MCHC Lymph % (Auto) Lymph # Seg Neutrophils % Lymphocytes % (Manual) Lymphocytes # (Manual) PT INR VBG pH Sodium Potassium 3.5 L Chloride 111.9 H Carbon Dioxide 17 L BUN 18 H Creatinine 0.6 L Glucose 330 H POC Glucose 398 H Hemoglobin A1c 13.0 H Lactic Acid Calcium 6.4 L Phosphorus Magnesium Total Protein Albumin Urine WBC (Auto) 02/18/19 02/18/19 02/19/19 23:18 23:55 01:05 Hct MCV MCH MCHC Lymph % (Auto) Lymph # Seg Neutrophils % Lymphocytes % (Manual) Lymphocytes # (Manual) PT INR VBG pH Sodium Potassium Chloride Carbon Dioxide BUN Creatinine Glucose POC Glucose 361 H 314 H 238 H Hemoglobin A1c Lactic Acid Calcium Phosphorus Magnesium Total Protein Albumin Urine WBC (Auto) 02/19/19 02/19/19 02/19/19 02:09 03:18 04:40 Hct MCV MCH MCHC Lymph % (Auto) Lymph # Seg Neutrophils % Lymphocytes % (Manual) Lymphocytes # (Manual) PT INR VBG pH Sodium Potassium Chloride Carbon Dioxide BUN Creatinine Glucose POC Glucose 301 H 222 H 207 H Hemoglobin A1c Lactic Acid Calcium Phosphorus Magnesium Total Protein Albumin Urine WBC (Auto) 02/19/19 02/19/19 02/19/19 05:20 05:20 05:22 Hct MCV MCH 33 H MCHC 35 H Lymph % (Auto) Lymph # Seg Neutrophils % Lymphocytes % (Manual) 5.0 L Lymphocytes # (Manual) 0.4 L PT INR VBG pH Sodium Potassium Chloride 115.4 H Carbon Dioxide 17 L BUN 18 H Creatinine 0.5 L Glucose 120 H POC Glucose 176 H Hemoglobin A1c Lactic Acid Calcium 6.6 L Phosphorus 2.20 L D Magnesium 1.30 L Total Protein Albumin Urine WBC (Auto) 02/19/19 02/19/19 02/19/19 06:35 07:30 08:16 Hct MCV MCH MCHC Lymph % (Auto) Lymph # Seg Neutrophils % Lymphocytes % (Manual) Lymphocytes # (Manual) PT INR VBG pH Sodium Potassium Chloride 115.2 H Carbon Dioxide 16 L BUN Creatinine 0.5 L Glucose 129 H POC Glucose 131 H 138 H Hemoglobin A1c Lactic Acid Calcium 7.0 L Phosphorus Magnesium Total Protein Albumin Urine WBC (Auto) 02/19/19 02/19/19 02/19/19 09:22 10:04 11:11 Hct MCV MCH MCHC Lymph % (Auto) Lymph # Seg Neutrophils % Lymphocytes % (Manual) Lymphocytes # (Manual) PT INR VBG pH Sodium Potassium Chloride Carbon Dioxide BUN Creatinine Glucose POC Glucose 118 H 166 H 118 H Hemoglobin A1c Lactic Acid Calcium Phosphorus Magnesium Total Protein Albumin Urine WBC (Auto) 02/19/19 02/19/19 02/19/19 11:59 13:12 14:02 Hct MCV MCH MCHC Lymph % (Auto) Lymph # Seg Neutrophils % Lymphocytes % (Manual) Lymphocytes # (Manual) PT INR VBG pH Sodium Potassium Chloride Carbon Dioxide BUN Creatinine Glucose POC Glucose 123 H 148 H 123 H Hemoglobin A1c Lactic Acid Calcium Phosphorus Magnesium Total Protein Albumin Urine WBC (Auto) 02/19/19 02/19/19 02/19/19 15:17 16:32 18:07 Hct MCV MCH MCHC Lymph % (Auto) Lymph # Seg Neutrophils % Lymphocytes % (Manual) Lymphocytes # (Manual) PT INR VBG pH Sodium Potassium Chloride 113.3 H Carbon Dioxide 16 L BUN Creatinine 0.5 L Glucose 199 H POC Glucose 127 H 204 H Hemoglobin A1c Lactic Acid Calcium 6.7 L Phosphorus Magnesium Total Protein Albumin Urine WBC (Auto) 02/19/19 02/20/19 02/20/19 23:19 05:41 12:24 Hct MCV MCH MCHC Lymph % (Auto) Lymph # Seg Neutrophils % Lymphocytes % (Manual) Lymphocytes # (Manual) PT INR VBG pH Sodium Potassium Chloride Carbon Dioxide BUN Creatinine Glucose POC Glucose 202 H 135 H 153 H Hemoglobin A1c Lactic Acid Calcium Phosphorus Magnesium Total Protein Albumin Urine WBC (Auto) 02/20/19 02/20/19 02/21/19 14:56 18:00 00:04 Hct MCV MCH MCHC Lymph % (Auto) Lymph # Seg Neutrophils % Lymphocytes % (Manual) Lymphocytes # (Manual) PT INR VBG pH Sodium Potassium Chloride 110.7 H Carbon Dioxide 17 L BUN Creatinine 0.4 L Glucose 148 H POC Glucose 167 H 145 H Hemoglobin A1c Lactic Acid Calcium 7.0 L Phosphorus 1.40 L D Magnesium 1.60 L Total Protein Albumin Urine WBC (Auto) 02/21/19 02/21/19 02/21/19 05:55 07:47 12:23 Hct MCV MCH MCHC Lymph % (Auto) Lymph # Seg Neutrophils % Lymphocytes % (Manual) Lymphocytes # (Manual) PT INR VBG pH Sodium Potassium 3.4 L Chloride 111.4 H Carbon Dioxide 17 L BUN Creatinine 0.4 L Glucose 154 H POC Glucose 157 H 171 H Hemoglobin A1c Lactic Acid Calcium 7.2 L Phosphorus 1.80 L D Magnesium Total Protein Albumin Urine WBC (Auto)
--- NOTE | 2019-02-21 12:40 | Progress Note ---
Assessment and Plan Assessment and plan: 43F who pw abdominal pain found to have perforated viscus Septic shock Due to perforated viscous due to PUD sp ex lap, GS input appreciated Abx per ID, off pressors since 02/20 DKA (diabetic ketoacidoses), type 2 dm -now resolved, switched to subq insulin Perforated abdominal viscus sp ex lap, mgt per gs, GI series is neg for leaks PUD cont ppi Peptic ulcer disease IV protonix for now , henry was not removed yesterday despite dc order, dw RN central line to be removed after 2 peripherals are placed The high probability of a clinically significant, sudden or life threatening deterioration of the [endocrine and GI] system(s) required my full and direct attention, intervention and personal management. The aggregate critical care time was [33] minutes. This time is in addition to time spent performing reported procedures but includes the following: [] Data Review and interpretation [] Patient assessment and monitoring of vital signs [] Documentation [] Medication orders and management Hospitalist Physical - Constitutional Vitals: Temp Pulse Resp BP Pulse Ox 99.4 F 103 H 24 109/69 92 02/21/19 04:00 02/21/19 10:45 02/21/19 10:45 02/21/19 10:45 02/21/19 10:45 General appearance: Present: no acute distress, well-nourished Results - Labs CBC & Chem 7: 02/19/19 05:20 02/21/19 07:47 Labs: Laboratory Last Values WBC 7.2 K/mm3 (4.5-11.0) 02/19/19 05:20 RBC 4.00 M/mm3 (3.65-5.03) 02/19/19 05:20 Hgb 13.0 gm/dl (10.1-14.3) 02/19/19 05:20 Hct 37.4 % (30.3-42.9) D 02/19/19 05:20 MCV 94 fl (79-97) 02/19/19 05:20 MCH 33 pg (28-32) H 02/19/19 05:20 MCHC 35 % (30-34) H 02/19/19 05:20 RDW 13.3 % (13.2-15.2) 02/19/19 05:20 Plt Count 284 K/mm3 (140-440) 02/19/19 05:20 Lymph % (Auto) 5.3 % (13.4-35.0) L 02/18/19 13:18 [place] % (Auto) 5.6 % (0.0-7.3) 02/18/19 13:18 Eos % (Auto) 0.0 % (0.0-4.3) 02/18/19 13:18 Baso % (Auto) 0.1 % (0.0-1.8) 02/18/19 13:18 Lymph # 0.2 K/mm3 (1.2-5.4) L 02/18/19 13:18 [place] # 0.3 K/mm3 (0.0-0.8) 02/18/19 13:18 Eos # 0.0 K/mm3 (0.0-0.4) 02/18/19 13:18 Baso # 0.0 K/mm3 (0.0-0.1) 02/18/19 13:18 Add Manual Diff Complete 02/19/19 05:20 Total Counted 100 02/19/19 05:20 Seg Neutrophils % 89.0 % (40.0-70.0) H 02/18/19 13:18 Seg Neuts % (Manual) 49.0 % (40.0-70.0) 02/19/19 05:20 40.0 % 02/19/19 05:20 5.0 % (13.4-35.0) L 02/19/19 05:20 Reactive Lymphs % (Man) 0 % 02/19/19 05:20 5.0 % (0.0-7.3) 02/19/19 05:20 0 % (0.0-4.3) 02/19/19 05:20 1.0 % (0.0-1.8) 02/19/19 05:20 0 % 02/19/19 05:20 0 % 02/19/19 05:20 0 % 02/19/19 05:20 0 % 02/19/19 05:20 Nucleated RBC % Not Reportable 02/19/19 05:20 Seg Neutrophils # 4.2 K/mm3 (1.8-7.7) 02/18/19 13:18 Seg Neutrophils # Man 3.5 K/mm3 (1.8-7.7) 02/19/19 05:20 Band Neutrophils # 2.9 K/mm3 02/19/19 05:20 0.4 K/mm3 (1.2-5.4) L 02/19/19 05:20 Abs React Lymphs (Man) 0.0 K/mm3 02/19/19 05:20 0.4 K/mm3 (0.0-0.8) 02/19/19 05:20 0.0 K/mm3 (0.0-0.4) 02/19/19 05:20 0.1 K/mm3 (0.0-0.1) 02/19/19 05:20 0.0 K/mm3 02/19/19 05:20 0.0 K/mm3 02/19/19 05:20 0.0 K/mm3 02/19/19 05:20 Blast Cells # 0.0 K/mm3 02/19/19 05:20 WBC Morphology Not Reportable 02/19/19 05:20 Hypersegmented Neuts Not Reportable 02/19/19 05:20 Hyposegmented Neuts Not Reportable 02/19/19 05:20 Hypogranular Neuts Not Reportable 02/19/19 05:20 Not Reportable 02/19/19 05:20 Not Reportable 02/19/19 05:20 Not Reportable 02/19/19 05:20 Not Reportable 02/19/19 05:20 Not Reportable 02/19/19 05:20 Not Reportable 02/19/19 05:20 Consistent w auto 02/19/19 05:20 Not Reportable 02/19/19 05:20 Plt Clumps, EDTA Not Reportable 02/19/19 05:20 Not Reportable 02/19/19 05:20 Not Reportable 02/19/19 05:20 Not Reportable 02/19/19 05:20 Plt Morphology Comment Not Reportable 02/19/19 05:20 RBC Morphology Normal 02/19/19 05:20 Dimorphic RBCs Not Reportable 02/19/19 05:20 Not Reportable 02/19/19 05:20 Not Reportable 02/19/19 05:20 Not Reportable 02/19/19 05:20 Not Reportable 02/19/19 05:20 Not Reportable 02/19/19 05:20 Not Reportable 02/19/19 05:20 Not Reportable 02/19/19 05:20 Not Reportable 02/19/19 05:20 Not Reportable 02/19/19 05:20 Not Reportable 02/19/19 05:20 Not Reportable 02/19/19 05:20 Not Reportable 02/19/19 05:20 Not Reportable 02/19/19 05:20 Not Reportable 02/19/19 05:20 Not Reportable 02/19/19 05:20 Not Reportable 02/19/19 05:20 Not Reportable 02/19/19 05:20 Not Reportable 02/19/19 05:20 Not Reportable 02/19/19 05:20 Acanthocytes (Spur) Not Reportable 02/19/19 05:20 Rouleaux Not Reportable 02/19/19 05:20 Not Reportable 02/19/19 05:20 Not Reportable 02/19/19 05:20 Not Reportable 02/19/19 05:20 Not Reportable 02/19/19 05:20 Hem Pathologist Commnt No 02/19/19 05:20 PT 18.0 Sec. (12.2-14.9) H 02/18/19 18:00 INR 1.53 (0.87-1.13) H 02/18/19 18:00 APTT 30.1 Sec. (24.2-36.6) 02/18/19 18:00 VBG pH 7.319 (7.320-7.420) L 02/18/19 13:18 Sodium 145 mmol/L (137-145) 02/21/19 07:47 Potassium 3.4 mmol/L (3.6-5.0) L 02/21/19 07:47 Chloride 111.4 mmol/L (98-107) H 02/21/19 07:47 Carbon Dioxide 17 mmol/L (22-30) L 02/21/19 07:47 20 mmol/L 02/21/19 07:47 BUN 8 mg/dL (7-17) 02/21/19 07:47 0.4 mg/dL (0.7-1.2) L 02/21/19 07:47 Estimated GFR > 60 ml/min 02/21/19 07:47 20 % 02/21/19 07:47 Glucose 154 mg/dL (65-100) H 02/21/19 07:47 POC Glucose 171 (70-105) H 02/21/19 12:23 13.0 % (4-6) H 02/18/19 22:29 Lactic Acid 1.20 mmol/L (0.7-2.0) 02/19/19 05:20 Calcium 7.2 mg/dL (8.4-10.2) L 02/21/19 07:47 Phosphorus 1.80 mg/dL (2.5-4.5) L D 02/21/19 07:47 Magnesium 2.20 mg/dL (1.7-2.3) 02/21/19 07:47 0.50 mg/dL (0.1-1.2) 02/18/19 13:18 AST 22 units/L (5-40) 02/18/19 13:18 ALT 10 units/L (7-56) 02/18/19 13:18 58 units/L (35-129) 02/18/19 13:18 6.0 g/dL (6.3-8.2) L 02/18/19 13:18 3.5 g/dL (3.9-5) L 02/18/19 13:18 1.4 % 02/18/19 13:18 32 units/L (13-60) 02/18/19 13:18 HCG, Qual Negative (Negative) 02/18/19 13:18 Yellow (Yellow) 02/18/19 15:54 Clear (Clear) 02/18/19 15:54 5.0 (5.0-7.0) 02/18/19 15:54 Ur Specific [place] 1.028 (1.003-1.030) 02/18/19 15:54 30 mg/dl mg/dL (Negative) 02/18/19 15:54 >=500 mg/dL (Negative) 02/18/19 15:54 20 mg/dL (Negative) 02/18/19 15:54 Lg (Negative) 02/18/19 15:54 Neg (Negative) 02/18/19 15:54 Neg (Negative) 02/18/19 15:54 < 2.0 mg/dL (<2.0) 02/18/19 15:54 Ur Leukocyte Esterase Neg (Negative) 02/18/19 15:54 24.0 /HPF (0.0-6.0) H 02/18/19 15:54 6.0 /HPF (0.0-6.0) 02/18/19 15:54 U Epithel Cells (Auto) 1.0 /HPF (0-13.0) 02/18/19 15:54 Few /HPF 02/18/19 15:54 Blood Type A POSITIVE 02/18/19 18:00 Antibody Screen Negative 02/18/19 18:00 Active Medications - Current Medications Current Medications: Generic Name Dose Route Start Last Admin Trade Name Freq PRN Reason Stop Dose Admin Acetaminophen 650 mg 02/18/19 21:07 Tylenol PO Q4H PRN Pain MILD(1-3)/Fever >100.5/MANRIQUE Dextrose 50 ml 02/19/19 14:47 D50w (25gm) Syringe IV PRN PRN Hypoglycemia Enoxaparin Sodium 40 mg 02/19/19 10:00 02/21/19 11:48 Lovenox SUB-Q 40 mg DAILY ALDEN Administration Norepinephrine 4 mg in 250 mls @ 7.5 mls/hr 02/18/19 18:40 02/20/19 08:42 Levophed Drip 4 Mg/Ns 250 Ml IV 0 mcg/min TITR ALDEN 0 mls/hr Titration Protocol 2 MCG/MIN Piperacillin Sod/Tazobactam Sod 4.5 gm in 100 mls @ 200 mls/hr 02/19/19 05:30 02/21/19 05:46 Zosyn/Ns 4.5gm/100ml IV Infused Q8HR ALDEN Infusion Protocol Sodium Chloride 1,000 mls @ 125 mls/hr 02/19/19 15:00 02/21/19 05:00 Nacl 0.45% 1000 Ml IV 125 mls/hr DIRECT ALDEN Administration Potassium Phosphate 30 mmol/ 510 mls @ 83 mls/hr 02/21/19 11:00 02/21/19 11:49 Sodium Chloride IV 02/21/19 17:08 83 mls/hr ONCE ONE Administration Insulin Glargine 10 units 02/19/19 15:00 02/21/19 11:50 Lantus SUB-Q 10 units DAILY ALDEN Administration Insulin Human Regular 0 units 02/19/19 15:00 02/21/19 06:19 Humulin R SUB-Q Not Given Q6HR [facility] Protocol Metoclopramide HCl 10 mg 02/18/19 21:07 Reglan IV Q6H PRN Nausea And Vomiting Morphine Sulfate 2 mg 02/18/19 17:33 02/19/19 05:14 Morphine IV 2 mg Q4H PRN Administration Pain, Moderate (4-6) Morphine Sulfate 4 mg 02/20/19 12:20 02/21/19 11:49 Morphine IV 4 mg Q3H PRN Administration Pain , Severe (7-10) Ondansetron HCl 4 mg 02/18/19 21:07 02/20/19 23:16 Zofran IV 4 mg Q3H PRN Administration Nausea And Vomiting Pantoprazole Sodium 40 mg 02/19/19 11:00 02/21/19 11:48 Protonix IV 40 mg BID ALDEN Administration Sodium Chloride 10 ml 02/19/19 10:00 02/20/19 21:40 Sodium Chloride Flush Syringe 10 Ml IV 10 ml BID ALDEN Administration Sodium Chloride 10 ml 02/19/19 05:06 Sodium Chloride Flush Syringe 10 Ml IV PRN PRN LINE FLUSH Nutrition/Malnutrition Assess - Dietary Evaluation Nutrition/Malnutrition Findings: Nutrition Notes Start: 02/20/19 13:15 Freq: Status: Active Protocol: Document 02/20/19 13:15 LP (Rec: 02/20/19 13:19 LP [id number]) Nutrition Notes Need for Assessment generated from: MD Order Initial or Follow up Assessment Current Diagnosis Diabetes,Sepsis Other Pertinent Diagnosis Perforated ulcer S/P exp lap Current Diet NPO Labs/Tests A1c 13 Pertinent Medications Lantus, Levophed Height 5 ft Weight 62.9 kg [place] Body Weight (kg) 45.45 BMI 27.1 Subjective/Other Information Consult for TPN. Pt with NGT to LIS. GI does not want TPN at this time. Burn Absent Trauma Absent Minimum of two criteria No #1 Nutrition Diagnosis Inadequate oral intake Etiology altered GI function As Evidenced by Signs and Symptoms Pt with NGT to LIS and unable to consume PO at this time Is patient on ventilator? No Is Patient Ambulatory and/or Out of Bed No REE-([facility]-confined to bed) [phone] Calculation Used for Recommendations [facility] Additional Notes Protein needs are 75-126g (1.2 -2g/kg) Fluid needs are 1ml/kcal Nutrition Intervention Change Diet Order: TF VS PPN Goal #1 TF VS PPN Anticipated Discharge Needs: Unable to determine at this time Follow-Up By: 02/22/19 Additional Comments Follow for TF VS PPN
[2019-02-21] MEDS: SODIUM CHLORIDE FLUSH SYRINGE 10 ML IV SCH ×2 (13:18→22:28)
--- NOTE | 2019-02-21 14:22 | Progress Note ---
Assessment and Plan Cultures: Blood culture 02/18/19 - NGTD Urine culture 02/18/19 - NGTD Surgery culture 02/18/19 - normal skin pedro A/P: 43 yo F PMHx diabetes admitted with perforated pyloric ulcer 1. Septic shock secondary to abdominal perforation - s/p surgery on 02/18 with ex-lap, lavage, patch, and drain. Recommend continuing pip-tazo. With surgical source control, anticipate a short course of antibiotics post-operatively (4-5 days) assuming uncomplicated course. Remains off pressors. 2. DM2 3. PUD: s/p surgery. Follow up histopathology. Recs: - Continue IV pip-tazo 4.5g q8h (Day 3 of expected 4-5 day duration post-op) - CBC ordered for AM Tomy Kim MD, FACP [facility] ([facility] M: [phone] O: [phone] F: [phone] Subjective Date of service: 02/21/19 Interval history: No fever. Got NG tube removed. Per RN, passing gas, no BM. Diet being gradually advanced. Objective - Exam Narrative Exam: Constitutional: sleepy from pain meds, easily awakened. No acute distress Head, Ears, Nose: Normocephalic, atraumatic. External ears, nose normal Eyes: Conjunctivae/corneas clear. No icterus. No ptosis. Neck: Supple, no meningeal signs Oral: dentition fair, no thrush Cardiovascular: S1, S2 normal. Respiratory: Good air entry, clear to auscultation bilaterally GI: Soft, mildly tender; bowel sounds +. Drain in place, serous fluid draining. incision c/d/i Musculoskeletal: No pedal edema, no cyanosis. Skin: No rash or abscess Hem/Lymphatic: No palpable cervical or supraclavicular nodes. No lymphangitis Psych: no agitation Neurological: sleepy from pain meds, easily awakened - Constitutional Vitals: Vital Signs Temp Pulse Resp BP Pulse Ox 99.1 F 100 H 13 109/74 99 02/21/19 12:00 02/21/19 13:00 02/21/19 13:00 02/21/19 13:00 02/21/19 13:00 Temperature -Last 24 Hours Temperature 99.1 F Temperature 99.2 F Temperature 99.4 F Temperature 99.0 F Temperature 97.6 F Temperature 99.3 F - Labs CBC & Chem 7: 02/19/19 05:20 02/21/19 07:47 Labs: Abnormal lab results 02/20/19 02/20/19 02/21/19 Range/Units 14:56 18:00 00:04 Potassium (3.6-5.0) mmol/L Chloride 110.7 H (98-107) mmol/L Carbon Dioxide 17 L (22-30) mmol/L Creatinine 0.4 L (0.7-1.2) mg/dL Glucose 148 H (65-100) mg/dL POC Glucose 167 H 145 H (70-105) Calcium 7.0 L (8.4-10.2) mg/dL Phosphorus 1.40 L D (2.5-4.5) mg/dL Magnesium 1.60 L (1.7-2.3) mg/dL 02/21/19 02/21/19 02/21/19 Range/Units 05:55 07:47 12:23 Potassium 3.4 L (3.6-5.0) mmol/L Chloride 111.4 H (98-107) mmol/L Carbon Dioxide 17 L (22-30) mmol/L Creatinine 0.4 L (0.7-1.2) mg/dL Glucose 154 H (65-100) mg/dL POC Glucose 157 H 171 H (70-105) Calcium 7.2 L (8.4-10.2) mg/dL Phosphorus 1.80 L D (2.5-4.5) mg/dL Magnesium (1.7-2.3) mg/dL - Imaging and cardiology Abdominal x-ray: report reviewed, image reviewed (UGI series shows no contrast extravasation.)
[2019-02-22] MEDS: HumuLIN R SUB-Q SCH ×4 (00:51→18:42)
[2019-02-22] MEDS: MORPHINE IV PRN ×4 (00:55→21:28)
[2019-02-22] MEDS: ZOSYN/NS 4.5GM/100ML 4.5 GM/100 ML VIAL IV SCH ×3 (06:12→22:26)
[2019-02-22 07:07] LABS: Hematocrit 21.8 % (30.3-42.9); Hemoglobin 7.6 gm/dl (10.1-14.3); Mean Corpuscular HGB Conc 35 % (30-34); Mean Corpuscular Volume 93 fl (79-97); Platelet Count 180 K/mm3 (140-440); Red Blood Count 2.35 M/mm3 (3.65-5.03); Red Cell Distribution Width 13.1 % (13.2-15.2)
--- NOTE | 2019-02-22 09:47 | Progress Note ---
Assessment and Plan Cultures: Blood culture 02/18/19 - NGTD Urine culture 02/18/19 - NGTD Surgery culture 02/18/19 - normal skin pedro A/P: 43 yo F PMHx diabetes admitted with perforated pyloric ulcer 1. Septic shock secondary to abdominal perforation - s/p surgery on 02/18 with ex-lap, lavage, patch, and drain. Recommend continuing pip-tazo. With surgical source control, anticipate a short course of antibiotics post-operatively (4-5 days) assuming uncomplicated course. Remains off pressors. 2. DM2 3. PUD: s/p surgery. Follow up histopathology 4. H. Pylori: on PPI, amoxicillin and clarithromycin. Dr Crenshaw following. . Recs: - Continue IV pip-tazo 4.5g q8h, D4 of D5 [facility] M: [phone] O:[phone] Subjective Date of service: 02/22/19 Interval history: Patient seen and examine. Asleep. Difficult to arouse. No fever. Objective - Exam Narrative Exam: Constitutional: Asleep. Difficult to arouse, analgesics given. Head, Ears, Nose: Normocephalic, atraumatic. External ears, nose normal Eyes: Conjunctivae/corneas clear. No icterus. No ptosis. Neck: Supple, no meningeal signs Oral: dentition fair, no thrush Cardiovascular: S1, S2 normal. Respiratory: Good air entry, clear to auscultation bilaterally GI: Soft, mildly tender; bowel sounds +. Drain in place, serous fluid draining. incision c/d/i Musculoskeletal: No pedal edema, no cyanosis. Skin: No rash or abscess Hem/Lymphatic: No palpable cervical or supraclavicular nodes. No lymphangitis Psych: no agitation Neurological: sleepy from pain meds, easily awakened - Constitutional Vitals: Vital Signs Temp Pulse Resp BP Pulse Ox 99 F 98 H 28 H 110/68 97 02/22/19 08:00 02/22/19 08:00 02/22/19 08:00 02/22/19 08:00 02/22/19 08:00 Temperature -Last 24 Hours Temperature 99 F Temperature 98.3 F Temperature 99.0 F Temperature 98.6 F Temperature 98.6 F Temperature 99.1 F - Labs CBC & Chem 7: 02/22/19 09:31 02/22/19 09:31 Labs: Abnormal lab results 02/21/19 02/21/19 02/22/19 Range/Units 12:23 17:08 00:25 RBC (3.65-5.03) M/mm3 Hgb (10.1-14.3) gm/dl Hct (30.3-42.9) % MCHC (30-34) % RDW (13.2-15.2) % POC Glucose 171 H 211 H 329 H (70-105) 02/22/19 02/22/19 Range/Units 06:10 06:22 RBC 2.35 L (3.65-5.03) M/mm3 Hgb 7.6 L (10.1-14.3) gm/dl Hct 21.8 L (30.3-42.9) % MCHC 35 H (30-34) % RDW 13.1 L (13.2-15.2) % POC Glucose 229 H (70-105)
[2019-02-22 09:59] LABS: Hemoglobin 8.9 gm/dl (10.1-14.3); Mean Corpuscular HGB Conc 36 % (30-34); Mean Corpuscular Volume 92 fl (79-97); Platelet Count 185 K/mm3 (140-440); Red Blood Count 2.71 M/mm3 (3.65-5.03); Red Cell Distribution Width 13.2 % (13.2-15.2)
[2019-02-22 10:10] LABS: BUN/Creatinine Ratio 10; Blood Urea Nitrogen 4 mg/dL (7-17); Calcium 7.7 mg/dL (8.4-10.2); Hemolysis Index 1
--- NOTE | 2019-02-22 11:48 | Progress Note ---
Assessment and Plan Impression: Diabetic ketoacidosis resolved Perforated gastric ulcer Peritonitis Sepsis/hypotension possibly volume depleted versus septic shock, resolved Recommendation: Continue with IV fluids. TPN in next 24 hours so. Antibiotics per ID DVT and GI prophylaxis Pulmonary coulter stable and out of ICU. Will sign off needed pleased contact us Subjective Date of service: 02/22/19 Interval history: Patient awake and responsive. No respiratory distress. Objective Vital Signs - 12hr 02/22/19 02/22/19 02/22/19 00:05 04:51 08:00 Temperature 99.0 F 98.3 F 99 F Pulse Rate 100 H 96 H 98 H Respiratory 18 18 28 H Rate Blood Pressure 115/62 114/57 Blood Pressure 110/68 [Right] O2 Sat by Pulse 97 99 97 Oximetry Constitutional: no acute distress, alert Eyes: non-icteric ENT: oropharynx moist Neck: supple Effort: normal Ascultation: Bilateral: clear Cardiovascular: regular rate and rhythm Gastrointestinal: hypoactive bowel sounds, tender, non-distended Integumentary: normal Extremities: no cyanosis Neurologic: non-focal exam Psychiatric: mood appropriate CBC and BMP: 02/22/19 09:31 02/22/19 09:31 ABG, PT/INR, D-dimer: PT/INR, D-dimer PT 18.0 Sec. (12.2-14.9) H 02/18/19 18:00 INR 1.53 (0.87-1.13) H 02/18/19 18:00 Abnormal lab findings: Abnormal Labs 02/18/19 02/18/19 02/18/19 12:36 13:18 13:18 RBC Hgb Hct 43.6 H MCV 99 H MCH MCHC RDW Lymph % (Auto) 5.3 L Lymph # 0.2 L Seg Neutrophils % 89.0 H Lymphocytes % (Manual) Lymphocytes # (Manual) PT INR VBG pH Sodium 135 L Potassium 5.2 H Chloride 90.8 L Carbon Dioxide 16 L BUN 25 H Creatinine Glucose 988 H* POC Glucose > 500 H Hemoglobin A1c Lactic Acid Calcium Phosphorus Magnesium Total Protein 6.0 L Albumin 3.5 L Urine WBC (Auto) 02/18/19 02/18/19 02/18/19 13:18 13:18 15:34 RBC Hgb Hct MCV MCH MCHC RDW Lymph % (Auto) Lymph # Seg Neutrophils % Lymphocytes % (Manual) Lymphocytes # (Manual) PT INR VBG pH 7.319 L Sodium 133 L Potassium Chloride 97.5 L Carbon Dioxide 14 L BUN 21 H Creatinine Glucose 822 H* POC Glucose Hemoglobin A1c Lactic Acid Calcium Phosphorus 8.20 H Magnesium Total Protein Albumin Urine WBC (Auto) 02/18/19 02/18/19 02/18/19 15:43 15:43 15:54 RBC Hgb Hct MCV MCH MCHC RDW Lymph % (Auto) Lymph # Seg Neutrophils % Lymphocytes % (Manual) Lymphocytes # (Manual) PT INR VBG pH Sodium 134 L Potassium Chloride 94.7 L Carbon Dioxide 18 L BUN 21 H Creatinine Glucose 811 H* POC Glucose Hemoglobin A1c Lactic Acid 4.30 H* Calcium Phosphorus Magnesium Total Protein Albumin Urine WBC (Auto) 24.0 H 02/18/19 02/18/19 02/18/19 16:52 18:00 18:32 RBC Hgb Hct MCV MCH MCHC RDW Lymph % (Auto) Lymph # Seg Neutrophils % Lymphocytes % (Manual) Lymphocytes # (Manual) PT 18.0 H INR 1.53 H VBG pH Sodium Potassium Chloride Carbon Dioxide BUN Creatinine Glucose POC Glucose > 500 H > 500 H Hemoglobin A1c Lactic Acid Calcium Phosphorus Magnesium Total Protein Albumin Urine WBC (Auto) 02/18/19 02/18/19 02/18/19 18:38 19:47 21:05 RBC Hgb Hct MCV MCH MCHC RDW Lymph % (Auto) Lymph # Seg Neutrophils % Lymphocytes % (Manual) Lymphocytes # (Manual) PT INR VBG pH Sodium Potassium 3.5 L Chloride 108.8 H Carbon Dioxide 16 L BUN 21 H Creatinine Glucose 575 H* POC Glucose > 500 H 424 H Hemoglobin A1c Lactic Acid Calcium 6.1 L D Phosphorus Magnesium Total Protein Albumin Urine WBC (Auto) 02/18/19 02/18/19 02/18/19 22:09 22:29 22:29 RBC Hgb Hct MCV MCH MCHC RDW Lymph % (Auto) Lymph # Seg Neutrophils % Lymphocytes % (Manual) Lymphocytes # (Manual) PT INR VBG pH Sodium Potassium 3.5 L Chloride 111.9 H Carbon Dioxide 17 L BUN 18 H Creatinine 0.6 L Glucose 330 H POC Glucose 398 H Hemoglobin A1c 13.0 H Lactic Acid Calcium 6.4 L Phosphorus Magnesium Total Protein Albumin Urine WBC (Auto) 02/18/19 02/18/19 02/19/19 23:18 23:55 01:05 RBC Hgb Hct MCV MCH MCHC RDW Lymph % (Auto) Lymph # Seg Neutrophils % Lymphocytes % (Manual) Lymphocytes # (Manual) PT INR VBG pH Sodium Potassium Chloride Carbon Dioxide BUN Creatinine Glucose POC Glucose 361 H 314 H 238 H Hemoglobin A1c Lactic Acid Calcium Phosphorus Magnesium Total Protein Albumin Urine WBC (Auto) 02/19/19 02/19/19 02/19/19 02:09 03:18 04:40 RBC Hgb Hct MCV MCH MCHC RDW Lymph % (Auto) Lymph # Seg Neutrophils % Lymphocytes % (Manual) Lymphocytes # (Manual) PT INR VBG pH Sodium Potassium Chloride Carbon Dioxide BUN Creatinine Glucose POC Glucose 301 H 222 H 207 H Hemoglobin A1c Lactic Acid Calcium Phosphorus Magnesium Total Protein Albumin Urine WBC (Auto) 02/19/19 02/19/19 02/19/19 05:20 05:20 05:22 RBC Hgb Hct MCV MCH 33 H MCHC 35 H RDW Lymph % (Auto) Lymph # Seg Neutrophils % Lymphocytes % (Manual) 5.0 L Lymphocytes # (Manual) 0.4 L PT INR VBG pH Sodium Potassium Chloride 115.4 H Carbon Dioxide 17 L BUN 18 H Creatinine 0.5 L Glucose 120 H POC Glucose 176 H Hemoglobin A1c Lactic Acid Calcium 6.6 L Phosphorus 2.20 L D Magnesium 1.30 L Total Protein Albumin Urine WBC (Auto) 02/19/19 02/19/19 02/19/19 06:35 07:30 08:16 RBC Hgb Hct MCV MCH MCHC RDW Lymph % (Auto) Lymph # Seg Neutrophils % Lymphocytes % (Manual) Lymphocytes # (Manual) PT INR VBG pH Sodium Potassium Chloride 115.2 H Carbon Dioxide 16 L BUN Creatinine 0.5 L Glucose 129 H POC Glucose 131 H 138 H Hemoglobin A1c Lactic Acid Calcium 7.0 L Phosphorus Magnesium Total Protein Albumin Urine WBC (Auto) 02/19/19 02/19/19 02/19/19 09:22 10:04 11:11 RBC Hgb Hct MCV MCH MCHC RDW Lymph % (Auto) Lymph # Seg Neutrophils % Lymphocytes % (Manual) Lymphocytes # (Manual) PT INR VBG pH Sodium Potassium Chloride Carbon Dioxide BUN Creatinine Glucose POC Glucose 118 H 166 H 118 H Hemoglobin A1c Lactic Acid Calcium Phosphorus Magnesium Total Protein Albumin Urine WBC (Auto) 02/19/19 02/19/19 02/19/19 11:59 13:12 14:02 RBC Hgb Hct MCV MCH MCHC RDW Lymph % (Auto) Lymph # Seg Neutrophils % Lymphocytes % (Manual) Lymphocytes # (Manual) PT INR VBG pH Sodium Potassium Chloride Carbon Dioxide BUN Creatinine Glucose POC Glucose 123 H 148 H 123 H Hemoglobin A1c Lactic Acid Calcium Phosphorus Magnesium Total Protein Albumin Urine WBC (Auto) 02/19/19 02/19/19 02/19/19 15:17 16:32 18:07 RBC Hgb Hct MCV MCH MCHC RDW Lymph % (Auto) Lymph # Seg Neutrophils % Lymphocytes % (Manual) Lymphocytes # (Manual) PT INR VBG pH Sodium Potassium Chloride 113.3 H Carbon Dioxide 16 L BUN Creatinine 0.5 L Glucose 199 H POC Glucose 127 H 204 H Hemoglobin A1c Lactic Acid Calcium 6.7 L Phosphorus Magnesium Total Protein Albumin Urine WBC (Auto) 02/19/19 02/20/19 02/20/19 23:19 05:41 12:24 RBC Hgb Hct MCV MCH MCHC RDW Lymph % (Auto) Lymph # Seg Neutrophils % Lymphocytes % (Manual) Lymphocytes # (Manual) PT INR VBG pH Sodium Potassium Chloride Carbon Dioxide BUN Creatinine Glucose POC Glucose 202 H 135 H 153 H Hemoglobin A1c Lactic Acid Calcium Phosphorus Magnesium Total Protein Albumin Urine WBC (Auto) 02/20/19 02/20/19 02/21/19 14:56 18:00 00:04 RBC Hgb Hct MCV MCH MCHC RDW Lymph % (Auto) Lymph # Seg Neutrophils % Lymphocytes % (Manual) Lymphocytes # (Manual) PT INR VBG pH Sodium Potassium Chloride 110.7 H Carbon Dioxide 17 L BUN Creatinine 0.4 L Glucose 148 H POC Glucose 167 H 145 H Hemoglobin A1c Lactic Acid Calcium 7.0 L Phosphorus 1.40 L D Magnesium 1.60 L Total Protein Albumin Urine WBC (Auto) 02/21/19 02/21/19 02/21/19 05:55 07:47 12:23 RBC Hgb Hct MCV MCH MCHC RDW Lymph % (Auto) Lymph # Seg Neutrophils % Lymphocytes % (Manual) Lymphocytes # (Manual) PT INR VBG pH Sodium Potassium 3.4 L Chloride 111.4 H Carbon Dioxide 17 L BUN Creatinine 0.4 L Glucose 154 H POC Glucose 157 H 171 H Hemoglobin A1c Lactic Acid Calcium 7.2 L Phosphorus 1.80 L D Magnesium Total Protein Albumin Urine WBC (Auto) 02/21/19 02/22/19 02/22/19 17:08 00:25 06:10 RBC Hgb Hct MCV MCH MCHC RDW Lymph % (Auto) Lymph # Seg Neutrophils % Lymphocytes % (Manual) Lymphocytes # (Manual) PT INR VBG pH Sodium Potassium Chloride Carbon Dioxide BUN Creatinine Glucose POC Glucose 211 H 329 H 229 H Hemoglobin A1c Lactic Acid Calcium Phosphorus Magnesium Total Protein Albumin Urine WBC (Auto) 02/22/19 02/22/19 02/22/19 06:22 09:31 09:31 RBC 2.35 L 2.71 L Hgb 7.6 L 8.9 L Hct 21.8 L 25.0 L MCV MCH 33 H MCHC 35 H 36 H RDW 13.1 L Lymph % (Auto) Lymph # Seg Neutrophils % Lymphocytes % (Manual) Lymphocytes # (Manual) PT INR VBG pH Sodium Potassium 3.0 L Chloride 108.4 H Carbon Dioxide BUN 4 L Creatinine 0.4 L Glucose 165 H POC Glucose Hemoglobin A1c Lactic Acid Calcium 7.7 L Phosphorus 0.80 L* D Magnesium Total Protein Albumin Urine WBC (Auto)
[2019-02-22] MEDS: LOVENOX SUB-Q SCH (11:50)
[2019-02-22] MEDS: PROTONIX IV SCH ×2 (11:50→21:38)
[2019-02-22] MEDS ORDERED: KPHOS 40 MMOL in NACL 0.9% 500 ML 500 ML IV ONE (12:00)
[2019-02-22] MEDS: LANTUS SUB-Q SCH (12:17)
[2019-02-22] MEDS: SODIUM CHLORIDE FLUSH SYRINGE 10 ML IV SCH (12:19)
--- NOTE | 2019-02-22 13:32 | Progress Note ---
Assessment and Plan 43 yo F S/P exploratory laparotomy, peritoneal lavage, minnie patch, placement of drain, L IJ TLC, POD 4 1. perforated pyloric ulcer with gross peritonitis 2. septic shock 2/2 #1 3. DKA Plan: 1. prn pain control - switch to oral 2. monitor Hb - no active signs of bleeding 3. IS/pulm toilet 4. c/w clear liquid diet 5. path - h pylori positive - will start amoxicillin and clarithromycin. Pt already on PPI 6. continue abx IV per ID 7. insulin coverage for DM 8. DVT ppx 9. aggressive electrolyte replacement. repeat bmp, phos this evening 20:00 10. PT/OOB Thank you, please call with questions. Subjective Date of service: 02/22/19 Narrative: Pt seen and examined. c/o upper abdominal pain. No n/v. Tolerating clear liquid diet. Objective Vital Signs - 12hr 02/22/19 02/22/19 02/22/19 04:51 08:00 12:00 Temperature 98.3 F 99 F 99.3 F Pulse Rate 96 H 98 H 93 H Respiratory 18 28 H 26 H Rate Blood Pressure 114/57 Blood Pressure 110/68 113/72 [Right] O2 Sat by Pulse 99 97 97 Oximetry - General physical appearance Narrative Exam: Gen: AAOx3. NAD CV; S1, S2+ resp; even and unlabored Abd: soft, ND, mild periincisional TTP. incision c/d/i. Bryson drain serous. Ext: no c/c/e - Labs 02/22/19 09:31 02/22/19 09:31 Diabetes panel 02/22/19 Range/Units 09:31 Sodium 142 (137-145) mmol/L Potassium 3.0 L (3.6-5.0) mmol/L Chloride 108.4 H (98-107) mmol/L Carbon Dioxide 26 D (22-30) mmol/L BUN 4 L (7-17) mg/dL Creatinine 0.4 L (0.7-1.2) mg/dL Glucose 165 H (65-100) mg/dL Calcium 7.7 L (8.4-10.2) mg/dL Calcium panel 02/22/19 Range/Units 09:31 Calcium 7.7 L (8.4-10.2) mg/dL Phosphorus 0.80 L* D (2.5-4.5) mg/dL Pituitary panel 02/22/19 Range/Units 09:31 Sodium 142 (137-145) mmol/L Potassium 3.0 L (3.6-5.0) mmol/L Chloride 108.4 H (98-107) mmol/L Carbon Dioxide 26 D (22-30) mmol/L BUN 4 L (7-17) mg/dL Creatinine 0.4 L (0.7-1.2) mg/dL Glucose 165 H (65-100) mg/dL Calcium 7.7 L (8.4-10.2) mg/dL Adrenal panel 02/22/19 Range/Units 09:31 Sodium 142 (137-145) mmol/L Potassium 3.0 L (3.6-5.0) mmol/L Chloride 108.4 H (98-107) mmol/L Carbon Dioxide 26 D (22-30) mmol/L BUN 4 L (7-17) mg/dL Creatinine 0.4 L (0.7-1.2) mg/dL Glucose 165 H (65-100) mg/dL Calcium 7.7 L (8.4-10.2) mg/dL
--- NOTE | 2019-02-22 15:32 | Progress Note ---
Assessment and Plan Critical care statement The high probability of a clinically significant ,sudden or life threatening deterioration of pulmonary cardiac renal systems required my full and direct attention intervention and personal management .The aggregate critical care time was 40 minutes.This time is in addition to time spent performing reported procedures but includes the following Data review and interpretation Patient assesment and monitoring of vital signs Documentation Medication orderes and management - Patient Problems (1) Septic shock Current Visit: Yes Status: Deleted Plan to address problem: Due to perforated viscous probably PUD given the previous CT abdomen in October 2017 IV fluids and IV abx and pressors Surgery consulted (2) DKA (diabetic ketoacidoses) Current Visit: Yes Status: Deleted Qualifiers: Diabetes mellitus type: type 2 Plan to address problem: DKA protocol IV insulin initieated Electrolyte management (3) Perforated abdominal viscus Current Visit: Yes Status: Deleted Plan to address problem: Going to surgery from ED Patient is unstable but needs emergent surgery. (4) Peptic ulcer disease Current Visit: Yes Status: Deleted Plan to address problem: IV protonix for now (5) IDDM (insulin dependent diabetes mellitus) Current Visit: Yes Status: Deleted Plan to address problem: Discharge on Insulin 70/30 bid or basal bolus regimen. Will defer to primary team (6) DVT prophylaxis Current Visit: Yes Status: Deleted Plan to address problem: On Scd's and GI prophylaxis Subjective Date of service: 02/22/19 Principal diagnosis: Perforated Abdominal pUD Interval history: Post op patient doing well Objective - Constitutional Vitals: Vital Signs - 12hr 02/22/19 02/22/19 02/22/19 04:51 08:00 12:00 Temperature 98.3 F 99 F 99.3 F Pulse Rate 96 H 98 H 93 H Respiratory 18 28 H 26 H Rate Blood Pressure 114/57 Blood Pressure 110/68 113/72 [Right] O2 Sat by Pulse 99 97 97 Oximetry General appearance: Present: no acute distress, well-nourished - EENT Eyes: PERRL, EOM intact ENT: hearing intact, clear oral mucosa Ears: bilateral: normal - Neck Neck: supple, normal ROM - Respiratory Respiratory effort: normal Respiratory: bilateral: CTA - Breasts Breasts: normal - Cardiovascular Rhythm: regular Heart Sounds: Present: S1 & S2. Absent: gallop, rub Extremities: pulses intact, No edema, normal color, Full ROM - Gastrointestinal General gastrointestinal: Present: soft, non-tender, non-distended, normal bowel sounds - Genitourinary Female genitourinary: normal - Integumentary Integumentary: clear, warm, dry - Musculoskeletal Musculoskeletal: 1, strength equal bilaterally - Neurologic Neurologic: moves all extremities - Psychiatric Psychiatric: memory intact, appropriate mood/affect, intact judgment & insight - Labs CBC & Chem 7: 02/22/19 09:31 02/24/19 07:53 Labs: Abnormal lab results 02/21/19 02/22/19 02/22/19 Range/Units 17:08 00:25 06:10 RBC (3.65-5.03) M/mm3 Hgb (10.1-14.3) gm/dl Hct (30.3-42.9) % MCH (28-32) pg MCHC (30-34) % RDW (13.2-15.2) % Potassium (3.6-5.0) mmol/L Chloride (98-107) mmol/L BUN (7-17) mg/dL Creatinine (0.7-1.2) mg/dL Glucose (65-100) mg/dL POC Glucose 211 H 329 H 229 H (70-105) Calcium (8.4-10.2) mg/dL Phosphorus (2.5-4.5) mg/dL 02/22/19 02/22/19 02/22/19 Range/Units 06:22 09:31 09:31 RBC 2.35 L 2.71 L (3.65-5.03) M/mm3 Hgb 7.6 L 8.9 L (10.1-14.3) gm/dl Hct 21.8 L 25.0 L (30.3-42.9) % MCH 33 H (28-32) pg MCHC 35 H 36 H (30-34) % RDW 13.1 L (13.2-15.2) % Potassium 3.0 L (3.6-5.0) mmol/L Chloride 108.4 H (98-107) mmol/L BUN 4 L (7-17) mg/dL Creatinine 0.4 L (0.7-1.2) mg/dL Glucose 165 H (65-100) mg/dL POC Glucose (70-105) Calcium 7.7 L (8.4-10.2) mg/dL Phosphorus 0.80 L* D (2.5-4.5) mg/dL 02/22/19 Range/Units 11:32 RBC (3.65-5.03) M/mm3 Hgb (10.1-14.3) gm/dl Hct (30.3-42.9) % MCH (28-32) pg MCHC (30-34) % RDW (13.2-15.2) % Potassium (3.6-5.0) mmol/L Chloride (98-107) mmol/L BUN (7-17) mg/dL Creatinine (0.7-1.2) mg/dL Glucose (65-100) mg/dL POC Glucose 220 H (70-105) Calcium (8.4-10.2) mg/dL Phosphorus (2.5-4.5) mg/dL
[2019-02-22] MEDS: K-PHOS NEUTRAL PO SCH ×3 (16:06→21:37)
[2019-02-22] MEDS: ZOFRAN IV PRN (21:29)
[2019-02-22] MEDS: TRIMOX PO SCH (21:37)
[2019-02-22] MEDS: BIAXIN PO SCH (21:37)
[2019-02-22 22:05] LABS: BUN/Creatinine Ratio 10; Blood Urea Nitrogen 4 mg/dL (7-17); Calcium 8.1 mg/dL (8.4-10.2); Hemolysis Index 1
[2019-02-23] MEDS: SODIUM CHLORIDE FLUSH SYRINGE 10 ML IV SCH ×2 (01:25→22:24)
[2019-02-23] MEDS: HumuLIN R SUB-Q SCH ×5 (01:25→23:37)
[2019-02-23] MEDS: ZOSYN/NS 4.5GM/100ML 4.5 GM/100 ML VIAL IV SCH (06:36)
[2019-02-23] MEDS: MORPHINE IV PRN ×4 (06:36→22:23)
[2019-02-23] MEDS ORDERED: KPHOS 30 MMOL in NACL 0.9% 500 ML 500 ML IV ONE (08:30)
[2019-02-23] MEDS: PROTONIX IV SCH (09:44)
[2019-02-23] MEDS: K-PHOS NEUTRAL PO SCH ×4 (09:44→22:20)
[2019-02-23] MEDS: BIAXIN PO SCH ×2 (09:44→22:20)
[2019-02-23] MEDS: LOVENOX SUB-Q SCH (09:45)
[2019-02-23] MEDS: TRIMOX PO SCH ×2 (09:46→22:21)
[2019-02-23] MEDS: LANTUS SUB-Q SCH (09:47)
--- NOTE | 2019-02-23 10:04 | Progress Note ---
Assessment and Plan Cultures: Blood culture 02/18/19 - NGTD Urine culture 02/18/19 - NGTD Surgery culture 02/18/19 - normal skin pedro A/P: 43 yo F PMHx diabetes admitted with perforated pyloric ulcer 1. Septic shock secondary to abdominal perforation - s/p surgery on 02/18 with ex-lap, lavage, patch, and drain. Recommend continuing pip-tazo. With surgical source control, anticipate a short course of antibiotics post-operatively (4-5 days) assuming uncomplicated course. Remains off pressors. 2. DM2 3. PUD: s/p surgery. Follow up histopathology 4. H. Pylori: on PPI, amoxicillin and clarithromycin. Dr Crenshaw following. . Recs: - Continue IV pip-tazo 4.5g q8h ( last dose today) - Continue abx for H. Pylori (Dr. Crenshaw's recommendations) [facility] M: [phone] O:[phone] Subjective Date of service: 02/23/19 Interval history: Patient seen and examined. Alert. awake. Reports incisional pain and generalized weakness. No fevers or SOB. Objective - Exam Narrative Exam: Constitutional: Awake. Alert. Incisional pain. Head, Ears, Nose: Normocephalic, atraumatic. External ears, nose normal Eyes: Conjunctivae/corneas clear. No icterus. No ptosis. Neck: Supple, no meningeal signs Oral: dentition fair, no thrush Cardiovascular: S1, S2 normal. Respiratory: Good air entry, clear to auscultation bilaterally GI: Soft, mildly tender; bowel sounds +. Drain in place, serous fluid draining. incision c/d/i Musculoskeletal: No pedal edema, no cyanosis. Skin: No rash or abscess Hem/Lymphatic: No palpable cervical or supraclavicular nodes. No lymphangitis Psych: calm Neurological: Awake. Alert. Oriented. - Constitutional Vitals: Vital Signs Temp Pulse Resp BP Pulse Ox 99.4 F 106 H 18 103/62 95 02/23/19 07:44 02/23/19 07:44 02/23/19 07:44 02/23/19 07:44 02/23/19 09:43 Temperature -Last 24 Hours Temperature 99.4 F Temperature 97.2 F Temperature 99.2 F Temperature 99.0 F Temperature 99.2 F Temperature 99.3 F Temperature 99.3 F - Labs CBC & Chem 7: 02/22/19 09:31 02/22/19 21:06 Labs: Abnormal lab results 02/22/19 02/22/19 02/22/19 Range/Units 09:31 11:32 17:59 Potassium 3.0 L (3.6-5.0) mmol/L Chloride 108.4 H (98-107) mmol/L BUN 4 L (7-17) mg/dL Creatinine 0.4 L (0.7-1.2) mg/dL Glucose 165 H (65-100) mg/dL POC Glucose 220 H 289 H (70-105) Calcium 7.7 L (8.4-10.2) mg/dL Phosphorus 0.80 L* D (2.5-4.5) mg/dL 02/22/19 02/22/19 02/23/19 Range/Units 21:06 23:31 05:59 Potassium 3.2 L (3.6-5.0) mmol/L Chloride (98-107) mmol/L BUN 4 L (7-17) mg/dL Creatinine 0.4 L (0.7-1.2) mg/dL Glucose 242 H (65-100) mg/dL POC Glucose 410 H 213 H (70-105) Calcium 8.1 L (8.4-10.2) mg/dL Phosphorus 1.90 L D (2.5-4.5) mg/dL
--- NOTE | 2019-02-23 10:22 | Progress Note ---
Assessment and Plan 43 yo F S/P exploratory laparotomy, peritoneal lavage, minnie patch, placement of drain, L IJ TLC, POD 5 1. perforated pyloric ulcer with gross peritonitis 2. septic shock 2/2 #1 3. DKA Plan: 1. prn pain and nausea control. add scopolamine patch 2. monitor Hb - no active signs of bleeding 3. IS/pulm toilet 4. c/w clear liquid diet 5. c/w amoxicillin and clarithromycin, PPI for H pylori 6. continue abx IV per ID 7. insulin coverage for DM 8. DVT ppx 9. aggressive electrolyte replacement 10. PT/OOB Thank you, please call with questions. Subjective Date of service: 02/23/19 Narrative: Pt seen and examined. c/o upper abdominal pain and nausea. No f/c, vomiting, cp, sob. Tolerating clear liquid diet. Objective Vital Signs - 12hr 02/22/19 02/22/19 02/23/19 23:00 23:25 04:09 Temperature 99.2 F 97.2 F L Pulse Rate 112 H 99 H Respiratory 18 17 Rate Blood Pressure 109/66 114/70 Blood Pressure [Right] O2 Sat by Pulse 99 94 97 Oximetry 02/23/19 02/23/19 07:44 09:43 Temperature 99.4 F Pulse Rate 106 H Respiratory 18 Rate Blood Pressure Blood Pressure 103/62 [Right] O2 Sat by Pulse 98 95 Oximetry - General physical appearance Narrative Exam: Gen: AAOx3. NAD CV: s1, S2+ resp; even and unlabored Abd: soft, mildly distended, mild TTP near incision. No r/r/g. JEREMIAH drain serous Ext: no c/c/e - Labs 02/22/19 09:31 02/22/19 21:06 Diabetes panel 02/22/19 Range/Units 21:06 Sodium 142 (137-145) mmol/L Potassium 3.2 L (3.6-5.0) mmol/L Chloride 106.1 (98-107) mmol/L Carbon Dioxide 26 (22-30) mmol/L BUN 4 L (7-17) mg/dL Creatinine 0.4 L (0.7-1.2) mg/dL Glucose 242 H (65-100) mg/dL Calcium 8.1 L (8.4-10.2) mg/dL Calcium panel 02/22/19 Range/Units 21:06 Calcium 8.1 L (8.4-10.2) mg/dL Phosphorus 1.90 L D (2.5-4.5) mg/dL Pituitary panel 02/22/19 Range/Units 21:06 Sodium 142 (137-145) mmol/L Potassium 3.2 L (3.6-5.0) mmol/L Chloride 106.1 (98-107) mmol/L Carbon Dioxide 26 (22-30) mmol/L BUN 4 L (7-17) mg/dL Creatinine 0.4 L (0.7-1.2) mg/dL Glucose 242 H (65-100) mg/dL Calcium 8.1 L (8.4-10.2) mg/dL Adrenal panel 02/22/19 Range/Units 21:06 Sodium 142 (137-145) mmol/L Potassium 3.2 L (3.6-5.0) mmol/L Chloride 106.1 (98-107) mmol/L Carbon Dioxide 26 (22-30) mmol/L BUN 4 L (7-17) mg/dL Creatinine 0.4 L (0.7-1.2) mg/dL Glucose 242 H (65-100) mg/dL Calcium 8.1 L (8.4-10.2) mg/dL
[2019-02-23] MEDS: ZOFRAN IV PRN ×2 (11:02→22:25)
[2019-02-23 15:17] LABS: BUN/Creatinine Ratio 10; Blood Urea Nitrogen 4 mg/dL (7-17); Calcium 7.7 mg/dL (8.4-10.2); Hemolysis Index 5
[2019-02-23] MEDS: PROTONIX PO SCH (22:20)
[2019-02-24] MEDS: HumuLIN R SUB-Q SCH ×3 (06:34→18:12)
[2019-02-24 08:43] LABS: BUN/Creatinine Ratio 13; Blood Urea Nitrogen 4 mg/dL (7-17); Calcium 7.6 mg/dL (8.4-10.2); Hemolysis Index 23
--- NOTE | 2019-02-24 09:31 | Progress Note ---
Assessment and Plan 43 yo F S/P exploratory laparotomy, peritoneal lavage, minnie patch, placement of drain, L IJ TLC, POD 6 1. perforated pyloric ulcer with gross peritonitis 2. septic shock 2/2 #1 3. DKA Plan: 1. prn pain and nausea control. 2. IS/pulm toilet 3. adv to full liquid diet - will continue for 2 to 3 days 5. c/w amoxicillin and clarithromycin, PPI for H pylori 6. continue abx IV per ID 7. insulin coverage for DM 8. DVT ppx 9. electrolyte replacement as needed 10. PT/OOB Likely stable for dc tomorrow from surgery standpoint. will dc ezequiel drain prior to discharge. Pt to follow up in surgery clinic in 7 days after dc. Thank you, please call with questions. Subjective Date of service: 02/24/19 Narrative: Patient seen and examined. Complains of mild epigastric pain. Tolerating a diet. Shes been ambulating. No nausea, vomiting, fevers or chills. She had multiple bowel movements. Objective Vital Signs - 12hr 02/23/19 02/23/19 02/24/19 22:57 23:00 04:21 Temperature 98.3 F 98.9 F Pulse Rate 94 H 90 Respiratory 20 20 Rate Blood Pressure 113/71 102/68 Blood Pressure [Right] O2 Sat by Pulse 95 99 93 Oximetry 02/24/19 08:37 Temperature 97.9 F Pulse Rate 89 Respiratory 18 Rate Blood Pressure Blood Pressure 113/71 [Right] O2 Sat by Pulse 97 Oximetry - General physical appearance Narrative Exam: general: AAOx3, NAD CV: S1, S2+ Resp: even and unlabored Abd: soft, mildly distended, mild TTP near midline incision. no r,r, g. incision c/d/i. EZEQUIEL drain serous exr: no c/c/e - Labs 02/22/19 09:31 02/24/19 07:53 Diabetes panel 02/23/19 02/24/19 Range/Units 14:56 07:53 Sodium 144 140 (137-145) mmol/L Potassium 3.5 L 3.2 L (3.6-5.0) mmol/L Chloride 107.0 103.2 (98-107) mmol/L Carbon Dioxide 28 29 (22-30) mmol/L BUN 4 L 4 L (7-17) mg/dL Creatinine 0.4 L 0.3 L (0.7-1.2) mg/dL Glucose 156 H 118 H (65-100) mg/dL Calcium 7.7 L 7.6 L (8.4-10.2) mg/dL Calcium panel 02/23/19 02/24/19 Range/Units 14:56 07:53 Calcium 7.7 L 7.6 L (8.4-10.2) mg/dL Phosphorus 3.50 D 2.50 D (2.5-4.5) mg/dL Pituitary panel 02/23/19 02/24/19 Range/Units 14:56 07:53 Sodium 144 140 (137-145) mmol/L Potassium 3.5 L 3.2 L (3.6-5.0) mmol/L Chloride 107.0 103.2 (98-107) mmol/L Carbon Dioxide 28 29 (22-30) mmol/L BUN 4 L 4 L (7-17) mg/dL Creatinine 0.4 L 0.3 L (0.7-1.2) mg/dL Glucose 156 H 118 H (65-100) mg/dL Calcium 7.7 L 7.6 L (8.4-10.2) mg/dL Adrenal panel 02/23/19 02/24/19 Range/Units 14:56 07:53 Sodium 144 140 (137-145) mmol/L Potassium 3.5 L 3.2 L (3.6-5.0) mmol/L Chloride 107.0 103.2 (98-107) mmol/L Carbon Dioxide 28 29 (22-30) mmol/L BUN 4 L 4 L (7-17) mg/dL Creatinine 0.4 L 0.3 L (0.7-1.2) mg/dL Glucose 156 H 118 H (65-100) mg/dL Calcium 7.7 L 7.6 L (8.4-10.2) mg/dL
--- NOTE | 2019-02-24 10:19 | Progress Note ---
Assessment and Plan Cultures: Blood culture 02/18/19 - NGTD Urine culture 02/18/19 - NGTD Surgery culture 02/18/19 - normal skin pedro A/P: 43 yo F PMHx diabetes admitted with perforated pyloric ulcer 1. Septic shock secondary to abdominal perforation - s/p surgery on 02/18 with ex-lap, lavage, patch, and drain. Recommend continuing pip-tazo. With surgical source control, anticipate a short course of antibiotics post-operatively (4-5 days) assuming uncomplicated course. Remains off pressors. 2. DM2 3. PUD: s/p surgery. Follow up histopathology 4. H. Pylori: on PPI, amoxicillin and clarithromycin. Dr Crenshaw following. . Recs: - Continue abx for H. Pylori (Dr. Crenshaw's recommendations) - Clinically stable from ID standpoint. We are signing off, please call for q uestions [facility] M: [phone] O:[phone] Subjective Date of service: 02/24/19 Interval history: Patient seen and examined. Alert. awake. Reports incisional pain and generalized weakness. No fevers or SOB. Objective - Exam Narrative Exam: Constitutional: Awake. Alert. Incisional pain. Head, Ears, Nose: Normocephalic, atraumatic. External ears, nose normal Eyes: Conjunctivae/corneas clear. No icterus. No ptosis. Neck: Supple, no meningeal signs Oral: dentition fair, no thrush Cardiovascular: S1, S2 normal. Respiratory: Good air entry, clear to auscultation bilaterally GI: Soft, mildly tender; bowel sounds +. Drain in place, serous fluid draining. incision c/d/i Musculoskeletal: No pedal edema, no cyanosis. Skin: No rash or abscess Hem/Lymphatic: No palpable cervical or supraclavicular nodes. No lymphangitis Psych: Affect flat Neurological: Awake. Alert. Oriented. - Constitutional Vitals: Vital Signs Temp Pulse Resp BP Pulse Ox 97.9 F 89 18 113/71 97 02/24/19 08:37 02/24/19 08:37 02/24/19 08:37 02/24/19 08:37 02/24/19 08:37 Temperature -Last 24 Hours Temperature 97.9 F Temperature 98.9 F Temperature 98.3 F Temperature 98.9 F - Labs CBC & Chem 7: 02/22/19 09:31 02/24/19 07:53 Labs: Abnormal lab results 02/23/19 02/23/19 02/23/19 Range/Units 12:18 14:56 17:42 Potassium 3.5 L (3.6-5.0) mmol/L BUN 4 L (7-17) mg/dL Creatinine 0.4 L (0.7-1.2) mg/dL Glucose 156 H (65-100) mg/dL POC Glucose 150 H 204 H (70-105) Calcium 7.7 L (8.4-10.2) mg/dL 02/23/19 02/24/19 02/24/19 Range/Units 23:03 05:46 07:53 Potassium 3.2 L (3.6-5.0) mmol/L BUN 4 L (7-17) mg/dL Creatinine 0.3 L (0.7-1.2) mg/dL Glucose 118 H (65-100) mg/dL POC Glucose 185 H 159 H (70-105) Calcium 7.6 L (8.4-10.2) mg/dL
[2019-02-24] MEDS ORDERED: POTASSIUM CHLORIDE PO NR (10:30)
[2019-02-24] MEDS: BIAXIN PO SCH ×2 (10:30→21:32)
[2019-02-24] MEDS: LANTUS SUB-Q SCH (10:30)
[2019-02-24] MEDS: LOVENOX SUB-Q SCH (10:31)
[2019-02-24] MEDS: PROTONIX PO SCH ×2 (10:31→21:32)
[2019-02-24] MEDS: TRIMOX PO SCH ×2 (10:32→21:32)
[2019-02-24] MEDS: MORPHINE IV PRN ×2 (12:21→21:44)
[2019-02-24] MEDS: NACL 0.45% 1000 ML 1,000 ML IV SCH (14:42)
--- NOTE | 2019-02-24 15:36 | Progress Note ---
Assessment and Plan 1. Septic shock secondary to abdominal perforation - s/p surgery on 02/18 with ex-lap, lavage, patch, and drain. Recommend continuing pip-tazo. With surgical source control, anticipate a short course of antibiotics post-operatively (4-5 days) assuming uncomplicated course. Remains off pressors. 2. DM2--Improved Cont Insulin coverage 3. PUD: s/p surgery. Follow up histopathology 4. H. Pylori: on PPI, amoxicillin and clarithromycin. Dr Crenshaw following. . Recs: - Continue IV pip-tazo 4.5g q8h ( last dose today) - Continue abx for H. Pylori Subjective Date of service: 02/23/19 Principal diagnosis: Perforated Abdominal pUD Interval history: Post op patient doing well Objective - Constitutional Vitals: Vital Signs - 12hr 02/24/19 02/24/19 04:21 08:37 Temperature 98.9 F 97.9 F Pulse Rate 90 89 Respiratory 20 18 Rate Blood Pressure 102/68 Blood Pressure 113/71 [Right] O2 Sat by Pulse 93 97 Oximetry General appearance: Present: no acute distress, well-nourished - EENT Eyes: PERRL, EOM intact ENT: hearing intact, clear oral mucosa Ears: bilateral: normal - Neck Neck: supple, normal ROM - Respiratory Respiratory effort: normal Respiratory: bilateral: CTA - Breasts Breasts: normal - Cardiovascular Rhythm: regular Heart Sounds: Present: S1 & S2. Absent: gallop, rub Extremities: pulses intact, No edema, normal color, Full ROM - Gastrointestinal General gastrointestinal: Present: soft, non-tender, non-distended, normal bowel sounds - Genitourinary Female genitourinary: normal - Integumentary Integumentary: clear, warm, dry - Musculoskeletal Musculoskeletal: 1, strength equal bilaterally - Neurologic Neurologic: moves all extremities - Psychiatric Psychiatric: memory intact, appropriate mood/affect, intact judgment & insight - Labs CBC & Chem 7: 02/22/19 09:31 02/24/19 07:53 Labs: Abnormal lab results 02/23/19 02/23/19 02/24/19 Range/Units 17:42 23:03 05:46 Potassium (3.6-5.0) mmol/L BUN (7-17) mg/dL Creatinine (0.7-1.2) mg/dL Glucose (65-100) mg/dL POC Glucose 204 H 185 H 159 H (70-105) Calcium (8.4-10.2) mg/dL 02/24/19 Range/Units 07:53 Potassium 3.2 L (3.6-5.0) mmol/L BUN 4 L (7-17) mg/dL Creatinine 0.3 L (0.7-1.2) mg/dL Glucose 118 H (65-100) mg/dL POC Glucose (70-105) Calcium 7.6 L (8.4-10.2) mg/dL
--- NOTE | 2019-02-24 15:40 | Progress Note ---
Assessment and Plan 1. Septic shock secondary to abdominal perforation - s/p surgery on 02/18 with ex-lap, lavage, patch, and drain. Recommend continuing pip-tazo. With surgical source control, anticipate a short course of antibiotics post-operatively (4-5 days) assuming uncomplicated course. Remains off pressors. 2. DM2--Improved Cont Insulin coverage 3. PUD: s/p surgery. Follow up histopathology 4. H. Pylori: on PPI, amoxicillin and clarithromycin. Dr Crenshaw following. . Recs: - Continue IV pip-tazo 4.5g q8h ( last dose yesterday) - Continue abx for H. Pylori possible discharge tomorrow if cleared RICH recommended Subjective Date of service: 02/24/19 Principal diagnosis: Perforated Abdominal pUD Interval history: Post op patient doing well Objective - Constitutional Vitals: Vital Signs - 12hr 02/24/19 02/24/19 04:21 08:37 Temperature 98.9 F 97.9 F Pulse Rate 90 89 Respiratory 20 18 Rate Blood Pressure 102/68 Blood Pressure 113/71 [Right] O2 Sat by Pulse 93 97 Oximetry General appearance: Present: no acute distress, well-nourished - EENT Eyes: PERRL, EOM intact ENT: hearing intact, clear oral mucosa Ears: bilateral: normal - Neck Neck: supple, normal ROM - Respiratory Respiratory effort: normal Respiratory: bilateral: CTA - Breasts Breasts: normal - Cardiovascular Rhythm: regular Heart Sounds: Present: S1 & S2. Absent: gallop, rub Extremities: pulses intact, No edema, normal color, Full ROM - Gastrointestinal General gastrointestinal: Present: soft, non-tender, non-distended, normal bowel sounds - Genitourinary Female genitourinary: normal - Integumentary Integumentary: clear, warm, dry - Musculoskeletal Musculoskeletal: 1, strength equal bilaterally - Neurologic Neurologic: moves all extremities - Psychiatric Psychiatric: memory intact, appropriate mood/affect, intact judgment & insight - Labs CBC & Chem 7: 02/22/19 09:31 02/24/19 07:53 Labs: Abnormal lab results 02/23/19 02/23/19 02/24/19 Range/Units 17:42 23:03 05:46 Potassium (3.6-5.0) mmol/L BUN (7-17) mg/dL Creatinine (0.7-1.2) mg/dL Glucose (65-100) mg/dL POC Glucose 204 H 185 H 159 H (70-105) Calcium (8.4-10.2) mg/dL 02/24/19 Range/Units 07:53 Potassium 3.2 L (3.6-5.0) mmol/L BUN 4 L (7-17) mg/dL Creatinine 0.3 L (0.7-1.2) mg/dL Glucose 118 H (65-100) mg/dL POC Glucose (70-105) Calcium 7.6 L (8.4-10.2) mg/dL
[2019-02-24] MEDS: SODIUM CHLORIDE FLUSH SYRINGE 10 ML IV SCH ×2 (19:21→21:33)
[2019-02-25] MEDS: HumuLIN R SUB-Q SCH ×4 (00:15→17:19)
[2019-02-25] MEDS: NORCO 5/325 PO PRN ×3 (03:03→17:09)
[2019-02-25] MEDS: NACL 0.45% 1000 ML 1,000 ML IV SCH (04:12)
[2019-02-25] MEDS: PROTONIX PO SCH (10:57)
[2019-02-25] MEDS: LOVENOX SUB-Q SCH (10:57)
[2019-02-25] MEDS: TRIMOX PO SCH (10:57)
[2019-02-25] MEDS: SODIUM CHLORIDE FLUSH SYRINGE 10 ML IV SCH (11:02)
--- NOTE | 2019-02-25 11:39 | Progress Note ---
Assessment and Plan - Patient Problems (1) Perforated gastric ulcer Current Visit: Yes Status: Acute Qualifiers: Gastric ulcer chronicity: acute Qualified Code(s): K25.1 - Acute gastric ulcer with perforation Plan to address problem: Pt stable. Drain easily removed. Report of 420cc was in error. Pt cleared for discharge home. Rec: 1) stay on full liquid diet for another 3-4 days. May advance to soft diet after 3-4 days 2) May shower on Wednesday. Pat dry wounds. 3) f/u with Dr. Crenshaw in 10 days. 4) No heavy lifting or strenuous activity. Please call questions. Subjective Date of service: 02/25/19 Patient Reports: Positive: no new complaints, feels better, pain is less, tolerating liquids well, bowel movement. Negative: nausea, vomiting Objective Vital Signs - 12hr 02/25/19 02/25/19 04:00 08:21 Temperature 98.6 F 99.8 F H Pulse Rate 88 94 H Respiratory 18 18 Rate Blood Pressure 107/65 Blood Pressure 94/57 [Right] O2 Sat by Pulse 95 100 Oximetry - General physical appearance no distress, no pain, other (looks well) - Eyes normal occular movement - Respiratory normal expansion, normal respiratory effort - Abdomen soft, not tender, not distended, not guarding, not rigid, surgical scars (C/D/I), other (JEREMIAH with minimal serous output (note: last report of 420cc was in error)) - Psychiatric oriented to time, oriented to person, oriented to place, speech is normal, memory intact - Labs 02/22/19 09:31 02/24/19 07:53
[2019-02-25] MEDS: LANTUS SUB-Q SCH (11:46)
[2019-02-25] MEDS: BIAXIN PO SCH (11:49)
--- NOTE | 2019-02-25 15:11 | Discharge Summary ---
Providers - Providers Date of Admission: 02/18/19 18:30 Date of discharge: 02/25/19 Attending physician: GIANCARLO CISNEROS 02/18/19 Consult to Case Management [CONS] Routine Services Needed at Discharge: Home Health Services Notified:: cm notified 02/18/19 15:42 Consult to Physician [CONS] Urgent Comment: Consulting Provider: IAIN ESTEBAN Physician Instructions: Reason For Exam: bowel perf, inflamatory bowel changes, dka 02/19/19 10:34 Consult to Physician [CONS] Routine Comment: Consulting Provider: MICHAEL CORONADO Physician Instructions: Reason For Exam: septic shock, peritonitis, perforated ulcer 02/20/19 05:06 Consult to Dietitian/Nutrition [CONS] Routine Physician Instructions: Reason For Exam: DO NOT START TPN/PPN Reason for Consult: Malnutrition 02/21/19 12:02 Physical Therapy Evaluation and Treat [CONS] Routine Comment: Reason For Exam: post op deconditioning 02/22/19 12:52 Midline [Consult to PICC Line RN] [CONS] Routine Reason For Exam: difficult iv access Type Line:: Midline Primary care physician: GIRISH CAMPOVERDE Hospitalization Condition: Serious Procedures: perforated pyloric ulcer with gross spillage of gastric contents throughout the abdomen Procedure: Exploratory laparotomy, peritoneal lavage, minnie patch, placement of drain by Dr Esteban on 02/18/2019 Hospital course: 1. Septic shock secondary to abdominal perforation - s/p surgery on 02/18 with ex-lap, lavage, patch, and drain. Recommend continuing pip-tazo. With surgical source control, anticipate a short course of antibiotics post-operatively (4-5 days) assuming uncomplicated course. Remains off pressors. 2. DM2--Improved Cont Insulin coverage 3. PUD: s/p surgery. Follow up histopathology 4. H. Pylori: on PPI, amoxicillin and clarithromycin. Dr Esteban following. . Recs: - Continue abx for H. Pylori Disposition: - TO HOME OR SELFCARE Core Measure Documentation - Palliative Care Palliative Care/ Comfort Measures: Not Applicable - Core Measures Any of the following diagnoses?: none Exam - Constitutional Vitals: Temp Pulse Resp BP Pulse Ox 99.8 F H 62 18 126/77 94 02/25/19 08:21 02/25/19 11:27 02/25/19 11:56 02/25/19 11:27 02/25/19 11:27 General appearance: Present: no acute distress, well-nourished - EENT Eyes: Present: PERRL ENT: hearing intact, clear oral mucosa - Neck Neck: Present: supple, normal ROM - Respiratory Respiratory effort: normal Respiratory: bilateral: CTA - Cardiovascular Heart rate: 78 Rhythm: regular Heart Sounds: Present: S1 & S2. Absent: rub, click - Extremities Extremities: no ischemia, pulses intact, pulses symmetrical, No edema Peripheral Pulses: within normal limits - Abdominal General gastrointestinal: Present: soft, non-tender, non-distended, normal bowel sounds Female genitourinary: Present: normal - Integumentary Integumentary: Present: clear, warm, dry - Musculoskeletal Musculoskeletal: gait normal, strength equal bilaterally - Psychiatric Psychiatric: appropriate mood/affect, intact judgment & insight - Neurologic Neurologic: CNII-XII intact, moves all extremities - Allied Health Allied health notes reviewed: nursing, case management Plan Activity: no restrictions Diet: diabetic Follow up with: GIRISH CAMPOVERDE MD [Primary Care Provider] - 3-5 Days
[2019-02-25] MEDS ORDERED: K-DUR PO NR (15:30)
[2019-02-25 17:26] VITALS: BP 128/78
== END 2019-02-25 19:30 | disposition home or self-care (01) | DRG 853 ==
LOC: ED 12:02 → OR 17:32 → CC1 18:30 → 3B-SURG 02-21 18:19
PROVIDERS: ADMIT Internal Medicine; ATTEND Internal Medicine
PROC: 0DU907Z Supplement Duodenum with Autologous Tissue Substitute, Open Approach (ICD-10-PCS; principal; 2019-02-18)
PROC: 0W9G00Z Drainage of Peritoneal Cavity with Drainage Device, Open Approach (ICD-10-PCS; 2019-02-18)
PROC: 3E1M38X Irrigation of Peritoneal Cavity using Irrigating Substance, Percutaneous Approach, Diagnostic (ICD-10-PCS; 2019-02-18)
PROC: 0DB70ZX Excision of Stomach, Pylorus, Open Approach, Diagnostic (ICD-10-PCS; 2019-02-18)
PROC: 05HN33Z Insertion of Infusion Device into Left Internal Jugular Vein, Percutaneous Approach (ICD-10-PCS; 2019-02-18)
PROC: B544ZZA Ultrasonography of Left Jugular Veins, Guidance (ICD-10-PCS; 2019-02-18)
PROC: 05HY33Z Insertion of Infusion Device into Upper Vein, Percutaneous Approach (ICD-10-PCS; 2019-02-22)
DX: A41.9 Sepsis, unspecified organism (principal); K63.1 Perforation of intestine (nontraumatic); E11.10 Type 2 diabetes mellitus with ketoacidosis without coma; R65.21 Severe sepsis with septic shock; K25.1 Acute gastric ulcer with perforation; E83.51 Hypocalcemia; Z79.899 Other long term (current) drug therapy; Z79.4 Long term (current) use of insulin; Z98.51 Tubal ligation status; Z82.49 Family history of ischemic heart disease and other diseases of the circulatory system
CPT/HCPCS: 36415; 71045; 74177; 74247; 80048; 80053; 81001; 82140; 82805; 82962; 83036; 83690; 83735; 84100; 84132; 84703; 85007; 85025; 85027; 85610; 85730; 86850; 86900; 86901; 87040; 87075; 87086; 87116; 88305; 88312; 88342; 93005; 93010; 94760; G0378; C9113; J0171; J0330; J0610; J1170; J1650; J1815; J1956; J2001; J2270; J2370; J2405; J2543; J2704; J3010; J3475; J7030; J7040; J7050; Q9967

== ENCOUNTER 2020-08-07 09:05 | Emergency (ER) | payer SELFPAY ==
[2020-08-07 09:14] VITALS: BP 122/71
[2020-08-07] MEDS ORDERED: SODIUM CHLORIDE 0.9% 1000 ML 1,000 ML IV ONE (10:12)
[2020-08-07] MEDS ORDERED: MORPHINE 4 MG/1 ML INJ IV ONE (10:12)
[2020-08-07] MEDS ORDERED: ONDANSETRON 4 MG/2 ML INJ IV ONE (10:12)
--- NOTE | 2020-08-07 10:15 | Emergency Department Report ---
HPI - General Chief Complaint: Abdominal Pain Time Seen by Provider: 08/07/20 10:02 - HPI HPI: This is a 45-year-old -[place] female presents to the emergency department with complaint of generalized abdominal pain, worse in the upper abdomen, and constipation without a bowel movement in 1 week. The patient has tried MiraLAX and other stool softeners and laxatives, over the past week, without any relief. She admits to some nausea, but denies any fever, vomiting, back pain, dysuria, vaginal bleeding or discharge. Patient has a history of d iabetes mellitus on both insulin and pills, previous tubal ligation, and the patient had intra-abdominal surgery in 2019 for a perforated pyloric ulcer and subsequent perforated viscus spilling intra-abdominal contents. She does not have a primary care physician. She denies any tobacco or illicit drug use. No recent travel or sick contacts at home. Currently her abdominal pain is 9 out of 10 in intensity. No known aggravating or alleviating factors. ED Past Medical Hx - Past Medical History Previous Medical History?: Yes Hx Hypertension: No Hx Heart Attack/AMI: No Hx Diabetes: Yes Hx Deep Vein Thrombosis: No Hx Liver Disease: No (patient denies however possible cirrhosis w/ gastric varices on CT ) Hx Renal Disease: No Hx Seizures: No Hx Asthma: Yes Hx HIV: No - Surgical History Hx Pacemaker: No Hx Internal Defibrillator: No Additional Surgical History: Tubal Ligation - Social History Smoking Status: Former Smoker Substance Use Type: None - Medications Home Medications: Home Medications Medication Instructions Recorded Confirmed Last Taken Type Ciprofloxacin HCl [Cipro] 500 mg PO BID #14 tablet 10/09/17 02/19/19 Unknown Rx HYDROcodone/APAP 5-325 [[place] 1 each PO Q6HR PRN #14 tablet 10/09/17 02/19/19 Unknown Rx 5/325] Ondansetron [Zofran Odt] 4 mg PO Q8HR #10 tab.rapdis 10/09/17 02/19/19 Unknown Rx Amoxicillin [Trimox CAP] 1,000 mg PO Q12HR #42 capsule 02/25/19 Unknown Rx Clarithromycin [Biaxin] 500 mg PO Q12HR #18 tablet 02/25/19 Unknown Rx Dicyclomine [Bentyl] 20 mg PO QID #20 tablet 02/25/19 Unknown Rx Glimepiride [Amaryl] 1 mg PO QAM #30 tablet 02/25/19 Unknown Rx HYDROcodone/APAP 5-325 [[place] 1 each PO Q4H PRN #20 tablet 02/25/19 Unknown Rx 5-325 mg TAB] HYDROcodone/APAP 5-325 [[place] 1 each PO Q4HR PRN #15 tablet 02/25/19 Unknown Rx 5/325] Pantoprazole [Protonix TAB] 40 mg PO BID #60 tablet 02/25/19 Unknown Rx metFORMIN [Glucophage] 500 mg PO BID #60 tablet 02/25/19 Unknown Rx Docusate Sodium [Colace] 100 mg PO BID PRN #20 capsule 08/07/20 Unknown Rx Sulfamethoxazole/Trimethoprim 1 each PO BID #14 tablet 08/07/20 Unknown Rx [Bactrim DS TAB] ED Review of Systems ROS: Stated complaint: ABD PAIN Other details as noted in HPI Comment: All other systems reviewed and negative Constitutional: denies: chills, fever Eyes: denies: eye pain, vision change ENT: denies: ear pain, throat pain Respiratory: denies: cough, shortness of breath Cardiovascular: denies: chest pain, palpitations Gastrointestinal: abdominal pain, nausea, constipation. denies: vomiting Genitourinary: denies: dysuria, discharge Musculoskeletal: denies: back pain, arthralgia Skin: denies: rash, lesions Neurological: denies: headache, weakness Physical Exam - Physical Exam Vital Signs: Vital Signs 08/07/20 09:13 Temperature 98.1 F Pulse Rate 102 H Respiratory 18 Rate Blood Pressure 122/71 [Right] O2 Sat by Pulse 100 Oximetry Physical Exam: GENERAL: The patient is well-developed well-nourished. HENT: Normocephalic. Atraumatic. Patient has moist mucous membranes. EYES: Extraocular motions are intact. NECK: Supple. Trachea is midline. CHEST/LUNGS: Clear to auscultation. There is no respiratory distress noted. HEART/CARDIOVASCULAR: Regular. There is no tachycardia. There is no murmur. ABDOMEN: Abdomen is soft. Generalized abdominal tenderness to palpation. No guarding. Patient has normal bowel sounds. There is a reducible right middle abdominal ventral hernia. SKIN: Skin is warm and dry. NEURO: The patient is awake, alert, and oriented. The patient is cooperative. The patient has no focal neurologic deficits. Normal speech. MUSCULOSKELETAL: There is no tenderness or deformity. There is no limitation range of motion. BACK: No CVA tenderness to palpation. ED Course Vital Signs 08/07/20 09:13 Temperature 98.1 F Pulse Rate 102 H Respiratory 18 Rate Blood Pressure 122/71 [Right] O2 Sat by Pulse 100 Oximetry - Consultations Consultation #1: 08/07/20 17:26 I spoke to the service of Dr. Smith, [employer] on-call. They will arrange for close outpatient follow-up with this patient regarding the uterine/cervical mass and concern for malignancy. ED Medical Decision Making - Lab Data Result diagrams: 08/07/20 09:30 08/07/20 09:30 - Radiology Data Radiology results: report reviewed, image reviewed CT ABDOMEN AND PELVIS WITH CONTRAST INDICATION / CLINICAL INFORMATION: Abdominal pain no bowel movement for 7 days TECHNIQUE: Axial CT images were obtained through the abdomen and pelvis after 100 cc Omnipaque 300 milligrams percent IV contrast. All CT scans at this location are performed using CT dose reduction for ALARA by means of automated exposure control. COMPARISON: February 18, 2019 FINDINGS: LOWER CHEST: Bullous disease present right lower lobe LIVER: No significant abnormality. GALLBLADDER: No significant abnormality. BILE DUCTS: No significant abnormality. PANCREAS: No significant abnormality. SPLEEN: No significant abnormality. ADRENALS: No significant abnormality. RIGHT KIDNEY and URETER: No significant abnormality. LEFT KIDNEY and URETER: No significant abnormality. STOMACH and SMALL BOWEL: No significant abnormality. COLON: No significant abnormality. APPENDIX: No significant abnormality. PERITONEUM: Anterior abdominal wall defects present with herniation of gastrointestinal contents without evidence of obstruction or strangulation. No free fluid. No free air. No fluid collection. LYMPH NODES: Multiple necrotic lymph nodes are present along the inferior vena cava and aorta extending along the aortic bifurcation producing a masslike appearance AORTA and ARTERIES: No significant abnormality. IVC and VEINS: No significant abnormality. URINARY BLADDER: No significant abnormality. REPRODUCTIVE ORGANS: No significant abnormality. ADDITIONAL FINDINGS: Complex mass involving the deep pelvis which may originate in the lower uterine segment-cervix. SKELETAL SYSTEM: No significant abnormality. IMPRESSION: 1. Complex mass deep pelvis arising from the cervical region, most consistent with cervical carcinoma 2. Extensive retroperitoneal lymphadenopathy consistent with metastatic cervical carcinoma 3. Anterior abdominal wall defect - Medical Decision Making This patient presents to the emergency department with a complaint of abdominal pain with some constipation for the past week. On examination the patient has a reducible abdominal hernia. There is abdominal tenderness to palpation but no guarding or rebound tenderness. The labs show a mild leukocytosis of 13,000, anemia with a hemoglobin of 7.3 and the patient has a significant urinary tract infection. Patient was given some IV fluid resuscitation, IV analgesia and IV antibiotics. A CT scan of the abdomen and pelvis with IV contrast was performed that shows an abdominal wall defect without signs of bowel obstruction or strangulation. The CT also shows a cervical or lower uterine mass and some necrotic appearing retroperitoneal lymphadenopathy that altogether is concerning for malignancy. The [employer] service photogrammetric compilation specialist was contacted and they will arrange for close outpatient follow-up with this patient. The patient has been given a referral for general surgery regarding the abdominal hernia. She has been placed on antibiotics for the UTI. She will return to the emergency department with any worsening of her symptoms or with any acute distress. Patient's vital signs have been reassuring throughout her ED course including being afebrile. Critical Care Time: No Critical care attestation.: If time is entered above; I have spent that time in minutes in the direct care of this critically ill patient, excluding procedure time. ED Disposition Clinical Impression: Uterine mass, Lymphadenopathy, abdominal, Increased stool volume Abdominal pain Qualifiers: Abdominal location: unspecified location Qualified Code(s): R10.9 - Unspecified abdominal pain UTI (urinary tract infection) Qualifiers: Urinary tract infection type: acute cystitis Hematuria presence: without hematuria Qualified Code(s): N30.00 - Acute cystitis without hematuria Disposition: TO HOME OR SELFCARE Is pt being admited?: No Condition: Stable Instructions: Hernia, Adult, Abdominal Pain, Adult, Constipation, Adult, Urinary Tract Infection, Adult, Pelvic Mass, Female, Abdominal Pain (ED) Additional Instructions: I have given your contact information to the office of Dr. Smith, [employer]. Someone from their office should be contacting you shortly for close outpatient follow-up, but just in case I have also given you Dr. Beck contact information. Please follow-up with Dr. Smith regarding the CT findings of a uterine or cervical mass. I have given you the contact information for Dr. Esteban, general surgeon, to follow-up regarding the abdominal hernia. Take all medications as prescribed. Return to the emergency department with any worsening of your symptoms, new or concerning symptoms not addressed during this current emergency department visit, or with any acute distress. Prescriptions: Sulfamethoxazole/Trimethoprim [Bactrim DS TAB] 1 each PO BID #14 tablet Docusate Sodium [Colace] 100 mg PO BID PRN #20 capsule PRN Reason: Constipation Referrals: IAIN ESTEBAN DO [Staff Physician] - 3-5 Days FINESSE SMITH MD [Staff Physician] - [facility] [Primary Care Provider] - 2-3 Days Time of Disposition: 13:16
[2020-08-07 10:24] LABS: Basophils % (Auto) 0.3 % (0.0-1.8); Eosinophils # (Auto) 0.1 K/mm3 (0.0-0.4); Eosinophils % (Auto) 0.6 % (0.0-4.3); Hematocrit 22.7 % (30.3-42.9); Hemoglobin 7.3 gm/dl (10.1-14.3); Lymphocytes # (Auto) 1.1 K/mm3 (1.2-5.4); Mean Corpuscular HGB Conc 32 % (30-34); Mean Corpuscular Volume 83 fl (79-97); Monocytes # (Auto) 0.5 K/mm3 (0.0-0.8); Monocytes % (Auto) 3.4 % (0.0-7.3); Platelet Count 436 K/mm3 (140-440); Red Blood Count 2.74 M/mm3 (3.65-5.03); Red Cell Distribution Width 14.5 % (13.2-15.2)
[2020-08-07 10:43] LABS: Alanine Aminotransferase 6 units/L (7-56); Albumin 3.5 g/dL (3.9-5); BUN/Creatinine Ratio 19; Bilirubin,Direct < 0.2 mg/dL (0-0.2); Blood Urea Nitrogen 17 mg/dL (7-17); Calcium 9.6 mg/dL (8.4-10.2); Hemolysis Index 0
--- NOTE | 2020-08-07 11:48 | XRay Report ---
ABDOMEN 3 VIEW(S) INDICATION / CLINICAL INFORMATION: Abd pain, no BM in 7 days. COMPARISON: CT abdomen/pelvis from today FINDINGS: TUBES / LINES: None. BOWEL GAS PATTERN: Prominent diffuse colonic stool burden may be seen with constipation. No bowel obs truction identified. FREE AIR / EXTRALUMINAL GAS: None seen. ADDITIONAL FINDINGS: No significant additional findings. IMPRESSION: 1. Bowel findings as above could be seen with constipation. Signer Name: Charlie Mike MD Signed: 08/07/2020 11:44 AM Workstation Name: [id number]
[2020-08-07 12:01] LABS: Bilirubin,Urine NEG (Negative); Blood,Urine MOD (Negative); Color,Urine Yellow (Yellow); Mucus,Urine 1+ /HPF; Urobilinogen,Urine < 2.0 mg/dL (<2.0)
[2020-08-07 12:02] LABS: Protein,Urine >500 mg/dL (Negative)
[2020-08-07] MEDS ORDERED: cefTRIAXone/NS 1 GM/50 ML 1 GM/50 ML BAG IV ONE (12:03)
--- NOTE | 2020-08-07 12:16 | Cat Scan Report ---
CT ABDOMEN AND PELVIS WITH CONTRAST INDICATION / CLINICAL INFORMATION: Abdominal pain no bowel movement for 7 days TECHNIQUE: Axial CT images were obtained through the abdomen and pelvis after 100 cc Omnipaque 300 milligrams pe rcent IV contrast. All CT scans at this location are performed using CT dose reduction for ALARA by means of automated exposure control. COMPARISON: February 18, 2019 FINDINGS: LOWER CHEST: Bullous disease present right lower lobe LIVER: No significant abnormality. GALLBLADDER: No significant abnormality. BILE DUCTS: No significant abnormality. PANCREAS: No significant abnormality. SPLEEN: No significant abnormality. ADRENALS: No significant abnormality. RIGHT KIDNEY and URETER: No significant abnormality. LEFT KIDNEY and URETER: No significant abnormality. STOMACH and SMALL BOWEL: No significant abnormality. COLON: No significant abnormality. APPENDIX: No significant abnormality. PERITONEUM: Anterior abdominal wall defects present with herniation of gastrointestinal contents with out evidence of obstruction or strangulation. No free fluid. No free air. No fluid collection. LYMPH NODES: Multiple necrotic lymph nodes are present along the inferior vena cava and aorta extendi ng along the aortic bifurcation producing a masslike appearance AORTA and ARTERIES: No significant abnormality. IVC and VEINS: No significant abnormality. URINARY BLADDER: No significant abnormality. REPRODUCTIVE ORGANS: No significant abnormality. ADDITIONAL FINDINGS: Complex mass involving the deep pelvis which may originate in the lower uterine segment-cervix. SKELETAL SYSTEM: No significant abnormality. IMPRESSION: 1. Complex mass deep pelvis arising from the cervical region, most consistent with cervical carcinoma 2. Extensive retroperitoneal lymphadenopathy consistent with metastatic cervical carcinoma 3. Anterior abdominal wall defect Signer Name: Lucas Ratliff MD Signed: 08/07/2020 12:12 PM Workstation Name: [id number]
== END 2020-08-07 13:51 | disposition home or self-care (01) ==
LOC: ED 09:05
DX: N85.8 Other specified noninflammatory disorders of uterus (principal); N39.0 Urinary tract infection, site not specified; K52.9 Noninfective gastroenteritis and colitis, unspecified; R19.5 Other fecal abnormalities; R59.0 Localized enlarged lymph nodes; E11.9 Type 2 diabetes mellitus without complications; J45.909 Unspecified asthma, uncomplicated; R10.84 Generalized abdominal pain; Z79.899 Other long term (current) drug therapy; Z87.891 Personal history of nicotine dependence; Z98.51 Tubal ligation status
CPT/HCPCS: 36415; 74019; 74177; 80048; 80076; 81001; 83690; 84703; 85025; 96361; 96365; 96375; 99285; J0696; J2270; J2405; J7030; Q9967

== ENCOUNTER 2021-01-17 17:15 | Emergency (ER) | payer MEDICAID ==
[2021-01-18] MEDS ORDERED: HYDROcodone/ACETAMINOPHEN 5-325 MG TAB PO ONE (00:28)
--- NOTE | 2021-01-18 00:30 | Emergency Department Report ---
ED General Adult HPI - General Chief complaint: Extremity Injury, Lower Stated complaint: LEFT LEG PAIN Time Seen by Provider: 01/18/21 00:10 Source: patient Mode of arrival: Wheelchair Limitations: Physical Limitation - History of Present Illness Initial comments: 45-year-old -[place] female patient with history of diabetes, hypertension, and cervical cancer (currently on chemo) presents with complaints of sudden onset of left thigh pain starting today. She denies any injuries, fever/chills/sweats, or difficulty moving her leg. Pain worsens with touch per patient. She also denies any recent long travel, hemoptysis/cough, shortness of breath, numbness/tingling/weakness in the leg, or hormone use. Patient rates her pain as a 9/10 in severity. -: Sudden - Related Data Previous Rx's Medication Instructions Recorded Last Taken Type Ciprofloxacin HCl [Cipro] 500 mg PO BID #14 tablet 10/09/17 Unknown Rx HYDROcodone/APAP 5-325 [[place] 1 each PO Q6HR PRN #14 tablet 10/09/17 Unknown Rx 5/325] Ondansetron [Zofran Odt] 4 mg PO Q8HR #10 tab.rapdis 10/09/17 Unknown Rx Amoxicillin [Trimox CAP] 1,000 mg PO Q12HR #42 capsule 02/25/19 Unknown Rx Clarithromycin [Biaxin] 500 mg PO Q12HR #18 tablet 02/25/19 Unknown Rx Dicyclomine [Bentyl] 20 mg PO QID #20 tablet 02/25/19 Unknown Rx Glimepiride [Amaryl] 1 mg PO QAM #30 tablet 02/25/19 Unknown Rx HYDROcodone/APAP 5-325 [[place] 1 each PO Q4H PRN #20 tablet 02/25/19 Unknown Rx 5-325 mg TAB] HYDROcodone/APAP 5-325 [[place] 1 each PO Q4HR PRN #15 tablet 02/25/19 Unknown Rx 5/325] Pantoprazole [Protonix TAB] 40 mg PO BID #60 tablet 02/25/19 Unknown Rx metFORMIN [Glucophage] 500 mg PO BID #60 tablet 02/25/19 Unknown Rx Docusate Sodium [Colace] 100 mg PO BID PRN #20 capsule 08/07/20 Unknown Rx Sulfamethoxazole/Trimethoprim 1 each PO BID #14 tablet 08/07/20 Unknown Rx [Bactrim DS TAB] methocarbamoL [Methocarbamol] 500 mg PO BID PRN #20 tablet 01/18/21 Unknown Rx traMADoL [Ultram 50 MG tab] 50 mg PO Q6HR PRN #8 tablet 01/18/21 Unknown Rx Allergies Allergy/AdvReac Type Severity Reaction Status Date / Time No Known Allergies Allergy Unverified 03/12/13 12:14 ED Review of Systems ROS: Stated complaint: LEFT LEG PAIN Other details as noted in HPI Constitutional: denies: diaphoresis, fever, malaise Musculoskeletal: arthralgia, myalgia. denies: joint swelling Skin: denies: rash, change in color Neurological: denies: numbness, paresthesias ED Past Medical Hx - Past Medical History Previous Medical History?: Yes Hx Hypertension: No Hx Heart Attack/AMI: No Hx Diabetes: Yes Hx Deep Vein Thrombosis: No Hx Liver Disease: No (patient denies however possible cirrhosis w/ gastric varices on CT ) Hx Renal Disease: No Hx Seizures: No Hx Asthma: Yes Hx HIV: No - Surgical History Past Surgical History?: Yes Hx Pacemaker: No Hx Internal Defibrillator: No Additional Surgical History: Tubal Ligation - Social History Smoking Status: Former Smoker Substance Use Type: None - Medications Home Medications: Home Medications Medication Instructions Recorded Confirmed Last Taken Type Ciprofloxacin HCl [Cipro] 500 mg PO BID #14 tablet 10/09/17 02/19/19 Unknown Rx HYDROcodone/APAP 5-325 [[place] 1 each PO Q6HR PRN #14 tablet 10/09/17 02/19/19 Unknown Rx 5/325] Ondansetron [Zofran Odt] 4 mg PO Q8HR #10 tab.rapdis 10/09/17 02/19/19 Unknown Rx Amoxicillin [Trimox CAP] 1,000 mg PO Q12HR #42 capsule 02/25/19 Unknown Rx Clarithromycin [Biaxin] 500 mg PO Q12HR #18 tablet 02/25/19 Unknown Rx Dicyclomine [Bentyl] 20 mg PO QID #20 tablet 02/25/19 Unknown Rx Glimepiride [Amaryl] 1 mg PO QAM #30 tablet 02/25/19 Unknown Rx HYDROcodone/APAP 5-325 [[place] 1 each PO Q4H PRN #20 tablet 02/25/19 Unknown Rx 5-325 mg TAB] HYDROcodone/APAP 5-325 [[place] 1 each PO Q4HR PRN #15 tablet 02/25/19 Unknown Rx 5/325] Pantoprazole [Protonix TAB] 40 mg PO BID #60 tablet 02/25/19 Unknown Rx metFORMIN [Glucophage] 500 mg PO BID #60 tablet 02/25/19 Unknown Rx Docusate Sodium [Colace] 100 mg PO BID PRN #20 capsule 08/07/20 Unknown Rx Sulfamethoxazole/Trimethoprim 1 each PO BID #14 tablet 08/07/20 Unknown Rx [Bactrim DS TAB] methocarbamoL [Methocarbamol] 500 mg PO BID PRN #20 tablet 01/18/21 Unknown Rx traMADoL [Ultram 50 MG tab] 50 mg PO Q6HR PRN #8 tablet 01/18/21 Unknown Rx ED Physical Exam - General Limitations: Physical Limitation General appearance: alert, in no apparent distress - Head Head exam: Present: atraumatic, normocephalic - Eye Eye exam: Present: normal appearance. Absent: scleral icterus - Respiratory Respiratory exam: Absent: respiratory distress - Cardiovascular Cardiovascular Exam: Present: regular rate - Extremities Exam Extremities exam: Present: other (Tenderness to palpation of the left thigh, worse on the posterior aspect without skin changes, swelling, or erythema noted; normal sensation is noted; normal pedal pulses noted). Absent: calf tenderness - Neurological Exam Neurological exam: Present: alert, oriented X3 - Psychiatric Psychiatric exam: Present: normal affect, normal mood - Skin Skin exam: Present: warm, dry, intact, normal color. Absent: rash, pallor ED Course Vital Signs 01/17/21 01/18/21 01/18/21 18:35 00:30 01:30 Temperature 98.8 F Pulse Rate 93 H Respiratory 18 16 16 Rate Blood Pressure 173/87 Blood Pressure [Left] O2 Sat by Pulse 100 Oximetry 01/18/21 01/18/21 01/18/21 03:47 04:35 05:35 Temperature 98.1 F Pulse Rate 93 H Respiratory 18 16 16 Rate Blood Pressure 182/91 Blood Pressure [Left] O2 Sat by Pulse 99 Oximetry 01/18/21 05:53 Temperature 98.2 F Pulse Rate 82 Respiratory 16 Rate Blood Pressure Blood Pressure 162/82 [Left] O2 Sat by Pulse 100 Oximetry ED Medical Decision Making - Lab Data Result diagrams: 01/18/21 01:16 01/18/21 01:16 Lab Results 01/18/21 01/18/21 Range/Units 01:16 01:16 WBC 7.2 (4.5-11.0) K/mm3 RBC 2.62 L (3.65-5.03) M/mm3 Hgb 7.9 L (10.1-14.3) gm/dl Hct 23.0 L (30.3-42.9) % MCV 88 (79-97) fl MCH 30 (28-32) pg MCHC 34 (30-34) % RDW 18.1 H (13.2-15.2) % Plt Count 104 L (140-440) K/mm3 Lymph % (Auto) 5.7 L (13.4-35.0) % [place] % (Auto) 8.0 H (0.0-7.3) % Eos % (Auto) 2.1 (0.0-4.3) % Baso % (Auto) 0.5 (0.0-1.8) % Lymph # (Auto) 0.4 L (1.2-5.4) K/mm3 [place] # (Auto) 0.6 (0.0-0.8) K/mm3 Eos # (Auto) 0.2 (0.0-0.4) K/mm3 Baso # (Auto) 0.0 (0.0-0.1) K/mm3 Seg Neutrophils % 83.7 H (40.0-70.0) % Seg Neutrophils # 6.0 (1.8-7.7) K/mm3 Sodium 138 (137-145) mmol/L Potassium 3.8 (3.6-5.0) mmol/L Chloride 105.2 (98-107) mmol/L Carbon Dioxide 23 (22-30) mmol/L Anion Gap 14 mmol/L BUN 30 H (7-17) mg/dL Creatinine 0.9 (0.6-1.2) mg/dL Estimated GFR > 60 ml/min BUN/Creatinine Ratio 33 % Glucose 132 H (65-100) mg/dL Calcium 8.9 (8.4-10.2) mg/dL - Medical Decision Making 45-year-old -[place] female patient with history of diabetes, hypertension, and cervical cancer (currently on chemo) presents with complaints of sudden onset of left thigh pain starting today. She denies any injuries, fever/chills/sweats, or difficulty moving her leg. Pain worsens with touch per patient. She also denies any recent long travel, hemoptysis/cough, shortness of breath, numbness/tingling/weakness in the leg, or hormone use. Patient rates her pain as a 9/10 in severity. Chronic anemia noted on CBC. No significant abnormalities noted on CMP. Doppler ultrasound is negative for DVT. No bony abnormalities or cancerous lesions noted of the left femur on x-ray. Normal pedal pulse and coloration noted on exam without swelling or erythema. Recommend patient follows up with a primary care provider within 2 to 3 days for further evaluation. Patient is otherwise well-appearing and stable for discharge home. Strict return precautions were discussed in detail with patient who verbalizes understanding Critical care attestation.: If time is entered above; I have spent that time in minutes in the direct care of this critically ill patient, excluding procedure time. ED Disposition Clinical Impression: Left thigh pain, Chronic anemia Disposition: DC-01 TO HOME OR SELFCARE Is pt being admited?: No Condition: Stable Instructions: Pain Without a Known Cause Prescriptions: methocarbamoL [Methocarbamol] 500 mg PO BID PRN #20 tablet PRN Reason: muscle spasm/tightness traMADoL [Ultram 50 MG tab] 50 mg PO Q6HR PRN #8 tablet PRN Reason: Pain Referrals: PRIMARY CARE, [Primary Care Provider] - 2-3 Days
--- NOTE | 2021-01-18 01:42 | Vascular Lab Report ---
DUPLEX DOPPLER LOWER EXTREMITY VEINS, LEFT INDICATION / CLINICAL INFORMATION: pain in thigh. TECHNIQUE: Duplex doppler imaging was performed through the veins of the left lower extremity using v enous compression and other maneuvers. COMPARISON: None available. FINDINGS: LEFT COMMON FEMORAL VEIN: Negative. LEFT FEMORAL VEIN: Negative. LEFT POPLITEAL VEIN: Negative. LEFT CALF VEINS: Negative. ADDITIONAL FINDINGS: None. IMPRESSION: 1. No sonographic evidence for DVT in the left lower extremity. Signer Name: Addison Glez MD Signed: 01/18/2021 1:37 AM Workstation Name: [id number]
[2021-01-18 01:59] LABS: Basophils % (Auto) 0.5 % (0.0-1.8); Eosinophils # (Auto) 0.2 K/mm3 (0.0-0.4); Eosinophils % (Auto) 2.1 % (0.0-4.3); Hemoglobin 7.9 gm/dl (10.1-14.3); Lymphocytes # (Auto) 0.4 K/mm3 (1.2-5.4); Lymphocytes % (Auto) 5.7 % (13.4-35.0); Mean Corpuscular HGB Conc 34 % (30-34); Mean Corpuscular Volume 88 fl (79-97); Monocytes # (Auto) 0.6 K/mm3 (0.0-0.8); Platelet Count 104 K/mm3 (140-440); Red Blood Count 2.62 M/mm3 (3.65-5.03); Red Cell Distribution Width 18.1 % (13.2-15.2)
[2021-01-18 02:18] LABS: BUN/Creatinine Ratio 33; Blood Urea Nitrogen 30 mg/dL (7-17); Calcium 8.9 mg/dL (8.4-10.2); Hemolysis Index 3
--- NOTE | 2021-01-18 04:22 | XRay Report ---
LEFT FEMUR 2 VIEW(S) INDICATION / CLINICAL INFORMATION: acute pain, active cancer COMPARISON: None available. FINDINGS: BONES / JOINT(S): No acute fracture or subluxation. No significant arthritis. SOFT TISSUES: No significant abnormality. ADDITIONAL FINDINGS: None. Signer Name: Addison Glez MD Signed: 01/18/2021 4:18 AM Workstation Name: [id number]
[2021-01-18] MEDS ORDERED: IBUPROFEN 800 MG TAB PO STA (04:27)
[2021-01-18 05:53] VITALS: BP 162/82
== END 2021-01-18 05:56 | disposition home or self-care (01) ==
LOC: ED 17:15
DX: M79.652 Pain in left thigh (principal); D64.9 Anemia, unspecified; E11.9 Type 2 diabetes mellitus without complications; J45.909 Unspecified asthma, uncomplicated; Z87.891 Personal history of nicotine dependence; Z79.899 Other long term (current) drug therapy; Z98.51 Tubal ligation status
CPT/HCPCS: 36415; 80048; 82550; 85025

== ENCOUNTER 2021-10-20 09:32 | Emergency (ER) | payer MEDICAID ==
--- NOTE | 2021-10-20 14:04 | Emergency Department Report ---
ED Extremity Problem HPI - General Chief complaint: Extremity Injury, Lower Stated complaint: right leg pain Time Seen by Provider: 10/20/21 13:00 Source: EMS Mode of arrival: Stretcher Limitations: No Limitations - History of Present Illness Initial comments: This is a 46-year-old female with past medical history of diabetes controlled with medication who presents to the ED today complaining of right anterior thigh pain that started a few months ago but got worse after fall x1 week ago. Patient says she was at a grocery store when she excellently slipped and fell. Patient has has been ambulatory since incident. Patient states that the past 2 days she has felt a throbbing pain on her right anterior thigh with palpation. Patient denies any swelling or radiation of pain elsewhere. She rates pain about a 4 5 out of 10. Patient denies any hip pain, pelvic pain, joint pain or calf pain. She also denies any chest pain, shortness of breath, abdominal pain or loss of sensation anywhere MD Complaint: extremity pain Location: right, lower extremity -: Yes myalgia Radiation: none Severity scale (0 -10): 3 Quality: aching Consistency: intermittent - Related Data Previous Rx's Medication Instructions Recorded Last Taken Type Ciprofloxacin HCl [Cipro] 500 mg PO BID #14 tablet 10/09/17 Unknown Rx HYDROcodone/APAP 5-325 [[place] 1 each PO Q6HR PRN #14 tablet 10/09/17 Unknown Rx 5/325] Ondansetron [Zofran Odt] 4 mg PO Q8HR #10 tab.rapdis 10/09/17 Unknown Rx Amoxicillin [Trimox CAP] 1,000 mg PO Q12HR #42 capsule 02/25/19 Unknown Rx Clarithromycin [Biaxin] 500 mg PO Q12HR #18 tablet 02/25/19 Unknown Rx Dicyclomine [Bentyl] 20 mg PO QID #20 tablet 02/25/19 Unknown Rx Glimepiride [Amaryl] 1 mg PO QAM #30 tablet 02/25/19 Unknown Rx HYDROcodone/APAP 5-325 [[place] 1 each PO Q4H PRN #20 tablet 02/25/19 Unknown Rx 5-325 mg TAB] HYDROcodone/APAP 5-325 [[place] 1 each PO Q4HR PRN #15 tablet 02/25/19 Unknown Rx 5/325] Pantoprazole [Protonix TAB] 40 mg PO BID #60 tablet 02/25/19 Unknown Rx metFORMIN [Glucophage] 500 mg PO BID #60 tablet 02/25/19 Unknown Rx Docusate Sodium [Colace] 100 mg PO BID PRN #20 capsule 08/07/20 Unknown Rx Sulfamethoxazole/Trimethoprim 1 each PO BID #14 tablet 08/07/20 Unknown Rx [Bactrim DS TAB] methocarbamoL [Methocarbamol] 500 mg PO BID PRN #20 tablet 01/18/21 Unknown Rx traMADoL [Ultram 50 MG tab] 50 mg PO Q6HR PRN #8 tablet 01/18/21 Unknown Rx Acetaminophen/Codeine [Tylenol 1 tab PO Q6H PRN #10 tab 10/20/21 Unknown Rx /Codeine # 3 tab] methOCARBAMOL [Robaxin TAB] 500 mg PO BID #20 tab 10/20/21 Unknown Rx Allergies Allergy/AdvReac Type Severity Reaction Status Date / Time No Known Allergies Allergy Verified 10/20/21 09:37 ED Review of Systems ROS: Stated complaint: right leg pain Other details as noted in HPI Comment: All other systems reviewed and negative ED Past Medical Hx - Past Medical History Hx Hypertension: No Hx Heart Attack/AMI: No Hx Diabetes: Yes Hx Deep Vein Thrombosis: No Hx Liver Disease: No (patient denies however possible cirrhosis w/ gastric varices on CT ) Hx Renal Disease: No Hx Seizures: No Hx Asthma: Yes Hx HIV: No - Surgical History Hx Pacemaker: No Hx Internal Defibrillator: No Additional Surgical History: Tubal Ligation - Social History Smoking Status: Former Smoker Substance Use Type: None - Medications Home Medications: Home Medications Medication Instructions Recorded Confirmed Last Taken Type Ciprofloxacin HCl [Cipro] 500 mg PO BID #14 tablet 10/09/17 02/19/19 Unknown Rx HYDROcodone/APAP 5-325 [[place] 1 each PO Q6HR PRN #14 tablet 10/09/17 02/19/19 Unknown Rx 5/325] Ondansetron [Zofran Odt] 4 mg PO Q8HR #10 tab.rapdis 10/09/17 02/19/19 Unknown Rx Amoxicillin [Trimox CAP] 1,000 mg PO Q12HR #42 capsule 02/25/19 Unknown Rx Clarithromycin [Biaxin] 500 mg PO Q12HR #18 tablet 08/24/19 Unknown Rx Dicyclomine [Bentyl] 20 mg PO QID #20 tablet 02/25/19 Unknown Rx Glimepiride [Amaryl] 1 mg PO QAM #30 tablet 02/25/19 Unknown Rx HYDROcodone/APAP 5-325 [[place] 1 each PO Q4H PRN #20 tablet 02/25/19 Unknown Rx 5-325 mg TAB] HYDROcodone/APAP 5-325 [[place] 1 each PO Q4HR PRN #15 tablet 02/25/19 Unknown Rx 5/325] Pantoprazole [Protonix TAB] 40 mg PO BID #60 tablet 02/25/19 Unknown Rx metFORMIN [Glucophage] 500 mg PO BID #60 tablet 02/25/19 Unknown Rx Docusate Sodium [Colace] 100 mg PO BID PRN #20 capsule 08/07/20 Unknown Rx Sulfamethoxazole/Trimethoprim 1 each PO BID #14 tablet 08/07/20 Unknown Rx [Bactrim DS TAB] methocarbamoL [Methocarbamol] 500 mg PO BID PRN #20 tablet 01/18/21 Unknown Rx traMADoL [Ultram 50 MG tab] 50 mg PO Q6HR PRN #8 tablet 01/18/21 Unknown Rx Acetaminophen/Codeine [Tylenol 1 tab PO Q6H PRN #10 tab 10/20/21 Unknown Rx /Codeine # 3 tab] methOCARBAMOL [Robaxin TAB] 500 mg PO BID #20 tab 10/20/21 Unknown Rx ED Physical Exam - General Limitations: No Limitations General appearance: alert, in no apparent distress - Head Head exam: Present: atraumatic, normocephalic - Eye Eye exam: Present: normal appearance - ENT ENT exam: Present: mucous membranes moist - Neck Neck exam: Present: normal inspection - Respiratory Respiratory exam: Present: normal lung sounds bilaterally. Absent: respiratory distress - Cardiovascular Cardiovascular Exam: Present: regular rate, normal rhythm. Absent: systolic murmur, diastolic murmur, rubs, gallop - GI/Abdominal GI/Abdominal exam: Present: soft, normal bowel sounds - Extremities Exam Extremities exam: Present: normal inspection - Expanded Lower Extremity Exam Right Hip exam: Present: normal inspection, full ROM. Absent: tenderness, swelling Upper Leg exam: Present: normal inspection, full ROM, tenderness (To palpation of the anterior thigh). Absent: swelling, abrasion, laceration, ecchymosis Knee exam: Present: normal inspection, full ROM. Absent: tenderness, swelling, abrasion, laceration Lower Leg exam: Present: normal inspection, full ROM. Absent: tenderness, swelling, abrasion, dislocation, erythema, Светлана's sign Ankle exam: Present: normal inspection, full ROM. Absent: tenderness Foot/Toe exam: Present: normal inspection, full ROM. Absent: tenderness, s welling - Back Exam Back exam: Present: normal inspection - Neurological Exam Neurological exam: Present: alert, oriented X3 - Psychiatric Psychiatric exam: Present: normal affect, normal mood - Skin Skin exam: Present: warm, dry, intact, normal color. Absent: rash ED Course Vital Signs 10/20/21 09:37 Temperature 98.6 F Pulse Rate 87 Respiratory 16 Rate Blood Pressure 180/80 [Right] O2 Sat by Pulse 99 Oximetry ED Medical Decision Making - Medical Decision Making 46-year-old female presented with right thigh myalgia. Patient was in no distress throughout ED stay. Discussed follow-up with primary care physician. Discussed pain control with Motrin for muscle relaxer. Patient ambulatory without any problems. Patient was in normal state of mind and had no neurological deficit. - Differential Diagnosis Arthralgia, arthritis, sciatica, myalgia Critical care attestation.: If time is entered above; I have spent that time in minutes in the direct care of this critically ill patient, excluding procedure time. ED Disposition Clinical Impression: Muscle strain of right thigh Disposition: 01 HOME / SELF CARE / HOMELESS Is pt being admited?: No Does the pt Need Aspirin: No Condition: Stable Instructions: Muscle Strain, [id number], How to Use Cold Therapy, [id number] Additional Instructions: Make sure to follow up with the primary care physician as discussed. Take all your medications as you've been prescribed. If you have any worsening symptoms or develop new symptoms please return to ED immediately. Referrals: PRIMARY CARE, [Primary Care Provider] - 3-5 Days Forms: Work/School Release Form(ED) Time of Disposition: 14:09
[2021-10-20 14:32] VITALS: BP 165/72
== END 2021-10-20 14:33 | disposition home or self-care (01) ==
LOC: ED 09:32
DX: S76.911A Strain of unspecified muscles, fascia and tendons at thigh level, right thigh, initial encounter (principal); Z87.891 Personal history of nicotine dependence; J45.909 Unspecified asthma, uncomplicated; X58.XXXA Exposure to other specified factors, initial encounter; Y93.89 Activity, other specified; Y92.89 Other specified places as the place of occurrence of the external cause; Y99.8 Other external cause status
CPT/HCPCS: 99283